=== PATIENT | female | born 1955 ===

== ENCOUNTER 2020-04-14 08:19 | Outpatient (REF) | payer MEDICARE, SELFPAY ==
[2020-04-14 09:37] LABS: MANUAL DIFF FLAG NO
[2020-04-14 09:43] LABS: Basophils Percent Auto 0.5 % (0-2); Eosinophils Absolute Auto 0.2 X10*3/uL (0.0-0.4); Eosinophils Percent Auto 2.3 % (0-4); Hematocrit 42.6 % (37-47); Hemoglobin 13.8 g/dl (12.0-16.0); Imm Gran Abs Auto 0.01 X10*3/uL (0.00-0.03); Imm Gran Pct Auto 0.1 % (0.0-0.4); Lymphocytes Absolute Auto 3.4 X10*3/uL (1.2-4.9); Lymphocytes Percent Auto 41.2 % (20-40); Mean Corpuscular HGB Conc 32.4 g/dl (31.0-35.0); Mean Corpuscular Hemoglobin 30.9 pg (27.0-33.0); Mean Corpuscular Volume 95.3 fL (80-98); Monocytes Absolute Auto 0.6 X10*3/uL (0.1-1.2); Monocytes Percent Auto 7.5 % (2-11); Neutrophils Percent Auto 48.4 % (45-73); Platelet Count 289 X10*3/uL (160-400); Red Blood Count 4.47 X10*6/uL (4.20-5.50); Red Cell Distribution Width 14.1 % (11.0-16.0); White Blood Count 8.3 X10*3/uL (4.8-10.8)
[2020-04-14 10:07] LABS: Alanine Aminotransferase 17 U/L (0-31); Albumin Level 4.1 g/dL (3.5-5.0); Alkaline Phosphatase 141 U/L (39-117); Anion Gap 13 (12-20); Aspartate Amino Transferase 16 U/L (5-31); Bilirubin Total 0.5 mg/dL (0.0-1.0); Blood Urea Nitrogen 9 mg/dL (9-16); Calcium 8.9 mg/dL (8.4-10.2); Carbon Dioxide 28 mmol/L (22-29); Chloride 106 mmol/L (96-108); Cholesterol 165 mg/dL; Estimated Glomerular Filt Rate > 60; Glucose Fasting 87 mg/dL (60-99); HDL Cholesterol 53 mg/dL; LDL Cholesterol Calculated 90 mg/dl; Potassium 4.1 mmol/l (3.3-5.1); Sodium 143 mmol/L (135-145); Total Protein 7.2 g/dL (6.5-8.0); Triglycerides 110 mg/dL
== END 2020-04-14 08:20 | disposition home or self-care (01) ==
LOC: HO.LAB 08:19
PROVIDERS: PCP Internal Medicine; Visit Provider Internal Medicine
DX: E78.5 Hyperlipidemia, unspecified (principal); E11.9 Type 2 diabetes mellitus without complications
CPT/HCPCS: 36415; 80053; 80061; 85025

== ENCOUNTER 2021-01-08 09:12 | Outpatient (REF) | payer MEDICARE, SELFPAY ==
[2021-01-08 11:21] LABS: Alanine Aminotransferase 20 U/L (0-31); Albumin Level 4.2 g/dL (3.5-5.0); Alkaline Phosphatase 133 U/L (39-117); Anion Gap 16 (12-20); Aspartate Amino Transferase 16 U/L (5-31); Bilirubin Total 0.5 mg/dL (0.0-1.0); Blood Urea Nitrogen 10 mg/dL (9-16); Calcium 9.6 mg/dL (8.4-10.2); Carbon Dioxide 27 mmol/L (22-29); Chloride 105 mmol/L (96-108); Cholesterol 169 mg/dL; Estimated Glomerular Filt Rate > 60; Glucose Fasting 101 mg/dL (60-99); HDL Cholesterol 56 mg/dL; LDL Cholesterol Calculated 92 mg/dl; Sodium 144 mmol/L (135-145); Total Protein 7.6 g/dL (6.5-8.0); Triglycerides 108 mg/dL
== END 2021-01-08 09:13 | disposition home or self-care (01) ==
LOC: HO.LAB 09:12
PROVIDERS: PCP Internal Medicine; Referring Provider Internal Medicine; Visit Provider Nurse Practitioner Family
DX: E78.5 Hyperlipidemia, unspecified (principal); Z13.1 Encounter for screening for diabetes mellitus
CPT/HCPCS: 36415; 80053; 80061

== ENCOUNTER 2021-03-09 07:22 | Outpatient (REF) | payer MEDICARE, SELFPAY ==
--- NOTE | ~2021-03-09 | MM_ITS ---
EXAMINATION: MM SCREENING DIGITAL BREAST TOMOSYNTHESIS, BILATERAL CLINICAL INFORMATION: Screening. Asymptomatic. The lifetime risk of breast cancer based on the Tyrer-Cuzick Model is 7.8%. COMPARISON: Mammography: 04/17/2019 and studies dating back to 08/24/2015. TECHNIQUE: Digital breast tomosynthesis was performed in both the craniocaudal and mediolateral oblique views along with computer-aided detection (CAD). Synthesized 2D images were generated from the tomosynthesis. FINDINGS: The breasts are heterogeneously dense, which may obscure small masses (ACR BI-RADS breast composition Category c). There is a stable parenchymal pattern seen bilaterally with a region of some asymmetric density about the anterior central and medial aspect of the right breast. There is multiplicity and bilaterality of calcifications with the majority being stable. There is one linear grouping of calcifications about the inferior aspect deep left breast, likely benign as well, however magnification views in craniocaudal and 90 degree mediolateral views are suggested. MM/MM tomosynthesis screening BI IMPRESSION: Probable benign left breast calcifications for further evaluation. ASSESSMENT: BI-RADS 0: Incomplete - Need Additional Imaging Evaluation RECOMMENDATION: 1. Additional views of the left breast. This patient's information was entered into a reminder system with a target due date for their next mammogram.
--- NOTE | ~2021-03-09 | MM_ITS ---
EXAMINATION: BONE DENSITOMETRY CLINICAL INDICATION: Menopause. COMPARISON: None (current study represents initial baseline exam). TECHNIQUE: Using a [employer] DXA System (software version: 13.1) manufactured by [employer], dual-energy x-ray absorptiometry was performed of the lumbar spine and right hip. The images are of good technical quality. Summary results are attached. FINDINGS: AP SPINE L1-L4: BMD 1.345 g/cm2, Z-score 2.2, T-score 1.4, normal. RIGHT FEMUR, NECK: BMD 0.828 g/cm2, Z-score -0.5, T-score -1.5, osteopenia. RIGHT FEMUR, TOTAL: BMD 0.782 g/cm2, Z-score -1.1, T-score -1.8, osteopenia. IDENTIFIED RISK FACTORS: Menopause, history of fracture (adult), osteoporosis. HISTORY OF FRACTURE: Spine, femur/hip, shoulder, elbow. MEDICATIONS: Vitamin D. MM/XR DEXA axial skeleton IMPRESSION: 1. DIAGNOSIS: Osteopenia based on the lowest T-score value of -1.8 in the total femur applying World Health Organization criteria. 2. 10-YEAR FRACTURE RISK PREDICTION, FRAX: Major osteoporotic fracture (clinical spine, forearm, hip or shoulder) 13.8%. Hip fracture 1.4%. 3. Treatment Recommendations: NOF guidelines recommend consideration for treatment in postmenopausal women and men age 50 and older presenting with the following: -A hip or vertebral (clinical or morphometric) fracture. -T-score less than or equal to -2.5 at the femoral neck or spine after appropriate evaluation to exclude secondary causes. -Low bone mass at the hip or spine and a 10-year fracture probability by FRAX of greater than or equal to 3% for hip fracture or greater than or equal to 20% for major osteoporotic fracture based on the [place] adapted WHO algorithm. 4. Other Recommendations: All treatment decisions require clinical judgment and consideration of individual patient factors, including patient preferences, comorbidities, previous drug use, risk factors not captured in the FRAX model (e.g. frailty, falls, vitamin D deficiency, increased bone turnover, interval significant decline in bone density) and possible under or overestimation of fracture risk by FRAX. Additional medical evaluation for secondary cause of low bone mineral density may be appropriate. FUTURE SCAN RECOMMENDATION: People with diagnosed cases of osteoporosis or at high risk for fracture should have regular bone mineral density tests. For patients eligible for Medicare, routine testing is allowed once every 2 years. The testing frequency can be increased to one year for patients who have rapidly progressing disease, those who are receiving or discontinuing medical therapy to restore bone mass, or have additional risk factors.
== END 2021-03-09 07:23 | disposition home or self-care (01) ==
LOC: HO.MAMMO 07:22
PROVIDERS: Visit Provider Internal Medicine
DX: Z13.820 Encounter for screening for osteoporosis (principal); Z78.0 Asymptomatic menopausal state; Z12.31 Encounter for screening mammogram for malignant neoplasm of breast
CPT/HCPCS: 77063; 77067; 77080

== ENCOUNTER 2021-03-12 07:57 | Outpatient (REF) | payer MEDICARE, SELFPAY ==
--- NOTE | ~2021-03-12 | MM_ITS ---
EXAMINATION: MM DIAGNOSTIC DIGITAL MAMMOGRAPHY, LEFT CLINICAL INFORMATION: Recall from screening for increased grouped calcifications posterior 6:00 left breast. COMPARISON: Mammography: 03/09/2021, 04/17/2019 TECHNIQUE: Digital mammography is performed in the following views: Magnification CC, magnification ML. FINDINGS: There are scattered areas of fibroglandular density (ACR BI-RADS breast composition Category b). The additional magnification views show increased grouped relatively coarse calcifications posterior 6:00 position. Suspect probable fibroadenomatous changes. Calcifications will be reassessed again in 6 months with diagnostic mammography to include magnification views. Results are discussed with the patient at time of visit. MM/MM added views LT IMPRESSION: Increased grouped relatively coarse calcifications posterior 6:00 position, suspect fibroadenomatous change. ASSESSMENT: BI-RADS 3: Probably Benign RECOMMENDATION: Diagnostic left mammography in 6 months. This patient's information was entered into a reminder system with a target due date for their next mammogram.
== END 2021-03-12 07:58 | disposition home or self-care (01) ==
LOC: HO.MAMMO 07:57
PROVIDERS: Visit Provider Internal Medicine
DX: R92.1 Mammographic calcification found on diagnostic imaging of breast (principal)
CPT/HCPCS: 77065

== ENCOUNTER 2021-10-06 13:34 | Outpatient (REF) | payer OTHER, SELFPAY ==
--- NOTE | ~2021-10-06 | MM_ITS ---
EXAMINATION: MM DIAGNOSTIC DIGITAL BREAST TOMOSYNTHESIS, LEFT CLINICAL INFORMATION: Short interval six-month follow-up probable benign coarse calcifications posterior 6:00 position, suspect fibroadenomatous change. TC score 8%. COMPARISON: Mammography: 03/12/2021, 03/09/2021 (BI-RADS 0), 04/17/2019, 08/25/2015 TECHNIQUE: Digital breast tomosynthesis is performed in both the craniocaudal and mediolateral oblique views along with computer-aided detection (CAD). Synthesized 2D images are generated from the tomosynthesis. Additional magnification CC and magnification ML views are obtained. FINDINGS: There are scattered areas of fibroglandular density (ACR BI-RADS breast composition Category b). Parenchymal pattern is similar to prior studies and there is no developing density or interval mass or architectural abnormality. Again, there are scattered round and rim calcifications. Calcifications for follow-up posterior central 6:00 position are relatively coarse and tightly grouped and without significant change. Fibroadenomatous calcifications are suspected. These will be reassessed again in 6 months at time of bilateral annual mammography. Results are provided to the patient at time of visit by the technologist. MM/MM tomosynthesis diagnostic LT IMPRESSION: Probable benign calcifications posterior central 6:00 position, no significant change. ASSESSMENT: BI-RADS 3: Probably Benign RECOMMENDATION: Diagnostic mammography at time of annual bilateral exam, due in 6 months. This patient's information was entered into a reminder system with a target due date for their next mammogram.
== END 2021-10-06 13:35 | disposition home or self-care (01) ==
LOC: HO.MAMMO 13:34
PROVIDERS: PCP Internal Medicine; Visit Provider Internal Medicine
DX: R92.1 Mammographic calcification found on diagnostic imaging of breast (principal)
CPT/HCPCS: 77061; 77065

== ENCOUNTER 2021-11-07 12:32 | Emergency (ER) | payer OTHER, SELFPAY ==
--- NOTE | ~2021-11-07 | XR_ITS ---
EXAMINATIONS: XR wrist LT 2V CLINICAL INFORMATION: Reason for Exam FALL COMPARISON: None VIEWS: Frontal lateral and oblique scaphoid view FINDINGS: There is a comminuted intra-articular fracture of the distal radius. Distal ulna and ulnar styloid are intact. Carpal bones, intercarpal and carpometacarpal joints are intact. Bone alignments otherwise satisfactory. XR/XR wrist LT 2V IMPRESSION: Comminuted mildly displaced intra-articular distal radial fracture.
--- NOTE | ~2021-11-07 | CT_ITS ---
EXAMINATION: CT HEAD WITHOUT CONTRAST CT FACIAL BONES WITHOUT CONTRAST CT CERVICAL SPINE WITHOUT CONTRAST CLINICAL INFORMATION: Fall. Injury. Head and neck pain. COMPARISON: Brain MRI from 04/01/2009 TECHNIQUE: Imaging was performed from the skull base to vertex without intravenous administration of contrast. In addition, helical noncontrast CT imaging was acquired through the cervical spine and facial bones and source images were reviewed along with axial reconstructions and sagittal and coronal MPRs. This CT examination was performed using dose optimization techniques as appropriate, variously including the following: *Automated exposure control. *Adjustment of mA and/or kV according to patient size (this includes techniques or standardized protocols for targeted exams where dose is matched to indication/reason for exam; i.e. extremities or head). *Use of iterative reconstruction technique. DLP: 1462 mGy-cm FINDINGS: Head: There is no evidence of acute intracranial hemorrhage or edematous territorial infarction. There is no abnormal attenuation within the brain parenchyma. Whiting-white matter differentiation is preserved. The ventricles are normal in size and configuration. No evidence for obstructive hydrocephalus. No abnormal mass effect or midline shift. No extra-axial fluid collections. Calcific atherosclerotic disease of the intracranial internal carotid and vertebral arteries. No hyperdense vessel sign. No acute soft tissue or osseous abnormalities. The mastoid air cells and middle ear cavities remain well aerated. Maxillofacial Bones: No evidence of maxillofacial bone fractures. The zygomatic arches remain intact. No nasal bone fracture. The nasal septum remains midline. No evidence of mandibular or maxillary fracture. The mandibular condyles remain well-seated in their respective temporal articular grooves. Normal appearance of the intraconal and extraconal fat. No evidence of traumatic injury to the extraocular musculature or globes. The paranasal sinuses and mastoid air cells remain well aerated. No layering fluid collections. Multifocal odontogenic enamel erosions and periapical lucencies. Cervical Spine: The atlantooccipital and atlantoaxial articulations remain well aligned. Straightening of the normal cervical lordosis. Otherwise, there is anatomic alignment of the vertebral bodies and posterior elements. No evidence of acute fracture or subluxation. Congenital nonunion of the posterior arch of C1. The vertebral body heights are maintained. Advanced degenerative disc disease at C6-C7. Moderate degenerative disc disease from C3-C6. Associated disc-osteophyte complex formation. There appears to be at least mild spinal canal stenosis at C5-C6. Facet and uncovertebral joint arthropathy leads to osseous encroachment on the neural foramina from C2-C7. There is no prevertebral soft tissue swelling. The thyroid gland and remaining cervical soft tissues are normal in appearance. The lung apices demonstrate no abnormalities. CT/CT cervical spine wo con IMPRESSION: 1. No evidence of acute intracranial hemorrhage or edematous territorial infarction. 2. No evidence of acute fracture or traumatic subluxation of the cervical spine. 3. Moderate multilevel degenerative spondyloarthropathy of the cervical spine. Most notably on this limited exam without intrathecal contrast, there appears to be at least mild spinal canal stenosis at C5-C6. 4. No evidence of acute fracture of the maxillofacial bones. Moderate multifocal odontogenic disease.
--- NOTE | ~2021-11-07 | XR_ITS ---
EXAMINATION: XR ELBOW, RIGHT CLINICAL INFORMATION: Fall COMPARISON: None TECHNIQUE: AP, lateral, and oblique views of the right elbow. FINDINGS: Mildly displaced intra-articular radial head fracture. Anterior sail sign and positive posterior fat pad. Distal humerus and proximal ulna are intact. XR/XR elbow RT 2V IMPRESSION: Mildly displaced intra-articular radial head fracture.
[2021-11-07 13:00] VITALS: BP 176/90; PULSE 102; RESP 18; O2SAT 96; BMI 32.9
--- NOTE | 2021-11-07 14:11 | ED_ITS ---
HPI - General Adult General Chief complaint: Fall Stated complaint: fall; shoulder and elbow pain Time Seen by Provider: 11/07/21 14:10 Source: patient and family (daughter) Mode of arrival: ambulatory Limitations: no limitations History of Present Illness HPI narrative: Patient is a 66 year old female presenting to the emergency department today with right elbow pain and left wrist pain. Patient states that she was walking when she tripped and fell forward. Patient states that she struck her head but did not have any loss of consciousness. Patient denies any dizziness, lightheadedness, abdominal pain, nausea, vomiting, fever, chills, blurry vision, double vision, loss of vision, chest pain, difficulty breathing, shortness of breath, back pain, night sweats, pain with urination, increased urinary frequency, increased urinary urgency, blood in her urine or stool, syncope or a near syncopal episode, bowel incontinence, bladder incontinence, bowel retention, bladder retention, or any other complaints at this time. Onset (ago): minute(s) Location: face, left, right and upper extremity Radiation: non-radiation Severity: mild Severity scale (1-10): 5 Quality: dull Pain Consistency: constant Relieving factors: none Exacerbating factors: movement Associated symptoms: denies other symptoms Treatments prior to arrival: none Related Data Home Medications Medication Instructions Recorded Confirmed atorvastatin 10 mg tablet 10 mg PO BEDTIME 11/07/21 11/07/21 cetirizine 10 mg capsule (Zyrtec) 10 mg PO BEDTIME 11/07/21 11/07/21 Allergies Allergy/AdvReac Type Severity Reaction Status Date / Time prednisone [PREDNISONE] Allergy Intermediate anxiety Verified 08/05/21 10:46 doxycycline [DOXYCYCLINE] Allergy Unknown NAUSEA & Verified 08/05/21 10:46 VOMITING, vomiting Review of Systems Constitutional: Constitutional: Reports no additional constitutional complaints, Denies chills, Denies fever(s) and Denies night sweats Eyes: Eyes: Reports no additional eye complaints, Denies blurry vision, Denies change in vision, Denies diplopia, Denies eye discharge, Denies loss of vision and Denies eye pain ENT: Denies dizziness Cardiovascular: Cardiovascular: Reports no additional cardiovascular complaints, Denies chest pain, Denies lightheadedness, Denies Loss of Consciousness and Denies dyspnea Respiratory: Respiratory: Reports no additional respiratory complaints and Denies dyspnea Gastrointestinal: Gastrointestinal: Reports no additional gastrointestinal complaints, Denies abdominal pain, Denies melena, Denies hematochezia, Denies change in bowel habits and Denies change in stool character Genitourinary: Genitourinary: Denies hematuria, Denies urinary frequency, Denies dysuria, Denies urinary incontinence, Denies urinary hesitancy and Denies urinary urgency Musculoskeletal: Musculoskeletal: Reports no additional musculoskeletal complaints, Denies numbness and Denies tingling Comments: right elbow pain, left wrist pain Neurologic: Denies dizziness, Denies loss of vision, Denies numbness and Denies tingling Psychiatric: Psychiatric: Reports no additional psychiatric complaints Endocrine: Endocrine: Reports no additional endocrine complaints Hematologic/Lymphatic: Hematologic/Lymphatic: Reports no additional hematologic/lymphatic complaints Allergic/Immunologic: Allergic/Immunologic: Reports no additional allergic/immunologic complaints PMFSH Past Medical History Attestation statement: The following information was validated with the patient. Source: old records reviewed Medical History Acute sinusitis Hyperlipidemia Hypertension Obesity Post-menopausal Screening for breast cancer Screening for diabetes mellitus Surgical History History of cholecystectomy History of hip surgery Family History Family History Father Cerebral aneurysm Mother Stroke Renal failure Maternal Grandmother Glaucoma Social History Social History Housing: Apartment Alcohol intake: never Patient Tobacco Use Status: Former Tobacco user Tobacco use type: Cigarette e-Cigarette/Vaping Use: Never Used Second Hand Smoke Exposure: No Advance Directives: No Advance Directives Information Provided: No Current occupational status: retired Cognitive needs: No Hearing needs: No Vision needs: No Physical Exam ED Vital Signs: Vital Signs - 24 hr 11/07/21 13:00 Pulse Rate 102 H Respiratory Rate 18 Blood Pressure 176/90 H Pulse Oximetry 96 Oxygen Delivery Method Room Air BMI result Body Mass Index 32.9 Const General: cooperative, no acute distress, alert and awake Nutritional Appearance: well nourished Orientation/consciousness: patient oriented x3 Limitations: no limitations HENMT Other: minimal bruising to the right facial cheek Ears: hearing grossly normal bilaterally and external ears normal General nose exam: Normal external nose present, no nasal discharge noted and no epistaxis Face and sinus: Yes normal facial exam, No abrasion and No laceration Mouth: Normal oral and palatal mucosa present, no drooling and no muffled voice Eyes General: appearance normal, both eyes and all related structures Periorbital: periorbital findings normal Eyelids: Yes eyelids normal Conjunctivae: conjunctivae normal Pupils: Equal, round and reactive pupils present EOM: EOMs intact bilaterally Neck Neck: Yes normal visual inspection, Yes full ROM and Yes no lymphadenopathy Chest Chest palpation & inspection: normal inspection of the chest Resp Effort & Inspection: normal respiratory effort and able to speak in complete sentences Auscultation: clear to auscultation bilaterally Cardio Rate: regular rate Rhythm: regular rhythm GI Inspection: Yes normal to inspection Palpation (GI): Soft to palpation, not firm, nontender and no guarding General: Yes no CVA tenderness Back/Spine/Pelvis Back: no CVA tenderness Cervical Spine: normal cervical lordosis and cervical ROM normal Thoracic/Lumbar Spine: thoracic and lumbar spine normal to inspection and thoraco-lumbar ROM normal Pelvis: no pain with anterior-posterior compression Neuro General: patient oriented x3 and moves all extremities Cranial nerves: Yes Equal, round and reactive pupils present Cognition (Neuro): normal cognition Motor exam (neuro): 5/5 motor strength present throughout Sensory Exam: Normal double simultaneous stimulation for sensation Coordination: [id number] test normal Extrem Other: pain with movement in the left wrist and right elbow General: Yes normal to inspection and Yes capillary refill normal Psych Appearance: grossly normal Mental Status: mental status grossly normal Affect: normal affect Attitude: cooperative Thought process: Normal thought process present Thought content: Normal thought content present Insight: Good insight present (Psych) Procedures Orthopedic Splinting/Casting Injury #1: Side: right Upper Extremity Injury Location: elbow Upper Extremity Immobilizer: sling/shoulder immobilizer Injury #2: Side: left Upper Extremity Injury Location: wrist Upper Extremity Immobilizer: sling/shoulder immobilizer and sugar tong splint Medical Decision Making [facility] Narrative Medical decision making narrative: Patient is a 66 year old female presenting to the emergency department today with right elbow pain and left wrist pain after a fall. Patient's physical exam showed minimal bruising to the right facial cheek, and pain with ROM of the right elbow and left wrist. Patient's left wrist x-ray showed an acute comminuted, mildly displaced, intra-articular, distal radial fracture. Patient's right elbow x-ray showed a mildly displaced intra-articular, radial head fracture. Patient's head, c-spine, and facial CTs showed no acute process. I explained my physical exam findings as well as all test results to the patient and the patient's daughter. I answered all questions asked by the patient and the patient's daughter. Patient received PO [place], a sling for the right elbow, and a sugar tong splint with sling for the left elbow which she stated helped her pain significantly. Splinting went without incident, per procedure notes. Patient's PMS was intact prior to and after splint placement. 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 Patient's family requested the patient be evaluated by case management for possible short term rehab placement. CM and PT consults placed. Patient to remain in the emergency department until a safe plan for discharge is establish ed. Differential Diagnosis Differential Diagnosis: right elbow fracture, left wrist fracture, frequent falls Medical Records Medical records reviewed: Yes I reviewed the patient's medical records. Lab Data Lab results reviewed: Yes I reviewed the patient's lab results. Labs: Lab Results 11/07/21 Range/Units 16:28 COVID-19 ([facility]) Negative (Negative) COVID-19 Clin Com See Note Imaging Data Right elbow x-ray: Attestation: I personally reviewed and interpreted this imaging study as f pricillas: My impression: Acute radial head fracture. Radiologist's impression: EXAMINATION: XR ELBOW, RIGHT CLINICAL INFORMATION: Fall? COMPARISON: None? TECHNIQUE: AP, lateral, and oblique views of the right elbow. FINDINGS: Mildly displaced intra-articular radial head fracture. Anterior sail sign and positive posterior fat pad. Distal humerus and proximal ulna are intact.? XR/XR elbow RT 2V IMPRESSION: Mildly displaced intra-articular radial head fracture. Dictated By: Zuri Mohan MD Signed By: Electronically signed by Zuri Mohan MD 11/07/21 4548 Left wrist x-ray: Attestation: I personally reviewed and interpreted this imaging study as follows: My impression: Acute distal radius fracture. Radiologist's impression: EXAMINATIONS:? XR wrist LT 2V CLINICAL INFORMATION: Reason for Exam FALL COMPARISON: None VIEWS: Frontal lateral and oblique? scaphoid view FINDINGS: There is a comminuted intra-articular fracture of the distal radius. Distal ulna and ulnar styloid are intact. Carpal bones, intercarpal and carpometacarpal joints are intact. Bone alignments otherwise satisfactory. XR/XR wrist LT 2V IMPRESSION: Comminuted mildly displaced intra-articular distal radial fracture. Dictated By: Zuri Mohan MD Signed By: Electronically signed by Zuri Mohan MD 11/07/[address] head, C-Spine, facial: Attestation: I personally reviewed and interpreted this imaging study as follows: My impression: No acute process. Radiologist's impression: EXAMINATION: CT HEAD WITHOUT CONTRAST CT FACIAL BONES WITHOUT CONTRAST CT CERVICAL SPINE WITHOUT CONTRAST CLINICAL INFORMATION: Fall. Injury. Head and neck pain.? COMPARISON: Brain MRI from 04/01/2009 TECHNIQUE: Imaging was performed from the skull base to vertex without intravenous administration of contrast. In addition, helical noncontrast CT imaging was acquired through the cervical spine and facial bones and source images were reviewed along with axial reconstructions and sagittal and coronal MPRs. This CT examination was performed using dose optimization techniques as appropriate, variously including the following: *Automated exposure control. *Adjustment of mA and/or kV according to patient size (this includes techniques or standardized protocols for targeted exams where dose is matched to indication/reason for exam; i.e. extremities or head). *Use of iterative reconstruction technique. DLP: 1462 mGy-cm FINDINGS: Head: There is no evidence of acute intracranial hemorrhage or edematous territorial infarction. There is no abnormal attenuation within the brain parenchyma.? Whiting-white matter differentiation is preserved. The ventricles are normal in size and configuration. No evidence for obstructive hydrocephalus. No abnormal mass effect or midline shift. No extra-axial fluid collections. Calcific atherosclerotic disease of the intracranial internal carotid and vertebral arteries. No hyperdense vessel sign. No acute soft tissue or osseous abnormalities. The mastoid air cells and middle ear cavities remain well aerated. Maxillofacial Bones: No evidence of maxillofacial bone fractures. The zygomatic arches remain intact. No nasal bone fracture. The nasal septum remains midline. No evidence of mandibular or maxillary fracture. The mandibular condyles remain well-seated in their respective temporal articular grooves. Normal appearance of the intraconal and extraconal fat. No evidence of traumatic injury to the extraocular musculature or globes. The paranasal sinuses and mastoid air cells remain well aerated. No layering fluid collections. Multifocal odontogenic enamel erosions and periapical lucencies. Cervical Spine: The atlantooccipital and atlantoaxial articulations remain well aligned. Straightening of the normal cervical lordosis. Otherwise, there is anatomic alignment of the vertebral bodies and posterior elements. No evidence of acute fracture or subluxation. Congenital nonunion of the posterior arch of C1. The vertebral body heights are maintained. Advanced degenerative disc disease at C6-C7. Moderate degenerative disc disease from C3-C6. Associated disc-osteophyte complex formation. There appears to be at least mild spinal canal stenosis at C5-C6. Facet and uncovertebral joint arthropathy leads to osseous encroachment on the neural foramina from C2-C7. There is no prevertebral soft tissue swelling. The thyroid gland and remaining cervical soft tissues are normal in appearance. The lung apices demonstrate no abnormalities. CT/CT head/brain wo con IMPRESSION: 1. No evidence of acute intracranial hemorrhage or edematous territorial infarction. ? 2. No evidence of acute fracture or traumatic subluxation of the cervical spine. ? 3. Moderate multilevel degenerative spondyloarthropathy of the cervical spine. Most notably on this limited exam without intrathecal contrast, there appears to be at least mild spinal canal stenosis at C5-C6. ? 4. No evidence of acute fracture of the maxillofacial bones. Moderate multifocal odontogenic disease. Dictated By: Sg Ross DO Signed By: Electronically signed by Sg Ross DO 11/07/21 7230 Discharge Plan Discharge Clinical Impression: Falls frequently, Elbow fracture, right, Fracture of left wrist Patient Disposition: Still a Patient Prescriptions: No Action atorvastatin 10 mg tablet 10 mg PO BEDTIME Zyrtec 10 mg capsule 10 mg PO BEDTIME Print Language: Turkmen
[2021-11-07] MEDS: HYDROcodone Bit/Acetam 5/325 TABLET 1 TAB PO (14:29)
[2021-11-07 16:50] LABS: IDNOW Serial# 16C4AD1C
[2021-11-07 16:51] LABS: COVID-19 Test Negative (Negative)
--- NOTE | 2021-11-07 17:00 | PHA.MEDREC ---
Pharmacy Consult ? Medication Reconciliation Pharmacy has completed the medication reconciliation.
[2021-11-07 21:06] VITALS: BP 137/70; PULSE 64; RESP 18; TEMP 36.4; O2SAT 98
[2021-11-07] MEDS: Loratadine 10 MG TABLET PO (21:40)
[2021-11-07] MEDS: Atorvastatin Calcium 10 MG TABLET PO (21:40)
[2021-11-07] MEDS: Morphine Sulfate Immed Release 15 MG TABLET PO (22:56)
[2021-11-07] MEDS: Ondansetron ODT 4 MG TAB.RAPDIS TRANSLINGU (22:56)
[2021-11-08 01:05] VITALS: RESP 17
[2021-11-08 01:37] VITALS: BP 136/72; PULSE 56; RESP 16; TEMP 36.7; O2SAT 98
[2021-11-08] MEDS: HYDROcodone Bit/Acetam 5/325 TABLET 1 TAB PO ×2 (03:14→08:33)
[2021-11-08 06:23] VITALS: BP 151/84; PULSE 77; RESP 17; TEMP 36.8; O2SAT 97
--- NOTE | 2021-11-08 09:50 | MHC.CM.ED ---
Received case management consult overnight. Patient came to the ER due to a fall. Found to have a right elbow fracture and left wrist fracture. Physical therapy eval completed. Home OT is being recommended. Patient lives alone. Patient's daughter, Caitlyn is going to take a FMLA from work to care for her mom. PCP is Dr Mancera. Patient received 3 Moderna vaccines. Patient is active with [facility]. Spoke with Jerrica at [facility]. They are unable to provide PT/OT at this time and are willing to authorize referral to [facility]. Referral made via [facility]. Patient's daughter will be in ER at 1pm to transport patient home. Patient, Maria De Jesus ESQUEDA and Stephany ASHER aware. Continue to monitor for d/c needs.
--- NOTE | 2021-11-08 10:14 | PC.NURSE ---
Pts daughter called and updated on plan of care. Daughter to pick pt up at 1300. pt is a/o. medicated with norco for pain. no other complaints at this time.
== END 2021-11-08 13:13 | disposition home or self-care (01) ==
PROVIDERS: Physician Assistant Medical; Emergency Provider Emergency Medicine; PCP Internal Medicine
DX: S52.572A Other intraarticular fracture of lower end of left radius, initial encounter for closed fracture (principal); S52.121A Displaced fracture of head of right radius, initial encounter for closed fracture; S00.83XA Contusion of other part of head, initial encounter; R29.6 Repeated falls; I10 Essential (primary) hypertension; Z20.822 Contact with and (suspected) exposure to COVID-19; W01.0XXA Fall on same level from slipping, tripping and stumbling without subsequent striking against object, initial encounter; Y93.01 Activity, walking, marching and hiking; Y92.9 Unspecified place or not applicable; Y99.9 Unspecified external cause status
CPT/HCPCS: 29125; 70450; 70486; 72125; 73070; 73100; 87635; 97162; 99284

== ENCOUNTER 2021-11-09 08:16 | Outpatient (REF) | payer OTHER, SELFPAY ==
--- NOTE | ~2021-11-09 | XR_ITS ---
EXAMINATION: LEFT WRIST X-RAY CLINICAL INFORMATION: Fracture COMPARISON: Previous x-ray 11/07/2021 TECHNIQUE: 3 views of the left wrist FINDINGS: There is a comminuted minimally displaced fracture of the left distal radius that appears unchanged. This is a probable joint. There is a nondisplaced ulnar styloid fracture. Carpal bones are normal. Bones are osteopenic. There is soft tissue swelling about the wrist. XR/XR wrist LT w scaphoid IMPRESSION: No change in the left distal radius and ulnar styloid fractures from 11/07/2021 exam.
--- NOTE | ~2021-11-09 | XR_ITS ---
EXAMINATION: XR ELBOW, LEFT CLINICAL INFORMATION: Pain. COMPARISON: None TECHNIQUE: AP, lateral, and oblique views of the left elbow. FINDINGS: There is no visible acute fracture, dislocation or subluxation. No bony erosive changes. The soft tissues are normal. XR/XR elbow LT min 3V IMPRESSION: Unremarkable left elbow exam.
== END 2021-11-09 08:17 | disposition home or self-care (01) ==
LOC: HO.HOSX 08:16
PROVIDERS: Visit Provider Physician Assistant
DX: S52.502A Unspecified fracture of the lower end of left radius, initial encounter for closed fracture (principal); S52.121A Displaced fracture of head of right radius, initial encounter for closed fracture; W01.0XXA Fall on same level from slipping, tripping and stumbling without subsequent striking against object, initial encounter; Y93.9 Activity, unspecified; Y92.9 Unspecified place or not applicable; Y99.9 Unspecified external cause status
CPT/HCPCS: 73080; 73110; 99202

== ENCOUNTER 2021-11-16 07:45 | Outpatient (REF) | payer OTHER, SELFPAY ==
--- NOTE | ~2021-11-16 | XR_ITS ---
EXAMINATION: XR WRIST LT MIN 3V XR ELBOW RT MIN 3V CLINICAL INFORMATION: Reason for Exam M25.539 - Pain in unspecified wrist COMPARISON: X-rays of the left wrist from 06/11/2021. X-rays of the right elbow from 06/09/2021 TECHNIQUE: PA, oblique and lateral views of the left wrist AP, oblique and lateral views of the right elbow XR/XR elbow RT min 3V FINDINGS/IMPRESSION: Left wrist: * Unchanged alignment of the acute comminuted distal radial metaphyseal fracture with dorsal cortical impaction and mild dorsal angulation of the distal radial articular surface, with intra-articular extension. * Unchanged alignment of the displaced ulnar styloid avulsion fracture. * No additional fractures. * Bones are demineralized. * Soft tissue swelling dorsal to the metacarpophalangeal joints. Left elbow: * Unchanged alignment of the mildly displaced intra-articular fracture of the radial head. * No additional fractures. * Medial and lateral epicondylar enthesopathy redemonstrated. * Small joint effusion, decreased in size from prior. * Soft tissue swelling surrounding the elbow joint.
--- NOTE | ~2021-11-16 | XR_ITS ---
EXAMINATION: XR WRIST LT MIN 3V XR ELBOW RT MIN 3V CLINICAL INFORMATION: Reason for Exam M25.539 - Pain in unspecified wrist COMPARISON: X-rays of the left wrist from 06/11/2021. X-rays of the right elbow from 06/09/2021 TECHNIQUE: PA, oblique and lateral views of the left wrist AP, oblique and lateral views of the right elbow XR/XR wrist LT min 3V FINDINGS/IMPRESSION: Left wrist: * Unchanged alignment of the acute comminuted distal radial metaphyseal fracture with dorsal cortical impaction and mild dorsal angulation of the distal radial articular surface, with intra-articular extension. * Unchanged alignment of the displaced ulnar styloid avulsion fracture. * No additional fractures. * Bones are demineralized. * Soft tissue swelling dorsal to the metacarpophalangeal joints. Left elbow: * Unchanged alignment of the mildly displaced intra-articular fracture of the radial head. * No additional fractures. * Medial and lateral epicondylar enthesopathy redemonstrated. * Small joint effusion, decreased in size from prior. * Soft tissue swelling surrounding the elbow joint.
== END 2021-11-16 07:46 | disposition home or self-care (01) ==
LOC: HO.HOSX 07:45
PROVIDERS: Visit Provider Physician Assistant
DX: S52.502A Unspecified fracture of the lower end of left radius, initial encounter for closed fracture (principal); S52.121A Displaced fracture of head of right radius, initial encounter for closed fracture; M25.562 Pain in left knee; G89.29 Other chronic pain
CPT/HCPCS: 29085; 73080; 73110; 99212

== ENCOUNTER 2021-12-14 13:01 | Outpatient (REF) | payer OTHER, SELFPAY ==
--- NOTE | ~2021-12-14 | XR_ITS ---
EXAMINATION: XR ELBOW, RIGHT XR WRIST, LEFT CLINICAL INFORMATION: Pain COMPARISON: Radiographs 11/16/2021. TECHNIQUE: 3 views of the right elbow. 3 views of the left wrist. FINDINGS: Right Elbow: No change in the appearance of the radial head fracture. The joint effusion has decreased. Enthesopathy at the common flexor and common extensor tendon origins again noted as well as mild degenerative changes. Left Wrist: No significant change in the appearance of the distal radius fracture with dorsal angulation. Tiny avulsion fracture at the tip of the ulnar styloid. Diffuse osteopenia. No new abnormality. XR/XR elbow RT min 3V IMPRESSION: Stable appearance of the right radial head fracture and left wrist fracture. Osteopenia.
--- NOTE | ~2021-12-14 | XR_ITS ---
EXAMINATION: XR ELBOW, RIGHT XR WRIST, LEFT CLINICAL INFORMATION: Pain COMPARISON: Radiographs 11/16/2021. TECHNIQUE: 3 views of the right elbow. 3 views of the left wrist. FINDINGS: Right Elbow: No change in the appearance of the radial head fracture. The joint effusion has decreased. Enthesopathy at the common flexor and common extensor tendon origins again noted as well as mild degenerative changes. Left Wrist: No significant change in the appearance of the distal radius fracture with dorsal angulation. Tiny avulsion fracture at the tip of the ulnar styloid. Diffuse osteopenia. No new abnormality. XR/XR wrist LT min 3V IMPRESSION: Stable appearance of the right radial head fracture and left wrist fracture. Osteopenia.
== END 2021-12-14 13:02 | disposition home or self-care (01) ==
LOC: HO.HOSX 13:01
PROVIDERS: Visit Provider Physician Assistant
DX: S52.502A Unspecified fracture of the lower end of left radius, initial encounter for closed fracture (principal); S52.121A Displaced fracture of head of right radius, initial encounter for closed fracture; X58.XXXA Exposure to other specified factors, initial encounter; Y93.9 Activity, unspecified; Y92.9 Unspecified place or not applicable; Y99.9 Unspecified external cause status
CPT/HCPCS: 73080; 73110; 99212

== ENCOUNTER 2022-01-14 07:21 | Outpatient (REF) | payer OTHER, SELFPAY ==
--- NOTE | ~2022-01-14 | XR_ITS ---
EXAMINATION: XR WRIST, LEFT CLINICAL INFORMATION: Fracture COMPARISON: Previous x-ray most recent November 2021 TECHNIQUE: PA, lateral, and oblique views of the left wrist. FINDINGS: The bones are osteopenic. There is transverse sclerosis of the distal radius suggestive of healing fracture. There is a nondisplaced ulnar styloid fracture. There is arthritis at the first SNF joint. Soft tissues are unremarkable. XR/XR wrist LT min 3V IMPRESSION: Healing nondisplaced distal radius fracture. No change in the ulnar styloid fracture. Osteopenia.
== END 2022-01-14 07:22 | disposition home or self-care (01) ==
LOC: HO.HOSX 07:21
PROVIDERS: Visit Provider Physician Assistant
DX: M25.532 Pain in left wrist (principal)
CPT/HCPCS: 73110

== ENCOUNTER 2022-01-14 10:16 | Outpatient (REF) | payer OTHER, SELFPAY ==
[2022-01-14 10:25] LABS: MANUAL DIFF FLAG NO
[2022-01-14 10:40] LABS: Basophils Absolute Auto 0.1 X10*3/uL (0.0-0.2); Basophils Percent Auto 0.7 % (0-2); Eosinophils Absolute Auto 0.2 X10*3/uL (0.0-0.4); Eosinophils Percent Auto 2.4 % (0-4); Hematocrit 43.2 % (37.0-47.0); Hemoglobin 14.2 g/dl (12.0-16.0); Imm Gran Abs Auto 0.02 X10*3/uL (0.00-0.03); Imm Gran Pct Auto 0.3 % (0.0-0.4); Lymphocytes Absolute Auto 2.8 X10*3/uL (1.2-4.9); Lymphocytes Percent Auto 37.9 % (20-40); Mean Corpuscular HGB Conc 32.9 g/dl (31.0-35.0); Mean Corpuscular Hemoglobin 31.4 pg (27.0-33.0); Mean Corpuscular Volume 95.6 fL (80.0-98.0); Mean Platelet Volume 9.5 fL (9.4-12.3); Monocytes Absolute Auto 0.6 X10*3/uL (0.1-1.2); Monocytes Percent Auto 7.8 % (2-11); Neutrophils Absolute Auto 3.8 x10*3/uL (2.0-8.3); Neutrophils Percent Auto 50.9 % (45-73); Platelet Count 250 X10*3/uL (160-400); Red Blood Count 4.52 X10*6/uL (4.20-5.50); Red Cell Distribution Width 13.1 % (11.0-16.0); White Blood Count 7.4 X10*3/uL (4.8-10.8)
[2022-01-14 11:09] LABS: Alanine Aminotransferase 21 U/L (0-31); Albumin Level 4.1 g/dL (3.5-5.0); Alkaline Phosphatase 134 U/L (39-117); Anion Gap 17 (12-20); Aspartate Amino Transferase 21 U/L (5-31); Bilirubin Total 0.5 mg/dL (0.0-1.0); Blood Urea Nitrogen 10 mg/dL (9-16); Calcium 9.3 mg/dL (8.4-10.2); Carbon Dioxide 26 mmol/L (22-29); Chloride 103 mmol/L (96-108); Cholesterol 175 mg/dL; Estimated Glomerular Filt Rate > 60; Glucose Fasting 96 mg/dL (60-99); HDL Cholesterol 52 mg/dL; LDL Cholesterol Calculated 96 mg/dl; Potassium 4.5 mmol/L (3.3-5.1); Sodium 141 mmol/L (135-145); Total Protein 7.7 g/dL (6.5-8.0); Triglycerides 136 mg/dL
[2022-01-14 11:32] LABS: Thyroid Stimulating Hormone 1.75 uIU/mL (0.32-4.0)
== END 2022-01-14 10:17 | disposition home or self-care (01) ==
LOC: HO.LAB 10:16
PROVIDERS: PCP Internal Medicine; Visit Provider Internal Medicine
DX: Z13.0 Encounter for screening for diseases of the blood and blood-forming organs and certain disorders involving the immune mechanism (principal); E78.5 Hyperlipidemia, unspecified; I10 Essential (primary) hypertension; E03.9 Hypothyroidism, unspecified; S52.502A Unspecified fracture of the lower end of left radius, initial encounter for closed fracture; S52.121A Displaced fracture of head of right radius, initial encounter for closed fracture
CPT/HCPCS: 36415; 80053; 80061; 84443; 85025; 99212

== ENCOUNTER 2022-04-17 21:14 | Emergency (ER) | payer OTHER, SELFPAY ==
--- NOTE | ~2022-04-17 | XR_ITS ---
Examination: XR hand wrist RT, XR knee RT 2V Indication: fall Comparison: No pertinent prior studies are currently available for comparison. Technique: 2 views of the right knee and 4 views of the right hand and wrist Findings: Right knee: No significant joint effusion. Bones are normal anatomic alignment with no acute fracture or dislocation. Degenerative changes are seen more so in the patellofemoral compartment and along the medial compartment. No bony destructive lesions or periosteal reaction. Mild vascular calcification. Right hand: Bones are in normal anatomic alignment. I do not appreciate any acute fracture or dislocation. Mild degenerative changes is seen about the carpal bones with small osteophyte formation. No bony destructive lesions or periosteal reaction. No radiopaque foreign body or soft tissue gas. XR/XR knee RT 2V Impression: Chronic appearing and degenerative changes but I do not appreciate any acute fracture or dislocation.
--- NOTE | ~2022-04-17 | XR_ITS ---
Examination: XR hand wrist RT, XR knee RT 2V Indication: fall Comparison: No pertinent prior studies are currently available for comparison. Technique: 2 views of the right knee and 4 views of the right hand and wrist Findings: Right knee: No significant joint effusion. Bones are normal anatomic alignment with no acute fracture or dislocation. Degenerative changes are seen more so in the patellofemoral compartment and along the medial compartment. No bony destructive lesions or periosteal reaction. Mild vascular calcification. Right hand: Bones are in normal anatomic alignment. I do not appreciate any acute fracture or dislocation. Mild degenerative changes is seen about the carpal bones with small osteophyte formation. No bony destructive lesions or periosteal reaction. No radiopaque foreign body or soft tissue gas. XR/XR hand wrist RT Impression: Chronic appearing and degenerative changes but I do not appreciate any acute fracture or dislocation.
[2022-04-17 21:26] VITALS: BP 181/80; PULSE 85; RESP 19; TEMP 36.7; O2SAT 96; BMI 35.9
[2022-04-17] MEDS: Acetaminophen 325 MG TABLET 650 MG PO (21:35)
--- NOTE | 2022-04-17 23:50 | PC.NURSE ---
Assumed care of patient.
[2022-04-17] MEDS: Ketorolac Tromethamine 30 MG/ML VIAL IM (23:57)
--- NOTE | 2022-04-18 00:02 | PC.NURSE ---
Administered ketorolac IM per Jul.
--- NOTE | 2022-04-18 00:03 | ED.EXTPRO ---
HPI - Extremity Problem General Chief complaint: Extremity Injury, Upper Stated complaint: fell, broken right hand Time Seen by Provider: 04/17/22 23:11 Source: patient Mode of arrival: ambulatory Limitations: no limitations History of Present Illness HPI Narrative: 66-year-old presents to ED for right wrist pain after falling today. Patient states she tripped and fell onto her right outstrectched hand and unto her knee. Patient denies hitting head or loss of consciousness. Patient denies any abdominal pain, chest pain, shortness of breath, neck pain, headache, blood in urine, blood in stool, vomiting blood, or loss of consciousness. Patient denies having any headache, abdominal pain, chest pain or dizziness before falling. Related Data Home Medications Medication Instructions Recorded Confirmed cetirizine 10 mg tablet 10 mg PO DAILY PRN allergies 11/09/21 04/06/22 Previous Rx's Medication Instructions Recorded nystatin 100,000 unit/gram topical 1 appl topical BID #30 grams 01/05/22 cream cyclobenzaprine 10 mg tablet 10 mg PO BEDTIME PRN muscle spasm 04/18/22 7 days #7 tabs ketorolac 10 mg tablet 10 mg PO QID PRN pain 5 days #20 04/18/22 tabs Allergies Allergy/AdvReac Type Severity Reaction Status Date / Time prednisone [PREDNISONE] Allergy Intermediate anxiety Verified 04/06/22 11:29 doxycycline [DOXYCYCLINE] Allergy Unknown NAUSEA & Verified 04/06/22 11:29 VOMITING, vomiting Review of Systems Review of Systems: Right wrist pain. Yes all other systems are reviewed and are negative PMFSH Past Medical History Medical History Acute sinusitis Hyperlipidemia Hypertension Obesity Post-menopausal Screening for breast cancer Screening for diabetes mellitus Surgical History History of cholecystectomy History of hip surgery Family History Family History Father Cerebral aneurysm Mother Stroke Renal failure Maternal Grandmother Glaucoma Social History Social History Housing: Apartment Alcohol intake: never Patient Tobacco Use Status: Former Tobacco user Tobacco use type: Cigarette e-Cigarette/Vaping Use: Never Used Second Hand Smoke Exposure: No Advance Directives: No Advance Directives Information Provided: No service: No Current occupational status: retired Cognitive needs: No Hearing needs: No Vision needs: No Physical Exam Vital Signs: Vital Signs: Last Vital Signs Temp 98.0 F 04/17/22 21:26 Pulse 85 04/17/22 21:26 Resp 19 04/17/22 21:26 BP 181/80 H 04/17/22 21:26 Pulse Ox 96 04/17/22 21:26 O2 Del Method 04/17/22 21:26 BMI result Body Mass Index 35.9 Const: Orientation/consciousness: oriented to time and patient oriented x3 HEENT: Head: Yes normal to inspection, Yes No palpable skull fracture present, Yes normocephalic, Yes atraumatic and No abrasion Ears: hearing grossly normal bilaterally, external ears normal, TM's normal bilaterally, EAC's normal, mastoids normal and no periauricular adenopathy Eyes: General: appearance normal, both eyes and all related structures Neck: Neck: Yes normal visual inspection, Yes full ROM, Yes no lymphadenopathy, Yes no meningeal signs, Yes trachea midline, Yes supple, No anterior neck swelling and No tender Chest: Chest palpation & inspection: normal inspection of the chest and normal palpation of entire chest wall Resp: Effort & Inspection: normal respiratory effort and able to speak in complete sentences Auscultation: clear to auscultation bilaterally Cardio: Jugular venous distension: no JVD Heart sounds: S1 normal heart sound present and S2 normal heart sound present GI: Inspection: Yes normal to inspection and No abdominal wall ecchymosis Palpation (GI): Soft to palpation, not firm, nontender, no guarding and not rigid : General: No CVA tenderness and Yes no CVA tenderness Back/Spine/Pelvis: Back: no CVA tenderness, No CVA tenderness and No back tenderness Skin: General skin exam: no rashes or lesions noted and elasticity normal Neuro: General: oriented to time, patient oriented x3, gait normal, tone normal, no meningeal signs and CN's II-XI intact bilaterally Extrem: General: Yes normal to inspection and Yes full ROM Hand/finger images: 1. Positive for tenderness on palpation. Negative for crepitus, deformity, or ecchymosis. Negative for erythema. Motor exam limited due to pain. Neurovascular exam intact Knee images: 1. No tenderness to palpation. No erythema, ecchymosis, or deformity Psych: Appearance: grossly normal, well kempt and not disheveled Course Course Course Narrative: Wrist and knee x-ray ordered Reevaluation(s) Reevaluation #1: Wrist hand and knee x-ray negative for fracture but does shows arthritis. Patient will be discharged with Toradol and muscle relaxer. Patient cannot take steroids due to allergic reaction. Patient informed to follow-up with primary care or orthopedic for MRI to make sure there was no injury of tendon or ligament and wrist. patient placed in blaire wrap Time: 12:10 Medications Administered Discontinued Medications Generic Name Dose Route Start Last Admin Trade Name Freq PRN Reason Stop Dose Admin Acetaminophen 650 mg 04/17/22 21:33 04/17/22 21:35 Acetaminophen 325 Mg Tablet PO 04/17/22 21:34 650 mg ONCE ONE Administration Ketorolac Tromethamine 30 mg 04/17/22 23:32 04/17/22 23:57 Ketorolac Tromethamine 30 Mg/Ml Vial IM 04/17/22 23:33 30 mg ONCE ONE Administration MDM - Extremity (Nontraumatic) MDM Narrative Medical decision making narrative: Wrist pain Discharge Plan Discharge Clinical Impression: Right wrist sprain, Arthritis of wrist, right Patient Disposition: Home, Self-Care Instructions: Wrist Injury (ED), Osteoarthritis (ED), Wrist Sprain (ED) Additional Instructions: X-rays negative for fracture. You need to follow-up with primary care ortho for MRI to make sure there is no tendon or ligament injury and wrist. He will be discharged with pain medication and muscle relaxer. Return to the ED immediately for any bluish black discoloration, numbness, tingling, swelling, headache, dizziness, nausea, vomiting, chest pain abdominal pain shortness of breath, rectal bleeding, vomiting blood, bloody urine, or any other concerning symptoms. Patient received 30 mg IM Toradol Prescriptions: New ketorolac 10 mg tablet 10 mg PO QID PRN (Reason: pain) 5 Days Qty: 20 0RF cyclobenzaprine 10 mg tablet 10 mg PO BEDTIME PRN (Reason: muscle spasm) 7 Days Qty: 7 0RF No Action nystatin 100,000 unit/gram cream 1 appl topical BID Qty: 30 3RF cetirizine 10 mg tablet 10 mg PO DAILY PRN (Reason: allergies) Referrals: [facility] [Provider Group] (Wrist sprain. Will need MRI) Jt Mancera MD [Primary Care Provider] - (Wrist sprain. May need MRI) Interventions: ED Discharge Assessment Last Done: 04/18/22 00:24 Discharge Date/Time: 04/18/22 00:32 Print Language: Gabonese
--- NOTE | 2022-04-18 00:29 | PC.NURSE ---
Discharge instructions given and explained to pt. Pt ambulates safely, steady gait. All questions were answered. No respiratory distress.
== END 2022-04-18 00:32 | disposition home or self-care (01) ==
PROVIDERS: Emergency Provider Internal Medicine; PCP Internal Medicine
DX: S63.501A Unspecified sprain of right wrist, initial encounter (principal); M19.031 Primary osteoarthritis, right wrist; M25.561 Pain in right knee; W01.0XXA Fall on same level from slipping, tripping and stumbling without subsequent striking against object, initial encounter; Y93.9 Activity, unspecified; Y92.9 Unspecified place or not applicable; Y99.9 Unspecified external cause status
CPT/HCPCS: 73110; 73130; 73560; 96372; 99284; J1885

== ENCOUNTER 2022-06-08 12:59 | Outpatient (REF) | payer OTHER, SELFPAY ==
--- NOTE | ~2022-06-08 | MM_ITS ---
EXAMINATION: MM DIAGNOSTIC DIGITAL BREAST TOMOSYNTHESIS, BILATERAL CLINICAL INFORMATION: Yearly screening right breast mammography with 6 month followup left breast mammography for calcifications. COMPARISON: Mammography: 10/06/2021 and studies dating back to 08/24/2015. TECHNIQUE: Digital breast tomosynthesis is performed in both the craniocaudal and mediolateral oblique views along with computer-aided detection (CAD). Synthesized 2D images are generated from the tomosynthesis. Additional spot magnification views of the left breast in craniocaudal and 90-degree mediolateral views performed. FINDINGS: The breasts are heterogeneously dense, which may obscure small masses (ACR BI-RADS breast composition category C). There is a stable parenchymal pattern of the right breast with no new more suspicious grouping of microcalcifications or abnormal dominant mass appreciated. Left breast study demonstrates a slight increase in number of a few calcifications within the linear grouping about the deep inferior aspect at approximately 6 o'clock. Stereotactic core biopsy is recommended. Results are discussed with the patient at time of visit. Above recommendation was called to referring provider's office by breast center patient collections assistant speaking to Nela. MM/MM tomosynthesis diagnostic BI IMPRESSION: Slight increase in number of calcifications deep left breast for which stereotactic core biopsy is recommended. ASSESSMENT: BI-RADS 4: Suspicious (subcategory 4A: Low suspicion for malignancy). RECOMMENDATION: Stereotactic core biopsy left breast. This patient's information was entered into a reminder system with a target due date for their next mammogram.
== END 2022-06-08 13:00 | disposition home or self-care (01) ==
LOC: HO.MAMMO 12:59
PROVIDERS: PCP Internal Medicine; Visit Provider Internal Medicine
DX: R92.1 Mammographic calcification found on diagnostic imaging of breast (principal)
CPT/HCPCS: 77062; 77066

== ENCOUNTER → 2022-06-09 15:36 | Outpatient (BNVA) | payer OTHER, SELFPAY | PROVIDERS: PCP Internal Medicine; Visit Provider Surgery | DX: R92.1 Mammographic calcification found on diagnostic imaging of breast (principal) | CPT/HCPCS: 99202 ==

== ENCOUNTER 2022-06-10 07:56 | Outpatient (REF) | payer OTHER, SELFPAY ==
--- NOTE | ~2022-06-10 | MM_ITS ---
EXAMINATION: STEREOTACTIC TOMOSYNTHESIS-GUIDED VACUUM-ASSISTED BREAST BIOPSY, LEFT SPECIMEN RADIOGRAPH, LEFT POST PROCEDURE DIGITAL MAMMOGRAM, LEFT CLINICAL INFORMATION: Indeterminate calcifications deep inferior aspect of the left breast. COMPARISON: June 08, 2022 and studies dating back to August 24, 2015. TECHNIQUE/PROCEDURE: Informed consent was obtained from the patient after discussion of the benefits, risks, and alternatives to biopsy today. Patient appeared to understand. Gave opportunity for questions. Patient signed consent form. BIOPSY TABLE: [employer] Affirm Prone Biopsy System. LESION: Grouped indeterminate calcifications. LOCAL ANESTHESIA: 10 mL 1% lidocaine; 20 mL 1% lidocaine with epinephrine. DERMATOTOMY: Single skin jacob dermatotomy performed. NEEDLE: [employer] Eviva 9-gauge vacuum assisted core biopsy device. APPROACH: caudal cranial. TARGETING: Digital breast tomosynthesis used for targeting. CORES: 14. CLIP: T shaped metallic marking clip. SPECIMEN RADIOGRAPH: Specimen radiograph is taken in separate room using digital mammography. The index calcifications are in the excised cores. POST PROCEDURE UNILATERAL DIGITAL MAMMOGRAM: The post biopsy mammogram is performed in separate room using separate digital mammography equipment from the biopsy procedure. 2 views are obtained. The breasts are heterogeneously dense, which may obscure small masses (breast composition category: c). The clip marker is in position. The calcifications are markedly decreased at the biopsy site. No gross hematoma. The patient tolerated the procedure well. No immediate complications. Home instructions reviewed with the patient. Final pathology results are pending. MM/MM stereotactic biopsy LT IMPRESSION: 1. Digital tomosynthesis-guided core biopsy left breast with clip placement. 2. Specimen radiograph taken and post procedure mammogram. There is satisfactory positioning of the biopsy clip. 3. Final pathology results pending. An addendum report will be issued.
[2022-06-10] MEDS: Lidocaine HCl 1 % 20 ML VIAL 9 ML SUBCUT (09:13)
[2022-06-10] MEDS: Sodium Bicarbonate 8.4% 50 MEQ/50 ML VIAL SUBCUT (09:14)
[2022-06-10] MEDS: Lidocaine HCl 1% PF/Epi 1:200,000 30 ML VIAL 20 ML SUBCUT (09:15)
== END 2022-06-10 07:57 | disposition home or self-care (01) ==
LOC: HO.MAMMO 07:56
PROVIDERS: PCP Internal Medicine; Visit Provider Internal Medicine
DX: R92.1 Mammographic calcification found on diagnostic imaging of breast (principal)
CPT/HCPCS: 19081; 88305; A4648

== ENCOUNTER → 2022-06-15 14:27 | Outpatient (BNVA) | payer OTHER, SELFPAY | PROVIDERS: PCP Internal Medicine; Visit Provider Surgery | DX: R92.1 Mammographic calcification found on diagnostic imaging of breast (principal); Z98.890 Other specified postprocedural states | CPT/HCPCS: 99212 ==

== ENCOUNTER 2023-01-04 10:12 | Outpatient (REF) | payer OTHER, SELFPAY ==
[2023-01-04 10:21] LABS: MANUAL DIFF FLAG NO
[2023-01-04 10:45] LABS: Basophils Absolute Auto 0.1 X10*3/uL (0.0-0.2); Basophils Percent Auto 0.8 % (0-2); Eosinophils Absolute Auto 0.1 X10*3/uL (0.0-0.4); Eosinophils Percent Auto 2.2 % (0-4); Imm Gran Abs Auto 0.01 X10*3/uL (0.00-0.03); Imm Gran Pct Auto 0.2 % (0.0-0.4); Lymphocytes Absolute Auto 2.7 X10*3/uL (1.2-4.9); Lymphocytes Percent Auto 41.1 % (20-40); Mean Corpuscular HGB Conc 32.6 g/dl (31.0-35.0); Mean Corpuscular Hemoglobin 31.1 pg (27.0-33.0); Mean Corpuscular Volume 95.6 fL (80.0-98.0); Monocytes Absolute Auto 0.5 X10*3/uL (0.1-1.2); Monocytes Percent Auto 7.4 % (2-11); Neutrophils Absolute Auto 3.1 x10*3/uL (2.0-8.3); Neutrophils Percent Auto 48.3 % (45-73); Platelet Count 238 X10*3/uL (160-400); Red Cell Distribution Width 13.2 % (11.0-16.0); White Blood Count 6.5 X10*3/uL (4.8-10.8)
[2023-01-04 11:32] LABS: Alanine Aminotransferase 29 U/L (0-31); Alkaline Phosphatase 109 U/L (39-117); Anion Gap 14 (12-20); Aspartate Amino Transferase 26 U/L (5-31); Bilirubin Total 0.5 mg/dL (0.0-1.0); Blood Urea Nitrogen 10 mg/dL (9-16); Calcium 9.7 mg/dL (8.4-10.2); Carbon Dioxide 28 mmol/L (22-29); Chloride 105 mmol/L (96-108); Cholesterol 163 mg/dL; Estimated Glomerular Filt Rate > 60; Glucose Fasting 98 mg/dL (60-99); HDL Cholesterol 55 mg/dL; LDL Cholesterol Calculated 85 mg/dl; Sodium 143 mmol/L (135-145); Total Protein 7.7 g/dL (6.5-8.0); Triglycerides 115 mg/dL
[2023-01-04 11:49] LABS: Thyroid Stimulating Hormone 1.35 uIU/mL (0.32-4.0)
== END 2023-01-04 10:13 | disposition home or self-care (01) ==
LOC: HO.LAB 10:12
PROVIDERS: PCP Internal Medicine; Visit Provider Internal Medicine
DX: E78.5 Hyperlipidemia, unspecified (principal); D64.9 Anemia, unspecified; N28.9 Disorder of kidney and ureter, unspecified; E03.9 Hypothyroidism, unspecified
CPT/HCPCS: 36415; 80053; 80061; 84443; 85025

== ENCOUNTER 2023-01-04 11:25 | Outpatient (AMB) | payer OTHER, SELFPAY ==
--- NOTE | 2023-01-04 11:27 | MHC.PC.OV ---
Vital Signs 01/04/23 11:37 Height 5 ft 3 in Weight 202 lb 2 oz BMI 35.8 BP 120/76 Blood Pressure Location Rt brachial Position Sitting Pulse 86 Pulse Source Pulse Oximeter Pulse Oximetry (%) 95 Oxygen Delivery Method Room Air Intake Visit Reasons: 4 month f/u Intake Note: Patient is here to follow up on HTN, Hyperlipidemia. Complaint of back pain. Pasta Press Operator Required: No Recruiter Specialist: Not Required per policy Accompanied by: Self / Same As Patient Allergies prednisone [PREDNISONE] Allergy (Intermediate, Verified 01/04/23 11:37) anxiety doxycycline [DOXYCYCLINE] Allergy (Unknown, Verified 01/04/23 11:37) NAUSEA & VOMITING, vomiting Medication List - Last Reconciled 01/04/23 by Jt Mancera MD atorvastatin 10 mg PO DAILY cetirizine 10 mg PO DAILY PRN ketorolac 10 mg PO QID PRN 5 days Tobacco use date assessed: 01/04/23 Fall risk assessment: 1 Fall in past year Last assessed Fall Risk: 01/04/23 Dental Screening Dental Screen Date: 01/04/23 Did you have a dental visit in the last 12 months?: Yes Did you have a dental problem in the last 6 months where you did not have access to dental care?: No Was dental information given to patient?: Patient has dentist HPI 4 month f/u HPI Details hyperlipidemia on rx; doing well; compliant [facility] Medical History Acute sinusitis Breast calcification, left Hyperlipidemia Hypertension Obesity Post-menopausal Screening for breast cancer Screening for diabetes mellitus Surgical History (Updated 01/04/23 @ 11:42 by GERMANIA Warner) History of cholecystectomy History of hip surgery History of tooth extraction Family History Father Cerebral aneurysm Mother Stroke Renal failure Maternal Grandmother Glaucoma Brother Diabetes Social History Housing: Apartment Alcohol intake: never Patient Tobacco Use Status: Former Tobacco user Tobacco use type: Cigarette e-Cigarette/Vaping Use: Never Used Second Hand Smoke Exposure: No service: No Current occupational status: retired Cognitive needs: No Hearing needs: No Vision needs: No Questionnaire PHQ-9 Over the last 2 weeks, how often have you been bothered by any of the following problems? Depression Screening Interpretation: Negative Source: Developed by Drs. Tae Lycnh, Kristyn Catalan, Mihai Kaur and colleagues, with an educational jessica from [employer]. Thrive Questionnaire Date Thrive assessed: 08/05/21 KATIA-7 AMB Questionnaire KATIA-7 Date KATIA - 7 assessed: 08/05/21 Source: Developed by Drs. Tae Lynch, Kristyn Catalan, Mihai Kaur and colleagues, with an educational jessica from [employer]. Review of Systems Const Denies chills, Denies headache(s) and Denies weight loss ENT Denies headache(s) Card Denies chest pain, Denies syncope, Denies irregular heart rhythm and Denies dyspnea Resp Denies chest congestion, Denies cough and Denies dyspnea GI Denies abdominal pain, Denies change in stool character, Denies nausea and Denies vomiting Musc Denies deformity and Denies joint swelling Neuro Denies syncope and Denies headache(s) Physical exam (Primary Care) Vital Signs: Last Vital Signs Pulse 86 01/04/23 11:37 BP 120/76 01/04/23 11:37 Pulse Ox 95 01/04/23 11:37 Oxygen Delivery Method Room Air 01/04/23 11:37 BMI result Body Mass Index 35.8 Tobacco/Smoking Status: Tobacco use Status Tobacco use date assessed 01/04/23 01/04/23 11:44 Patient Tobacco Use Status Former Tobacco user 01/04/23 11:28 Tobacco use type Cigarette 01/04/23 11:28 e-Cigarette/Vaping Use Never Used 01/04/23 11:28 Depression Screening Interpretation: Negative Thrive Assessment: Date of Thrive Assessment Date Thrive assessed 08/05/21 01/04/23 11:28 Const General: cooperative, comfortable and no acute distress Resp Effort & Inspection: normal respiratory effort Auscultation: clear to auscultation bilaterally Percussion: percussion normal Cardio Jugular venous distension: no JVD Rate: regular rate Rhythm: regular rhythm Extrem Other: bilat VV with 1+ edema both lower extremities Assessment and Plan Assessment & Plan (1) Hyperlipidemia: Code(s): E78.5 - Hyperlipidemia, unspecified Plan: stable; same rx Orders: Orders Lipid Panel Today E78.5 - Hyperlipidemia, unspecified Medications: Refilled ketorolac 10 mg PO QID PRN 20 tabs 0RF pain 5 days Coding Level of Care Code Est Pt Level 3 (94106) Diagnoses Hyperlipidemia E78.5
[2023-01-04 11:37] VITALS: BP 120/76; PULSE 86; O2SAT 95; BMI 35.8
== END 2023-01-04 11:54 | disposition home or self-care (01) ==
PROVIDERS: PCP Internal Medicine; Visit Provider Internal Medicine
DX: E78.5 Hyperlipidemia, unspecified (principal)
CPT/HCPCS: 99213

== ENCOUNTER 2023-05-31 10:17 | Outpatient (AMB) | payer OTHER, SELFPAY ==
[2023-05-31 10:23] VITALS: BP 158/98; PULSE 70; O2SAT 99; BMI 35.2
--- NOTE | 2023-05-31 10:23 | MHC.PC.OV ---
Vital Signs 05/31/23 10:23 Height 5 ft 3 in Weight 199 lb BMI 35.2 BP 158/98 H Blood Pressure Location Lt brachial Position Sitting Pulse 70 Pulse Source Pulse Oximeter Pulse Oximetry (%) 99 Oxygen Delivery Method Room Air Intake Visit Reasons: 4 month f/u Client Application Support Specialist Required: No Street Department Dispatcher: Not Required per policy Accompanied by: Self / Same As Patient Allergies prednisone [PREDNISONE] Allergy (Intermediate, Verified 05/31/23 10:23) anxiety doxycycline [DOXYCYCLINE] Allergy (Unknown, Verified 05/31/23 10:23) NAUSEA & VOMITING, vomiting Tobacco use date assessed: 01/04/23 Fall risk assessment: No Falls in past year Last assessed Fall Risk: 05/31/23 Dental Screening Dental Screen Date: 05/31/23 Did you have a dental visit in the last 12 months?: Yes Did you have a dental problem in the last 6 months where you did not have access to dental care?: No Was dental information given to patient?: Patient has dentist HPI 4 month f/u HPI Details hyperlip and tapered off rx; doing well; due for labs [facility] Medical History Breast calcification, left Obesity Post-menopausal Screening for breast cancer Screening for diabetes mellitus Acute sinusitis Hyperlipidemia Hypertension Surgical History History of tooth extraction History of hip surgery History of cholecystectomy Family History Father Cerebral aneurysm Mother Stroke Renal failure Maternal Grandmother Glaucoma Brother Diabetes Social History Housing: Apartment Alcohol intake: never Patient Tobacco Use Status: Former Tobacco user Tobacco use type: Cigarette e-Cigarette/Vaping Use: Never Used Second Hand Smoke Exposure: No service: No Current occupational status: retired Cognitive needs: No Hearing needs: No Vision needs: No Questionnaire PHQ-9 Over the last 2 weeks, how often have you been bothered by any of the following problems? 1. Little interest or pleasure in doing things: not at all 2. Feeling down, depressed, or hopeless: not at all 3. Trouble falling or staying asleep, or sleeping too much: not at all 4. Feeling tired or having little energy: not at all 5. Poor appetite or overeating: not at all 6. Feeling bad about yourself - or that you are a failure or have let yourself or your family down: not at all 7. Trouble concentrating on things, such as reading the newspaper or watching television: not at all 8. Moving or speaking so slowly that other people could have noticed. Or the opposite - being so fidgety or restless that you have been moving around a lot more than usual: not at all 9. Thoughts that you would be better off or of hurting yourself in some way: not at all Total score: 0 Depression Screening Interpretation: Negative Depression Screening Done: Yes 22550 - PHQ-9 Billing: Yes Source: Developed by Drs. Tae Lynch, Kristyn Catalan, Mihai Kaur and colleagues, with an educational jessica from [employer] Thrive Questionnaire Date Thrive assessed: 05/31/23 I am a: Patient What is your living situation today?: I have a steady place to live Within the past 12 months, did the food you bought not last and you didn't have the money to get more?: Never true Within the past 12 months, did you worry whether your food would run out before you got money to buy more?: Never true Do you have trouble paying for medicines?: No Do you have trouble getting transportation to medical appointments?: No Do you have trouble paying your heating and electricity bill?: No Do you have trouble taking care of your child, family member or friend?: No Do you have trouble with day-to-day activities such as bathing, preparing meals, shopping, managing finances, etc.?: No Are you currently unemployed and looking for a job?: No Are you interested in more education?: No Please select the resources that you would like help with: None AUDIT C Alcohol Use Questionnaire (AUDIT-C) 1. How often do you have a drink containing alcohol?: Never 3. How often do you have six or more drinks on one occasion?: Never Total Score: 0 Score Reviewed/Action Taken: No KATIA-7 AMB Questionnaire KATIA-7 Date KATIA - 7 assessed: 05/31/23 Feeling nervous, anxious, or on edge: 0 = Not at all Not being able to stop or control worryin = Not at all Worrying too much about different things: 0 = Not at all Trouble relaxin = Not at all Being so restless that it is hard to sit still: 0 = Not at all Becoming easily annoyed or irritable: 0 = Not at all Feeling afraid as if something awful might happen: 0 = Not at all Total KATIA-7 score (0-4 normal; 5-9 mild; 10-14 moderate; 15-21 severe): 0 Source: Developed by Drs. Tae Lynch, Kristyn Catalan, Mihai Kaur and colleagues, with an educational jessica from [employer] KATIA-7 Assessment Billing KATIA-7 Assessment Tool: KATIA-7 Assessment 20081 Review of Systems Const Denies chills, Denies headache(s) and Denies weight loss ENT Denies headache(s) Card Denies chest pain, Denies syncope, Denies irregular heart rhythm and Denies dyspnea Resp Denies chest congestion, Denies cough and Denies dyspnea GI Denies abdominal pain, Denies change in stool character, Denies nausea and Denies vomiting Musc Denies deformity and Denies joint swelling Neuro Denies syncope and Denies headache(s) Physical exam (Primary Care) Vital Signs: Last Vital Signs Pulse 70 05/31/23 10:23 BP 158/98 H 05/31/23 10:23 Pulse Ox 99 05/31/23 10:23 Oxygen Delivery Method Room Air 05/31/23 10:23 BMI result Body Mass Index 35.2 Tobacco/Smoking Status: Tobacco use Status Tobacco use date assessed 01/04/23 05/31/23 10:31 Patient Tobacco Use Status Former Tobacco user 05/31/23 10:31 Tobacco use type Cigarette 05/31/23 10:31 e-Cigarette/Vaping Use Never Used 05/31/23 10:31 PHQ-9: PHQ-9 Score PHQ-9: Total score 0 05/31/23 10:31 Depression Screening Interpretation: Negative Thrive Assessment: Date of Thrive Assessment Date Thrive assessed 05/31/23 05/31/23 10:31 Const General: cooperative, comfortable, no acute distress and alert Neck Neck: Yes no lymphadenopathy Thyroid: Thyroid normal Resp Effort & Inspection: normal respiratory effort Auscultation: clear to auscultation bilaterally Percussion: percussion normal Cardio Jugular venous distension: no JVD Palpation: normal PMI Rate: regular rate Rhythm: regular rhythm Heart sounds: S1 normal heart sound present and S2 normal heart sound present GI Inspection: Yes normal to inspection Palpation (GI): No hepatosplenomegaly present Skin General skin exam: no rashes or lesions noted Extrem General: Yes no clubbing, cyanosis or edema Assessment and Plan Assessment & Plan (1) Hyperlipidemia: Code(s): E78.5 - Hyperlipidemia, unspecified Plan: do labs Orders: Orders Comprehensive Savery. Panel Fast Today N28.9 - Disorder of kidney and ureter, unspecified Thyroid Stimulating Hormone Today E03.9 - Hypothyroidism, unspecified Lipid Panel Today E78.5 - Hyperlipidemia, unspecified Complete Blood Count Auto Diff Today D64.9 - Anemia, unspecified Coding Level of Care Code Est Pt Level 3 (64249) Diagnoses Hyperlipidemia E78.5 Additional Codes KATIA-7 Assessment Billing - KATIA-7 Assessment Tool: KATIA-7 Assessment 36396 ([id number])
== END 2023-05-31 10:40 | disposition home or self-care (01) ==
PROVIDERS: PCP Internal Medicine; Visit Provider Internal Medicine
DX: E78.5 Hyperlipidemia, unspecified (principal)
CPT/HCPCS: 99213

== ENCOUNTER 2023-06-30 12:45 | Outpatient (REF) | payer OTHER, SELFPAY ==
[2023-06-30 13:08] LABS: MANUAL DIFF FLAG NO
[2023-06-30 13:49] LABS: Basophils Percent Auto 0.5 % (0-2); Eosinophils Absolute Auto 0.1 X10*3/uL (0.0-0.4); Eosinophils Percent Auto 1.4 % (0-4); Hematocrit 46.6 % (37.0-47.0); Hemoglobin 15.5 g/dl (12.0-16.0); Imm Gran Abs Auto 0.01 X10*3/uL (0.00-0.03); Imm Gran Pct Auto 0.2 % (0.0-0.4); Lymphocytes Absolute Auto 2.4 X10*3/uL (1.2-4.9); Mean Corpuscular HGB Conc 33.3 g/dl (31.0-35.0); Mean Corpuscular Hemoglobin 30.5 pg (27.0-33.0); Mean Corpuscular Volume 91.7 fL (80.0-98.0); Mean Platelet Volume 9.9 fL (9.4-12.3); Monocytes Absolute Auto 0.5 X10*3/uL (0.1-1.2); Neutrophils Absolute Auto 3.5 x10*3/uL (2.0-8.3); Neutrophils Percent Auto 52.9 % (45-73); Platelet Count 264 X10*3/uL (160-400); Red Blood Count 5.08 X10*6/uL (4.20-5.50); Red Cell Distribution Width 13.1 % (11.0-16.0); White Blood Count 6.6 X10*3/uL (4.8-10.8)
[2023-06-30 15:01] LABS: Alanine Aminotransferase 25 U/L (0-31); Albumin Level 4.2 g/dL (3.5-5.0); Alkaline Phosphatase 112 U/L (39-117); Anion Gap 14 (12-20); Aspartate Amino Transferase 21 U/L (5-31); Bilirubin Total 0.4 mg/dL (0.0-1.0); Blood Urea Nitrogen 11 mg/dL (9-16); Calcium 9.9 mg/dL (8.4-10.2); Carbon Dioxide 28 mmol/L (22-29); Chloride 104 mmol/L (96-108); Cholesterol 216 mg/dL (<200); Estimated Glomerular Filt Rate > 60; Glucose Fasting 98 mg/dL (60-99); HDL Cholesterol 60 mg/dL (>40); LDL Cholesterol Calculated 131 mg/dL (<100); Potassium 4.6 mmol/L (3.3-5.1); Sodium 141 mmol/L (135-145); Total Protein 8.2 g/dL (6.5-8.0); Triglycerides 125 mg/dL (<150)
[2023-06-30 15:07] LABS: Thyroid Stimulating Hormone 1.64 uIU/mL (0.32-4.0)
== END 2023-06-30 12:46 | disposition home or self-care (01) ==
LOC: HO.LAB 12:45
PROVIDERS: PCP Internal Medicine; Visit Provider Internal Medicine
DX: N28.9 Disorder of kidney and ureter, unspecified (principal); D64.9 Anemia, unspecified; E03.9 Hypothyroidism, unspecified; E78.5 Hyperlipidemia, unspecified
CPT/HCPCS: 36415; 80053; 80061; 84443; 85025

== ENCOUNTER 2023-06-30 14:28 | Outpatient (AMB) | payer OTHER, SELFPAY ==
[2023-06-30 14:28] VITALS: BP 140/98; PULSE 94; O2SAT 100; BMI 34.5
--- NOTE | 2023-06-30 14:28 | MHC.PC.OV ---
Vital Signs 06/30/23 14:28 Height 5 ft 3 in Weight 195 lb BMI 34.5 BP 140/98 H Blood Pressure Location Lt brachial Position Sitting Pulse 94 Pulse Source Pulse Oximeter Pulse Oximetry (%) 100 Oxygen Delivery Method Room Air Intake Visit Reasons: Neck Pain/High Blood Pressure Intake Note: pt states high blood pressure with dizziness and numbness [id number] Sales Consultant Required: No Allergies prednisone [PREDNISONE] Allergy (Intermediate, Verified 06/30/23 14:29) anxiety doxycycline [DOXYCYCLINE] Allergy (Unknown, Verified 06/30/23 14:29) NAUSEA & VOMITING, vomiting Medication List - Last Reconciled 07/03/23 by Jt Mancera MD atorvastatin 10 mg PO DAILY [bed rail As directed] cetirizine 10 mg PO DAILY PRN lisinopril 5 mg PO DAILY naproxen (Naprosyn) 500 mg PO BID PRN tramadol 50 mg PO Q8H PRN Tobacco use date assessed: 06/30/23 Fall risk assessment: No Falls in past year Last assessed Fall Risk: 06/30/23 HPI Neck Pain/High Blood Pressure HPI Details neck pain for a week PFSH Medical History Breast calcification, left Obesity Post-menopausal Screening for breast cancer Screening for diabetes mellitus Acute sinusitis Hyperlipidemia Hypertension Surgical History History of tooth extraction History of hip surgery History of cholecystectomy Family History Father Cerebral aneurysm Mother Stroke Renal failure Maternal Grandmother Glaucoma Brother Diabetes Social History Housing: Apartment Alcohol intake: never Patient Tobacco Use Status: Former Tobacco user Tobacco use type: Cigarette e-Cigarette/Vaping Use: Never Used Second Hand Smoke Exposure: No service: No Current occupational status: retired Cognitive needs: No Hearing needs: No Vision needs: No Questionnaire Thrive Questionnaire Date Thrive assessed: 05/31/23 AUDIT C Alcohol Use Questionnaire (AUDIT-C) 1. How often do you have a drink containing alcohol?: Never 3. How often do you have six or more drinks on one occasion?: Never Total Score: 0 Score Reviewed/Action Taken: No KATIA-7 AMB Questionnaire KATIA-7 Date KATIA - 7 assessed: 05/31/23 Source: Developed by Drs. Tae Lynch, Kristyn Catalan, Mihai Kaur and colleagues, with an educational jessica from [employer]. Review of Systems Const Denies chills, Denies headache(s) and Denies weight loss ENT Denies headache(s) Card Denies chest pain, Denies syncope, Denies irregular heart rhythm and Denies dyspnea Resp Denies chest congestion, Denies cough and Denies dyspnea GI Denies abdominal pain, Denies change in stool character, Denies nausea and Denies vomiting Musc Denies deformity and Denies joint swelling Neuro Denies syncope and Denies headache(s) Physical exam (Primary Care) Vital Signs: Last Vital Signs Pulse 94 06/30/23 14:28 BP 140/98 H 06/30/23 14:28 Pulse Ox 100 06/30/23 14:28 Oxygen Delivery Method Room Air 06/30/23 14:28 BMI result Body Mass Index 34.5 Tobacco/Smoking Status: Tobacco use Status Tobacco use date assessed 06/30/23 06/30/23 14:31 Patient Tobacco Use Status Former Tobacco user 06/30/23 14:31 Tobacco use type Cigarette 06/30/23 14:31 e-Cigarette/Vaping Use Never Used 06/30/23 14:31 Thrive Assessment: Date of Thrive Assessment Date Thrive assessed 05/31/23 06/30/23 14:31 Const General: cooperative, comfortable, no acute distress and alert Neck Neck: Yes no lymphadenopathy Thyroid: Thyroid normal Resp Effort & Inspection: normal respiratory effort Auscultation: clear to auscultation bilaterally Percussion: percussion normal Cardio Jugular venous distension: no JVD Palpation: normal PMI Rate: regular rate Rhythm: regular rhythm Heart sounds: S1 normal heart sound present and S2 normal heart sound present GI Inspection: Yes normal to inspection Palpation (GI): No hepatosplenomegaly present Skin General skin exam: no rashes or lesions noted Extrem General: Yes no clubbing, cyanosis or edema Assessment and Plan Assessment & Plan (1) Neck pain: Code(s): M54.2 - Cervicalgia Plan: xr and pt Orders: Orders XR cervical spine 2V 06/30/23 M54.2 - Cervicalgia PT Evaluation and Treatment 06/30/23 M54.2 - Cervicalgia Medications: New tramadol 50 mg PO Q8H PRN 20 tabs 0RF pain lisinopril 5 mg PO DAILY 30 tabs 3RF Coding Level of Care Code Est Pt Level 3 (11526) Diagnoses Neck pain M54.2
== END 2023-06-30 14:50 | disposition home or self-care (01) ==
PROVIDERS: PCP Internal Medicine; Visit Provider Internal Medicine
DX: M54.2 Cervicalgia (principal)
CPT/HCPCS: 99213

== ENCOUNTER 2023-07-03 11:35 | Outpatient (REF) | payer OTHER, SELFPAY ==
--- NOTE | ~2023-07-03 | XR_ITS ---
EXAMINATION: XR CERVICAL SPINE CLINICAL INFORMATION: Neck injury 6 weeks ago, complains of persistent neck pain COMPARISON: None available. TECHNIQUE: 3 views of the cervical spine were obtained. FINDINGS: The visualized cervical vertebrae are intact with normal alignment. Odontoid process is intact with normal C1/C2 lateral masses alignment. Pre-dental interval is normal. Pre vertebral soft tissue is normal in thickness. There is mild decrease in C6-C7 disc height. Sharp anterior C4-C7 syndesmophytes are present. XR/XR cervical spine 2V IMPRESSION: 1. Mild C6-C7 degenerative cervical disc disease and anterior C4-C7 syndesmophytes are seen. 2. No fracture or dislocation of cervical spine is seen.
== END 2023-07-03 11:36 | disposition home or self-care (01) ==
LOC: HO.XRAY 11:35
PROVIDERS: PCP Internal Medicine; Visit Provider Internal Medicine
DX: M54.2 Cervicalgia (principal)
CPT/HCPCS: 72040

== ENCOUNTER 2023-07-12 10:47 | Outpatient (REF) | payer OTHER, SELFPAY ==
--- NOTE | ~2023-07-12 | MM_ITS ---
EXAMINATION: MM SCREENING DIGITAL BREAST TOMOSYNTHESIS, BILATERAL CLINICAL INFORMATION: Screening. Asymptomatic. COMPARISON: Mammography: This study is compared with prior exams dating back to 2019. TECHNIQUE: Digital breast tomosynthesis is performed in both the craniocaudal and mediolateral oblique views along with computer-aided detection (CAD). Synthesized 2D images are generated from the tomosynthesis. FINDINGS: There are scattered areas of fibroglandular density (ACR BI-RADS breast composition Category b). There are no significant masses, abnormal calcifications, or other abnormalities. There is a tissue marker present in the left breast from prior benign percutaneous biopsy. MM/MM tomosynthesis screening BI IMPRESSION: No mammographic evidence of malignancy. ASSESSMENT: BI-RADS BI-RADS 2 - Benign Findings RECOMMENDATION: Routine annual mammography screening. 1 year F/U This examination should not preclude the clinical evaluation of a suspicious palpable abnormality. This patient's information was entered into a reminder system with a target due date for their next mammogram. BI-RADS 2
== END 2023-07-12 10:48 | disposition home or self-care (01) ==
LOC: HO.MAMMO 10:47
PROVIDERS: PCP Internal Medicine; Visit Provider Internal Medicine
DX: Z12.31 Encounter for screening mammogram for malignant neoplasm of breast (principal)
CPT/HCPCS: 77063; 77067

== ENCOUNTER → 2023-07-12 11:15 | Outpatient (BNV) | payer OTHER, SELFPAY | PROVIDERS: PCP Internal Medicine; Visit Provider Radiology Diagnostic Radiology | DX: Z12.31 Encounter for screening mammogram for malignant neoplasm of breast (principal) | CPT/HCPCS: 77063; 77067 ==

== ENCOUNTER 2023-08-30 11:00 | Outpatient (RCR) | payer OTHER, SELFPAY ==
[2023-08-01 14:02] VITALS: BP 173/91; PULSE 77
--- NOTE | 2023-08-02 13:48 | MHC.PT.EP ---
[facility] [place] Office [place] Office [place] Office [address] Elisa Flores [address] [phone] F: [phone] F: [phone] F: [phone] F: [phone] Physical Therapy Plan of Care Date of Evaluation: 08/01/23 Date of Surgery: Diagnosis: Cervicalgia Assessment: Dana is a pleasant 68 yo female presenting to skilled physical therapy evaluation and treatment with c/o neck pain. Pt reports sudden onset of R sided cervical stabbing px beginning in 05/2023. Pt reports turning head toward the R and feeling painful catching along with triggering syncopal episode. Pt saw PCP on 07/03/23 and received cervical x-rays, indicating DDD at C6-7 along with anterior C4-7 syndesmophytes. Pt has the most functional difficulty with sleeping, cervical rotation, prolonged walking, and bending forward. Upon evaluation, pt presents with decreased cervical ROM, radicular s/s, decreased UE strength, and increased tissue restriction. Pt demonstrates postural deficits that are contributing to discomfort and decreased periscapular stability, which is exacerbated throughout functional mobility. Dana would benefit from skilled PT services to address muscular imbalances, provide postural re-education, and increase cervical ROM for improved functional mobility toward PLOF. Pt is recommended to participate in PT 2x/week for 4 weeks. Frequency and Duration: The patient will be seen 2x/week for 4 weeks Short Term Goals: Pt will demonstrate independence with initial HEP through teach-back method, indicating proper compliance to PT Pt will report no radicular s/s inferior to elbow for 1 consecutive week, showing centralization of s/s Pt will be be able to perform 20 consecutive scapular retractions with proper form/activation Jail Goals: Pt will achieve pain-free cervical ROM WNL, allowing for sleeping without interruption Pt will achieve 5/5 B UE strength, necessary for improved functional reaching Pt will improve functional mobility as noted through statistically significant increase in NDI outcome measure Treatment Plan: Modalities to reduce pain, spasms and effusion. Manual therapy to restore motion and function. Therapeutic exercise to improve strength and flexibility. Neuromuscular re-education for posture and balance. Therapeutic activities to return to functional activities of daily living. Electronically signed by: Please sign and return to therapist. Thank you for your referral.
--- NOTE | 2023-08-02 13:52 | MHC.PT.EP ---
[facility] Office [place] Office [place] Office [address] Elisa Flores [address] [phone] F: [phone] F: [phone] F: [phone] F: [phone] Physical Therapy Plan of Care Date of Evaluation: 08/01/23 Date of Surgery: Diagnosis: Cervicalgia Assessment: Dana is a pleasant 68 yo female presenting to skilled physical therapy evaluation and treatment with c/o neck pain. Pt reports sudden onset of R sided cervical stabbing px beginning in 05/2023. Pt reports turning head toward the R and feeling painful catching along with triggering syncopal episode. Pt saw PCP on 07/03/23 and received cervical x-rays, indicating DDD at C6-7 along with anterior C4-7 syndesmophytes. Pt has the most functional difficulty with sleeping, cervical rotation, prolonged walking, and bending forward. Upon evaluation, pt presents with decreased cervical ROM, radicular s/s, decreased UE strength, and increased tissue restriction. Pt demonstrates postural deficits that are contributing to discomfort and decreased periscapular stability, which is exacerbated throughout functional mobility. Dana would benefit from skilled PT services to address muscular imbalances, provide postural re-education, and increase cervical ROM for improved functional mobility toward PLOF. Pt is recommended to participate in PT 2x/week for 4 weeks. Frequency and Duration: The patient will be seen 2x/week for 4 weeks Short Term Goals: Pt will demonstrate independence with initial HEP through teach-back method, indicating proper compliance to PT Pt will report no radicular s/s inferior to elbow for 1 consecutive week, showing centralization of s/s Pt will be be able to perform 20 consecutive scapular retractions with proper form/activation Skilled Nursing Goals: Pt will achieve pain-free cervical ROM WNL, allowing for sleeping without interruption Pt will achieve 5/5 B UE strength, necessary for improved functional reaching Pt will improve functional mobility as noted through statistically significant increase in NDI outcome measure Treatment Plan: Modalities to reduce pain, spasms and effusion. Manual therapy to restore motion and function. Therapeutic exercise to improve strength and flexibility. Neuromuscular re-education for posture and balance. Therapeutic activities to return to functional activities of daily living. Electronically signed by: Susie Farias, PT, DPT Please sign and return to therapist. Thank you for your referral.
--- NOTE | 2023-10-25 15:58 | MHC.PT.DC ---
[facility] [place] Office [place] Office [place] Office [address] Elisa Flores [address] [phone] F: [phone] F: [phone] F: [phone] F: [phone] Physical Therapy Discharge Report Diagnosis: Cervicalgia Date of Surgery: Date of Evaluation: 08/01/23 Date of Discharge: 10/25/23 Treatments to Date: 8 Cancellations to Date: No Shows to Date: Discharge Status: Discharge Summary: Pt was seen for skilled PT from 08/01/23-08/30/23. Her last attended appointment was 09/01/23. She is being D/C from skilled PT as she has not attended or called to reschedule in > 30 days. Pt current level of function unknown at this time Electronically signed by: Susie Farias, PT, DPT Please sign and return to therapist. Thank you for your referral.
== END 2023-10-25 15:58 | disposition home or self-care (01) ==
LOC: HO.PT 11:00
PROVIDERS: PCP Internal Medicine; Visit Provider Internal Medicine
DX: M54.2 Cervicalgia (principal)
CPT/HCPCS: 97110; 97112; 97140; 97162

== ENCOUNTER 2023-10-02 11:31 | Outpatient (AMB) | payer OTHER, SELFPAY ==
[2023-10-02 11:36] VITALS: BP 148/82; PULSE 70; O2SAT 97; BMI 36.3
--- NOTE | 2023-10-02 11:36 | MHC.PC.OV ---
Vital Signs 10/02/23 11:36 Height 5 ft 3 in Weight 205 lb BMI 36.3 BP 148/82 H Blood Pressure Location Lt brachial Position Sitting Pulse 70 Pulse Source Pulse Oximeter Pulse Oximetry (%) 97 Oxygen Delivery Method Room Air Intake Visit Reasons: 4 month f/u Specimen Accessioner: Not Required per policy Accompanied by: Self / Same As Patient Allergies prednisone [PREDNISONE] Allergy (Intermediate, Verified 10/02/23 11:37) anxiety doxycycline [DOXYCYCLINE] Allergy (Unknown, Verified 10/02/23 11:37) NAUSEA & VOMITING, vomiting Medication List - Last Reconciled 10/03/23 by Jt Mancera MD atorvastatin 10 mg PO DAILY [bed rail As directed] cetirizine 10 mg PO DAILY PRN lisinopril 5 mg PO DAILY naproxen (Naprosyn) 500 mg PO BID PRN tramadol 50 mg PO Q8H PRN Tobacco use date assessed: 06/30/23 Fall risk assessment: No Falls in past year Last assessed Fall Risk: 10/02/23 Dental Screening Dental Screen Date: 05/31/23 HPI 4 month f/u HPI Details HTN on Rx; doing well and compliant [facility] Medical History Breast calcification, left Obesity Post-menopausal Screening for breast cancer Screening for diabetes mellitus Acute sinusitis Hyperlipidemia Hypertension Surgical History History of tooth extraction History of hip surgery History of cholecystectomy Family History Father Cerebral aneurysm Mother Stroke Renal failure Maternal Grandmother Glaucoma Brother Diabetes Social History Housing: Apartment Alcohol intake: never Patient Tobacco Use Status: Former Tobacco user Tobacco use type: Cigarette e-Cigarette/Vaping Use: Never Used Second Hand Smoke Exposure: No service: No Current occupational status: retired Cognitive needs: No Hearing needs: No Vision needs: No Questionnaire Thrive Questionnaire Date Thrive assessed: 05/31/23 KATIA-7 AMB Questionnaire KATIA-7 Date KATIA - 7 assessed: 05/31/23 Source: Developed by Drs. Tae Lynch, Kristyn Catalan, Mihai Kaur and colleagues, with an educational jessica from [employer]. Review of Systems Const Denies chills, Denies headache(s) and Denies weight loss ENT Denies headache(s) Card Denies chest pain, Denies syncope, Denies irregular heart rhythm and Denies dyspnea Resp Denies chest congestion, Denies cough and Denies dyspnea GI Denies abdominal pain, Denies change in stool character, Denies nausea and Denies vomiting Musc Denies deformity and Denies joint swelling Neuro Denies syncope and Denies headache(s) Physical exam (Primary Care) Vital Signs: Last Vital Signs Pulse 70 10/02/23 11:36 BP 148/82 H 10/02/23 11:36 Pulse Ox 97 10/02/23 11:36 Oxygen Delivery Method Room Air 10/02/23 11:36 BMI result Body Mass Index 36.3 Tobacco/Smoking Status: Tobacco use Status Tobacco use date assessed 06/30/23 10/02/23 11:41 Patient Tobacco Use Status Former Tobacco user 10/02/23 11:41 Tobacco use type Cigarette 10/02/23 11:41 e-Cigarette/Vaping Use Never Used 10/02/23 11:41 Thrive Assessment: Date of Thrive Assessment Date Thrive assessed 05/31/23 10/02/23 11:41 Const General: cooperative, comfortable, no acute distress and alert Neck Neck: Yes no lymphadenopathy Thyroid: Thyroid normal Resp Effort & Inspection: normal respiratory effort Auscultation: clear to auscultation bilaterally Percussion: percussion normal Cardio Jugular venous distension: no JVD Palpation: normal PMI Rate: regular rate Rhythm: regular rhythm Heart sounds: S1 normal heart sound present and S2 normal heart sound present GI Inspection: Yes normal to inspection Palpation (GI): No hepatosplenomegaly present Skin General skin exam: no rashes or lesions noted Extrem General: Yes no clubbing, cyanosis or edema Assessment and Plan Assessment & Plan (1) Hypertension: Code(s): I10 - Essential (primary) hypertension Plan: stable; same rx Orders: Orders Lipid Panel Today Z13.220 - Encounter for screening for lipoid disorders Coding Level of Care Code Est Pt Level 3 (75958) Diagnoses Hypertension I10
== END 2023-10-02 11:49 | disposition home or self-care (01) ==
PROVIDERS: PCP Internal Medicine; Visit Provider Internal Medicine
DX: I10 Essential (primary) hypertension (principal)
CPT/HCPCS: 99213

== ENCOUNTER 2023-11-06 13:42 | Emergency (ER) | payer OTHER, SELFPAY ==
[2023-11-06 13:45] VITALS: BP 122/78; PULSE 99; O2SAT 95
[2023-11-06 14:12] VITALS: BP 132/84; PULSE 65; RESP 18; TEMP 36.6; O2SAT 97; BMI 34.7
[2023-11-06 14:42] LABS: Glucose, Whole Blood 106 mg/dL (60-115)
--- NOTE | 2023-11-06 14:49 | ED_ITS ---
HPI - General Adult General Chief complaint: General Medical Stated complaint: LOW BS 40 W/AMS,GIVEN ORAL GLUC PER EMS Time Seen by Provider: 11/06/23 14:48 Source: patient and family (daughter) Limitations: no limitations History of Present Illness HPI narrative: 68 years old, past medical history of venous insufficiency, obesity, hypertension, recently started on a diet, presents to the emergency room for an episode of loss of consciousness. History is taken both from the patient and daughter who witnessed the events. According to the daughter the patient was in his car just about to have something to eat when she felt ?a sensation of doom ?and passed out for few minutes. No trauma reported, the daughter called EMS and by the time EMS arrived patient had regain consciousness, EMS checked her blood sugar which was in the 40s and gave her oral glucose with improvement of patient's symptoms. Patient reported over the past few days she had other episodes similar to this 1 last of which was 4 days ago and reports that she had a small breakfast around 5:00 a.m. and nothing else until the event that occurred approximately around 2:00 a.m.. Patient denies use of insulin or other oral diabetic medication. On my arrival in the room patient is not in distress, GCS 15, still reports mild lightheadedness. Denies chest pain, shortness of breath, abdominal pain nausea or vomiting. Denies unilateral weakness, blurry vision or slurred speech. Related Data Previous Rx's ?Medication ?Instructions ?Recorded naproxen 500 mg tablet (Naprosyn) 500 mg PO BID PRN pain #60 tabs 01/06/23 bed rail #1 ea 01/13/23 atorvastatin 10 mg tablet 10 mg PO DAILY #90 tabs 04/05/23 cetirizine 10 mg tablet 10 mg PO DAILY PRN allergies #90 04/05/23 tabs lisinopril 5 mg tablet 5 mg PO DAILY #30 tabs 06/30/23 tramadol 50 mg tablet 50 mg PO Q8H PRN pain #20 tabs 06/30/23 Allergies Allergy/AdvReac Type Severity Reaction Status Date / Time prednisone [PREDNISONE] Allergy Intermediate anxiety Verified 11/06/23 14:13 doxycycline [DOXYCYCLINE] Allergy Unknown NAUSEA & Verified 11/06/23 14:13 VOMITING, vomiting Review of Systems 2 Review of Systems: Yes all other systems are reviewed and are negative PMFSH Past Medical History Medical History Breast calcification, left Obesity Post-menopausal Screening for breast cancer Screening for diabetes mellitus Acute sinusitis Hyperlipidemia Hypertension Surgical History History of tooth extraction History of hip surgery History of cholecystectomy Family History Family History Father Cerebral aneurysm Mother Stroke Renal failure Maternal Grandmother Glaucoma Brother Diabetes Social History Social History Housing: Apartment Alcohol intake: never Patient Tobacco Use Status: Former Tobacco user Tobacco use type: Cigarette Smoked in Last 30 Days: No e-Cigarette/Vaping Use: Never Used Second Hand Smoke Exposure: No Use of substances other than those prescribed or required for medical reasons: Yes Substance Use Type: Marijuana Advance Directives: No Advance Directives Information Provided: Yes Do you have a plan to hurt others: No Plan service: No Current occupational status: retired Cognitive needs: No Hearing needs: No Vision needs: No Physical Exam ED Vital Signs: Vital Signs - 24 hr 11/06/23 14:12 Temperature 97.9 F Pulse Rate 65 Respiratory Rate 18 Blood Pressure 132/84 Pulse Oximetry 97 Oxygen Delivery Method Room Air BMI result Body Mass Index 34.7 General: Alert, Not in Distress Skin: No rash, warm HEENT: Atraumatic, No Exudate or Pharyngeal Erythema Resp: Normal Breath sounds bilaterally Cardio: Regular rate and Rhythm, Normal S1, S2 ABD: Abd soft, non tender, no guarding or rebound. Normal Bowel sounds. : No cva tenderness Neuro: Alert, oriented x4, PERRL Strenght 5/5 on all extremities Sensation is preserved in both lower and upper extremities Index to nose: normal Cranial Nerves II-XII grossly intact No dysarthria, or aphasia No neglet. Visual saunders are normal bilaterally Psych: Cooperative, NO SI Course Reevaluation(s) Reevaluation #1: Patient was able to tolerate p.o., repeated blood sugar is 154, patient reports improvement of her symptoms she was able to ambulate in the emergency room without assistance. Patient has remained hemodynamically stable without signs of cardiac arrhythmia ECG is unremarkable for life-threatening arrhythmias and at this time I think patient's symptoms are related to episodes of hypoglycemia. Return precautions were discussed at bedside with patient and her daughter, at this time escalation of care is none necessary in my opinion. Recommended to follow-up with primary care physician and to have meals closer to each other. Patient okay with plan. Will DC home Time: 15:51 Medical Decision Making Medical Decision Making [facility] Narrative: Presented to the emergency room with episode of LOC, likely secondary to hypoglycemia since symptoms an event has resolved with oral glucose. However in consideration of patient's age will get an EKG to rule out possible cardiogenic syncope. Will give patient p.o. challenge and continue to monitor if blood sugar remains stable Q 1 hour and no other episodes of hypoglycemia or syncope will DC home. Admission/Observation Consideration of admission/observation: Escalation of care including admission/observation considered Lab Data [facility] Lab Attestation statement: I reviewed the patient's lab results. 11/06/23 14:48 11/06/23 14:48 Labs: Lab Results 11/06/23 11/06/23 Range/Units 14:38 14:48 WBC 5.8 (4.8-10.8) X10*3/uL RBC 4.37 (4.20-5.50) X10*6/uL Hgb 13.6 (12.0-16.0) g/dl Hct 40.7 (37.0-47.0) % MCV 93.1 (80.0-98.0) fL MCH 31.1 (27.0-33.0) pg MCHC 33.4 (31.0-35.0) g/dl RDW 13.0 (11.0-16.0) % Plt Count 220 (160-400) X10*3/uL MPV 9.5 (9.4-12.3) fL Immature Gran % (Auto) 0.3 (0.0-0.4) % Neut % (Auto) 59.2 (45-73) % Lymph % (Auto) 31.6 (20-40) % Jewell % (Auto) 7.5 (2-11) % Eos % (Auto) 0.7 (0-4) % Baso % (Auto) 0.7 (0-2) % Lymph # (Auto) 1.8 (1.2-4.9) X10*3/uL Jewell # (Auto) 0.4 (0.1-1.2) X10*3/uL Eos # (Auto) 0.0 (0.0-0.4) X10*3/uL Baso # (Auto) 0.0 (0.0-0.2) X10*3/uL Abs Immat Gran (auto) 0.02 (0.00-0.03) X10*3/uL Absolute Neuts (auto) 3.4 (2.0-8.3) x10*3/uL Absolute Nucleated RBC 0.000 (0.0-0.012) X10*3/uL Nucleated RBC % (auto) 0.0 (0.0-0.2) /100WBC Sodium 138 (135-145) mmol/L Potassium 3.9 (3.3-5.1) mmol/L Chloride 105 (96-108) mmol/L Carbon Dioxide 26 (22-29) mmol/L Anion Gap 11 L (12-20) BUN 10 (9-16) mg/dL Creatinine 0.70 (0.5-1.4) mg/dL Estim Creat Clear Calc 82.5 Estimated GFR > 60 POC Glucose 106 (60-115) mg/dL Random Glucose 98 (60-115) mg/dL Calcium 9.8 (8.4-10.2) mg/dL Magnesium 2.1 (1.6-2.6) mg/dL Total Bilirubin 0.4 (0.0-1.0) mg/dL AST 21 (5-31) U/L ALT 23 (0-31) U/L Alkaline Phosphatase 98 (39-117) U/L Total Protein 7.2 (6.5-8.0) g/dL Albumin 3.9 (3.5-5.0) g/dL Independent Interpretation I performed an independent interpretation of an: EKG (I personally reviewed and interpreted the patient's EKG: Normal sinus rhythm. ) Independent Historian Clinical information obtained from an independent historian. History obtained from or confirmed by: Other (Daughter) Discharge Plan Discharge Clinical Impression: Hypoglycemia Patient Disposition: Home, Self-Care Instructions: Non-diabetic Hypoglycemia (ED) Additional Instructions: You were seen in the emergency room for an episode of hypoglycemia, low blood sugar, this was likely secondary to the fact that you have been eating less over the past few days. We recommend to have meals closer to each other especially if you are eating smaller portions. Return to the emergency room symptoms represents. Follow-up with your primary care physician within a week. Prescriptions: No Action naproxen [Naprosyn] 500 mg tablet 500 mg PO BID PRN (Reason: pain) Qty: 60 0RF (DME) bed rail See Rx Instructions .Route .MEDSUPPLY Qty: 1 0RF Rx Instructions: As directed atorvastatin 10 mg tablet 10 mg PO DAILY Qty: 90 0RF cetirizine 10 mg tablet 10 mg PO DAILY PRN (Reason: allergies) Qty: 90 0RF tramadol 50 mg tablet 50 mg PO Q8H PRN (Reason: pain) Qty: 20 0RF lisinopril 5 mg tablet 5 mg PO DAILY Qty: 30 3RF Print Language: Dominican
[2023-11-06 14:52] LABS: MANUAL DIFF FLAG NO
[2023-11-06 14:55] LABS: Basophils Percent Auto 0.7 % (0-2); Eosinophils Percent Auto 0.7 % (0-4); Hematocrit 40.7 % (37.0-47.0); Hemoglobin 13.6 g/dl (12.0-16.0); Imm Gran Abs Auto 0.02 X10*3/uL (0.00-0.03); Imm Gran Pct Auto 0.3 % (0.0-0.4); Lymphocytes Absolute Auto 1.8 X10*3/uL (1.2-4.9); Lymphocytes Percent Auto 31.6 % (20-40); Mean Corpuscular HGB Conc 33.4 g/dl (31.0-35.0); Mean Corpuscular Hemoglobin 31.1 pg (27.0-33.0); Mean Corpuscular Volume 93.1 fL (80.0-98.0); Mean Platelet Volume 9.5 fL (9.4-12.3); Monocytes Absolute Auto 0.4 X10*3/uL (0.1-1.2); Monocytes Percent Auto 7.5 % (2-11); Neutrophils Absolute Auto 3.4 x10*3/uL (2.0-8.3); Neutrophils Percent Auto 59.2 % (45-73); Platelet Count 220 X10*3/uL (160-400); Red Blood Count 4.37 X10*6/uL (4.20-5.50); White Blood Count 5.8 X10*3/uL (4.8-10.8)
--- NOTE | 2023-11-06 14:59 | ECG_ITS ---
Test Reason : HYPOGLYCEMIC Blood Pressure : / mmHG Vent. Rate : 068 BPM Atrial Rate : 068 BPM P-R Int : 194 ms QRS Dur : 090 ms QT Int : 406 ms P-R-T Axes : 066 -17 013 degrees QTc Int : 431 ms Normal sinus rhythm with sinus arrhythmia Minimal voltage criteria for LVH, may be normal variant ( R in aVL ) Inferior infarct , age undetermined Abnormal ECG When compared with ECG of 08-JUN-2019 08:10, No significant changes seen Referred By: Shiraz Gandhi Electronically Signed By:MASON HUBBARD
[2023-11-06 15:16] LABS: Alanine Aminotransferase 23 U/L (0-31); Albumin Level 3.9 g/dL (3.5-5.0); Alkaline Phosphatase 98 U/L (39-117); Anion Gap 11 (12-20); Aspartate Amino Transferase 21 U/L (5-31); Bilirubin Total 0.4 mg/dL (0.0-1.0); Blood Urea Nitrogen 10 mg/dL (9-16); Calcium 9.8 mg/dL (8.4-10.2); Carbon Dioxide 26 mmol/L (22-29); Chloride 105 mmol/L (96-108); Creatinine Clr Calc Pharmacy 82.5; Estimated Glomerular Filt Rate > 60; Glucose Random 98 mg/dL (60-115); Magnesium 2.1 mg/dL (1.6-2.6); Potassium 3.9 mmol/L (3.3-5.1); Sodium 138 mmol/L (135-145); Total Protein 7.2 g/dL (6.5-8.0)
[2023-11-06 15:54] LABS: Glucose, Whole Blood 154 mg/dL (60-115)
[2023-11-06 15:56] LABS: Appearance Urine Clear; Color Urine Yellow; Glucose Urine UA Negative (Negative); Leukocyte Esterase Urine Trace (Negative); Nitrite Urine Negative (Negative); PH 6.5 (5.0-9.0); Specific Gravity - Urine 1.015 (1.005-1.025); UMIC TRIGGER UACC YES; Urine Blood Negative (Negative); Urine Ketones Trace mg/dL (Negative); Urine Protein Negative (Neg-Trace)
[2023-11-06 15:58] LABS: Bacteria Urine None Seen (None Seen); Hyaline Casts Urine 0-2 /LPF (0-2); RBC Urine 0-2 /HPF (0-2); Squamous Epithelial Cell Urine 0-2 /HPF (0-2); WBC Urine 0-5 /HPF (0-5)
[2023-11-06 17:10] VITALS: BP 130/80; PULSE 70; RESP 18; TEMP 36.6; O2SAT 97
== END 2023-11-06 17:11 | disposition home or self-care (01) ==
PROVIDERS: Physician Assistant Medical; Emergency Provider Student in an Organized Health Care Education/Training Program; PCP Internal Medicine
DX: E16.2 Hypoglycemia, unspecified (principal); I10 Essential (primary) hypertension
CPT/HCPCS: 36415; 80053; 81001; 82947; 83735; 85025; 93005; 99283; 99284

== ENCOUNTER → 2023-11-06 14:59 | Outpatient (BNV) | payer OTHER, SELFPAY | PROVIDERS: Emergency Provider Student in an Organized Health Care Education/Training Program; PCP Internal Medicine; Visit Provider Internal Medicine | DX: R94.31 Abnormal electrocardiogram [ECG] [EKG] (principal); E16.2 Hypoglycemia, unspecified | CPT/HCPCS: 93010 ==

== ENCOUNTER 2024-01-28 15:18 | Emergency (ER) | payer OTHER, SELFPAY ==
--- NOTE | ~2024-01-28 | CT_ITS ---
EXAMINATION: CT HEAD WITHOUT CONTRAST CT FACIAL BONES WITHOUT CONTRAST CT CERVICAL SPINE WITHOUT CONTRAST CLINICAL INFORMATION: Fall. Face trauma. COMPARISON: CT head, maxillofacial bones, and cervical spine from 11/07/2021. TECHNIQUE: Imaging was performed from the skull base to vertex without intravenous administration of contrast. In addition, helical noncontrast CT imaging was acquired through the cervical spine and facial bones and source images were reviewed along with axial reconstructions and sagittal and coronal MPRs. This CT examination was performed using dose optimization techniques as appropriate, variously including the following: *Automated exposure control. *Adjustment of mA and/or kV according to patient size (this includes techniques or standardized protocols for targeted exams where dose is matched to indication/reason for exam; i.e. extremities or head). *Use of iterative reconstruction technique. DLP: 1608 mGy-cm FINDINGS: Head: There is no evidence of acute intracranial hemorrhage or edematous territorial infarction. Whiting-white matter differentiation is preserved. There is no abnormal attenuation within the brain parenchyma. The ventricles are normal in morphology and size. No evidence for obstructive hydrocephalus. No abnormal mass effect or midline shift. No extra-axial fluid collections. Calcific atherosclerotic disease of the intracranial internal carotid and vertebral arteries. No hyperdense vessel sign. Small subgaleal hematoma along the right aspect of the frontal bone, measuring up to 0.3 cm in depth. No associated acute osseous abnormalities. Maxillofacial Bones: Moderately displaced bilateral nasal bone fractures deviated to the left. Moderate rightward nasal septal deviation. Moderate edema/hematoma along the nasal bridge. Mild right periorbital edema/hematoma. No evidence of additional maxillofacial bone fractures. The zygomatic arches remain intact. No evidence of mandibular or maxillary fracture. The mandibular condyles remain well-seated in their respective temporal articular grooves. Normal appearance of the intraconal and extraconal fat. No evidence of traumatic injury to the extraocular musculature or globes. Bilateral lens extractions. Mild mucosal thickening of the paranasal sinuses. The mastoid air cells and middle ear cavities are clear. No layering fluid collections. Periapical lucency associated with the mandibular right central incisor. Cervical Spine: The atlantooccipital and atlantoaxial articulations remain well aligned. Straightening of the normal cervical lordosis. Mild degenerative anterolisthesis of C3 on C4. Otherwise, there is anatomic alignment of the vertebral bodies and posterior elements. Congenital nonunion of the posterior arch of C1. No evidence of acute fracture or subluxation. The vertebral body heights are maintained. Advanced degenerative disc disease at C6-C7. Moderate degenerative disc disease at all additional levels. Disc-osteophyte complex formation from C5-C7. There appears to at least mild spinal canal stenoses at C5-C6 and C6-C7. Facet and uncovertebral joint arthropathy leads to osseous encroachment on the neural foramina from C2-C7. There is no prevertebral soft tissue swelling. The thyroid gland and remaining cervical soft tissues are within normal limits. The lung apices demonstrate no abnormalities. CT/CT cervical spine wo IV con IMPRESSION: 1. No evidence of acute intracranial hemorrhage or edematous territorial infarction. 2. No evidence of acute fracture or traumatic subluxation of the cervical spine. Moderate multilevel degenerative spondyloarthropathy of the cervical spine. Most notably on this limited exam without intrathecal contrast, there appears to at least mild spinal canal stenoses at C5-C6 and C6-C7. 3. Moderately displaced bilateral nasal bone fractures. Moderate rightward nasal septal deviation. 4. Small right frontal scalp hematoma. No associated osseous abnormalities. Electronically signed by: Arthur Ross DO 01/28/2024 04:56 PM EDT
[2024-01-28 15:41] VITALS: BP 186/101; PULSE 71; RESP 16; TEMP 36.8; O2SAT 98; BMI 34.0
--- NOTE | 2024-01-28 15:41 | ED_ITS ---
HPI - Fall General Chief Complaint: Fall Stated Complaint: facial inj s/p fall Time Seen by Provider: 01/28/24 17:04 Source: patient, RN notes reviewed and old records reviewed Mode of arrival: ambulatory History of Present Illness ED Provider: Leslie Matamoros PA-C HPI Narrative: 68-year-old female with a past medical history obesity, HLD, HTN, presenting to the ED complaining of facial pain and headache s/p mechanical trip and fall on uneven curb [employer]. Admits to hitting head and catching self with RUE. Denies LOC or taking anticoagulation. Reports some dizziness initially after incident, and some chest discomfort in triage. Denies neck/back pain, abdominal pain, shortness of breath. Denies symptoms prior to fall. Tetanus up-to-date MD complaint: fall Related Data Previous Rx's ?Medication ?Instructions ?Recorded naproxen 500 mg tablet (Naprosyn) 500 mg PO BID PRN pain #60 tabs 01/06/23 bed rail #1 ea 01/13/23 atorvastatin 10 mg tablet 10 mg PO DAILY #90 tabs 04/05/23 cetirizine 10 mg tablet 10 mg PO DAILY PRN allergies #90 04/05/23 tabs lisinopril 5 mg tablet 5 mg PO DAILY #30 tabs 06/30/23 tramadol 50 mg tablet 50 mg PO Q8H PRN pain #20 tabs 06/30/23 blood-glucose meter (Blood Glucose #1 ea 11/10/23 Monitoring kit) blood sugar diagnostic (FreeStyle #100 ea 11/11/23 Lite Strips) lancets (Accu-Chek Softclix #100 ea 11/11/23 Lancets) amoxicillin 875 mg-potassium 1 tab PO BID 7 days #14 tabs 01/28/24 clavulanate 125 mg tablet bacitracin 500 unit/gram topical 1 appl topical BID #30 grams 01/28/24 ointment Allergies Allergy/AdvReac Type Severity Reaction Status Date / Time prednisone [PREDNISONE] Allergy Intermediate anxiety Verified 01/28/24 15:44 doxycycline [DOXYCYCLINE] Allergy Unknown NAUSEA & Verified 01/28/24 15:44 VOMITING, vomiting Review of Systems 2 Review of Systems: Constitutional: No Fever, No Chills ENT/Mouth: +facial pain, No Ear Pain, No Nasal Congestion, No Sinus Pain, No sore throat, No Rhinorrhea, No Swallowing Difficulty Cardiovascular: No Chest Pain, No SOB Respiratory: No Cough Gastrointestinal: No Nausea, No Vomiting, No Diarrhea, No Constipation, No Abdominal pain Genitourinary: No Urinary Incontinence/retention Musculoskeletal: No joint pain, No Myalgias, No Joint Swelling Skin: + Skin Lesions, No rash Neuro: No Weakness, No Numbness, No Paresthesias, +SHUKLA, +dizziness Yes all other systems are reviewed and are negative Constitutional: Constitutional: Reports as per HPI Neurologic: Denies Abnormal speech present [facility] Past Medical History Attestation statement: The following information was validated with the patient. Source: old records reviewed Medical History Breast calcification, left Obesity Post-menopausal Screening for breast cancer Screening for diabetes mellitus Acute sinusitis Hyperlipidemia Hypertension Surgical History History of tooth extraction History of hip surgery History of cholecystectomy Family History Family History Father Cerebral aneurysm Mother Stroke Renal failure Maternal Grandmother Glaucoma Brother Diabetes Social History Social History Housing: Apartment Alcohol intake: never Patient Tobacco Use Status: Former Tobacco user Tobacco use type: Cigarette e-Cigarette/Vaping Use: Never Used Second Hand Smoke Exposure: No Substance Use Type: Marijuana Advance Directives: Yes Advance Directives Information Provided: No Advance Directives on File: No service: No Current occupational status: retired Cognitive needs: No Hearing needs: No Vision needs: No Physical Exam 2 Vital Signs: Vital Signs: Last Vital Signs Temp 97.9 F 01/28/24 17:55 Pulse 66 01/28/24 17:55 Resp 18 01/28/24 17:55 BP 174/91 H 01/28/24 17:55 Pulse Ox 98 01/28/24 15:41 O2 Del Method Room Air 01/28/24 15:41 BMI result Body Mass Index 34.0 Const: General: cooperative, healthy appearing and no acute distress O rientation/consciousness: patient oriented x3 Limitations: no limitations HEENT: Other: + multiple abrasions noted to right-side of face with periorbital swelling and ecchymosis. Nose with slight leftward deviation. No septal hematoma, no epistaxis. Head: Yes normal to inspection Ears: hearing grossly normal bilaterally General nose exam: no epistaxis Mouth: no drooling Throat: Yes posterior oropharynx normal Eyes: Other: EOMI w/o pain or entrapment General: appearance normal, both eyes and all related structures Pupils: Equal, round and reactive pupils present EOM: EOMs intact bilaterally Neck: Neck: Yes normal visual inspection and Yes no meningeal signs Chest: Chest palpation & inspection: normal inspection of the chest, no crepitus and no tenderness Resp: Effort & Inspection: normal respiratory effort and no respiratory distress Cardio: Rate: regular rate Heart sounds: S1 normal heart sound present and S2 normal heart sound present GI: Inspection: Yes normal to inspection Palpation (GI): Soft to palpation, nontender, no guarding and not rigid Back/Spine/Pelvis: Other: No midline cervical/thoracic/lumbar spinous tenderness/step-off or deformity Skin: Rashes: no rashes Neuro: General: patient oriented x3, tone normal, moves all extremities and no meningeal signs Cranial nerves: Yes CN's II-XII intact bilaterally and Yes Equal, round and reactive pupils present Cognition (Neuro): normal cognition Speech: No Abnormal speech present Gait exam (Neuro): Normal gait present Motor exam (neuro): 5/5 motor strength present throughout Extrem: General: Yes normal to inspection Course Course Course Narrative: This is a Rapid Medical Exam performed in triage by Leslie Matamoros PA-C. Full HPI, ROS and PE to be performed by primary ED provider. 68 yo F w/PMHx HTN, HLD, presenting to the ED c/o facial pain and headache s/p trip and fall on curb [employer]. denies head trauma or LOC. Tetanus UTD. Reports CP while in triage PE: +facial abrasions noted to R periorbital area/forehead. no focal deficits Plan: CT's, EKG, labs -labs reassuring CT head/brain wo IV con/CT facial bones wo IV con/CT cervical spine wo IV con IMPRESSION: 1. No evidence of acute intracranial hemorrhage or edematous territorial infarction. 2. No evidence of acute fracture or traumatic subluxation of the cervical spine. Moderate multilevel degenerative spondyloarthropathy of the cervical spine. Most notably on this limited exam without intrathecal contrast, there appears to at least mild spinal canal stenoses at C5-C6 and C6-C7. 3. Moderately displaced bilateral nasal bone fractures. Moderate rightward nasal septal deviation. 4. Small right frontal scalp hematoma. No associated osseous abnormalities. Patient requesting to be discharged > given food in the waiting room, blood pressure repeated, discussed results > Results discussed with patient including worrisome signs and symptoms and strict return precautions, and when to return to the emergency department. They verbalized understanding and feel safe for discharge at this time. Medical Decision Making Medical Decision Making [facility] Narrative: 68-year-old female with a past medical history obesity, HLD, HTN, presenting to the ED complaining of facial pain and headache s/p mechanical trip and fall on uneven curb [employer]. On exam hypertensive, NAD, nontoxic appearing, right-sided facial abrasions appreciated with + deviated septum. No septal hematoma. Midline spinous tenderness or focal neuro deficits. Concern for fractures vs ICH vs hematoma. No evidence of globe rupture/periorbital or orbital cellulitis. Lower suspicion for ACS or PE Plan: EKG, labs, head/C-spine and facial CT Please refer to course for remaining clinical decision making, interpretation of labs/imaging results, and discussions with consultants and/or family members. Differential Diagnosis Differential Diagnoses: The differential diagnosis associated with the presentation includes As above Admission/Observation Consideration of admission/observation: Escalation of care including admission/observation considered Lab Data [facility] Lab Attestation statement: I reviewed the patient's lab results. 01/28/24 16:03 01/28/24 16:03 Labs: Lab Results 01/28/24 Range/Units 16:03 WBC 7.4 (4.8-10.8) X10*3/uL RBC 4.62 (4.20-5.50) X10*6/uL Hgb 14.6 (12.0-16.0) g/dl Hct 42.7 (37.0-47.0) % MCV 92.4 (80.0-98.0) fL MCH 31.6 (27.0-33.0) pg MCHC 34.2 (31.0-35.0) g/dl RDW 13.2 (11.0-16.0) % Plt Count 250 (160-400) X10*3/uL MPV 9.6 (9.4-12.3) fL Immature Gran % (Auto) 0.4 (0.0-0.4) % Neut % (Auto) 47.2 (45-73) % Lymph % (Auto) 42.2 H (20-40) % Bourbon % (Auto) 7.7 (2-11) % Eos % (Auto) 1.7 (0-4) % Baso % (Auto) 0.8 (0-2) % Lymph # (Auto) 3.1 (1.2-4.9) X10*3/uL Bourbon # (Auto) 0.6 (0.1-1.2) X10*3/uL Eos # (Auto) 0.1 (0.0-0.4) X10*3/uL Baso # (Auto) 0.1 (0.0-0.2) X10*3/uL Abs Immat Gran (auto) 0.03 (0.00-0.03) X10*3/uL Absolute Neuts (auto) 3.5 (2.0-8.3) x10*3/uL Absolute Nucleated RBC 0.000 (0.0-0.012) X10*3/uL Nucleated RBC % (auto) 0.0 (0.0-0.2) /100WBC PT 11.9 (11.1-13.3) SEC INR 1.0 (0.9-1.1) Sodium 141 (135-145) mmol/L Potassium 4.1 (3.3-5.1) mmol/L Chloride 105 (96-108) mmol/L Carbon Dioxide 24 (22-29) mmol/L Anion Gap 16 (12-20) BUN 15 (9-16) mg/dL Creatinine 0.74 (0.5-1.4) mg/dL Estim Creat Clear Calc 77.2 Estimated GFR > 60 Random Glucose 133 H (60-115) mg/dL Calcium 10.8 H D (8.4-10.2) mg/dL Total Bilirubin 0.3 (0.0-1.0) mg/dL Direct Bilirubin 0.1 (0.0-0.5) mg/dL AST 25 (5-31) U/L ALT 26 (0-31) U/L Alkaline Phosphatase 102 (39-117) U/L Troponin I High Sens < 2.7 (<3.5-17.0) ng/L Total Protein 8.1 H (6.5-8.0) g/dL Albumin 4.1 (3.5-5.0) g/dL Independent Interpretation I performed an independent interpretation of an: EKG Radiology Impression Discussion of test interpretation with radiology: I have reviewed the radiologist's reading. External Record Review External record reviewed: Inpatient record, Office record, Outpatient record, Prior outpatient labs, Prior outpatient radiology, Primary care record and Outside ED record Tests considered The following testing was considered but not selected: As above Prescription Management I considered prescription management with: Pain Medication and Antibiotic Discharge Plan Discharge Clinical Impression: Fracture of nasal bone Patient Disposition: Home, Self-Care Instructions: Nasal Fracture (ED) Additional Instructions: You have bilateral nasal bone fractures with nasal septal deviation. You need to follow-up with an Ear Nose Throat specialist, call to make an appointment Augmentin is antibiotic please take as prescribed Apply bacitracin to your facial abrasions Please do not blow your nose, avoid any increased pressure tear face. You also have a scalp hematoma It was normal for you to have headaches, and mild nausea, if you have persistent worsening headache, persistent nausea/vomiting or weakness return to the ED Call your doctor for close follow-up Prescriptions: New amoxicillin-pot clavulanate 875-125 mg tablet 1 tab PO BID 7 Days Qty: 14 0RF bacitracin 500 unit/gram ointment 1 appl topical BID Qty: 30 0RF No Action naproxen [Naprosyn] 500 mg tablet 500 mg PO BID PRN (Reason: pain) Qty: 60 0RF (DME) bed rail See Rx Instructions .Route .MEDSUPPLY Qty: 1 0RF Rx Instructions: As directed atorvastatin 10 mg tablet 10 mg PO DAILY Qty: 90 0RF cetirizine 10 mg tablet 10 mg PO DAILY PRN (Reason: allergies) Qty: 90 0RF (DME) blood-glucose meter [Blood Glucose Monitoring] Kit See Rx Instructions .Route Qty: 1 0RF Rx Instructions: As directed (DME) FreeStyle Lite Strips Strip See Rx Instructions .ROUTE .MEDSUPPLY Qty: 100 1RF Rx Instructions: Once a day (DME) lancets [Accu-Chek Softclix Lancets] Misc See Rx Instructions .ROUTE .MEDSUPPLY Qty: 100 0RF Rx Instructions: As directed tramadol 50 mg tablet 50 mg PO Q8H PRN (Reason: pain) Qty: 20 0RF lisinopril 5 mg tablet 5 mg PO DAILY Qty: 30 3RF Referrals: [facility] [Outside] [facility] [Outside] Interventions: ED Discharge Assessment Last Done: 01/28/24 17:55 Discharge Date/Time: 01/28/24 17:56 Print Language: Czech
--- NOTE | 2024-01-28 15:45 | ECG_ITS ---
Test Reason : FALL/CHEST PAIN Blood Pressure : / mmHG Vent. Rate : 059 BPM Atrial Rate : 059 BPM P-R Int : 182 ms QRS Dur : 096 ms QT Int : 376 ms P-R-T Axes : 051 -16 023 degrees QTc Int : 372 ms Sinus bradycardia with marked sinus arrhythmia Moderate voltage criteria for LVH, may be normal variant ( R in aVL , Navarro product ) Borderline ECG When compared with ECG of 06-NOV-2023 15:05, QT has shortened Referred By: Leslie Matamoros Electronically Signed By:DELIO GOTTI
[2024-01-28 16:06] LABS: MANUAL DIFF FLAG NO
[2024-01-28 16:11] LABS: Basophils Absolute Auto 0.1 X10*3/uL (0.0-0.2); Basophils Percent Auto 0.8 % (0-2); Eosinophils Absolute Auto 0.1 X10*3/uL (0.0-0.4); Eosinophils Percent Auto 1.7 % (0-4); Hematocrit 42.7 % (37.0-47.0); Hemoglobin 14.6 g/dl (12.0-16.0); Imm Gran Abs Auto 0.03 X10*3/uL (0.00-0.03); Imm Gran Pct Auto 0.4 % (0.0-0.4); Lymphocytes Absolute Auto 3.1 X10*3/uL (1.2-4.9); Lymphocytes Percent Auto 42.2 % (20-40); Mean Corpuscular HGB Conc 34.2 g/dl (31.0-35.0); Mean Corpuscular Hemoglobin 31.6 pg (27.0-33.0); Mean Corpuscular Volume 92.4 fL (80.0-98.0); Mean Platelet Volume 9.6 fL (9.4-12.3); Monocytes Absolute Auto 0.6 X10*3/uL (0.1-1.2); Monocytes Percent Auto 7.7 % (2-11); Neutrophils Absolute Auto 3.5 x10*3/uL (2.0-8.3); Neutrophils Percent Auto 47.2 % (45-73); Platelet Count 250 X10*3/uL (160-400); Red Blood Count 4.62 X10*6/uL (4.20-5.50); Red Cell Distribution Width 13.2 % (11.0-16.0); White Blood Count 7.4 X10*3/uL (4.8-10.8)
[2024-01-28 16:20] LABS: Prothrombin Time 11.9 SEC (11.1-13.3)
[2024-01-28 16:26] LABS: Alanine Aminotransferase 26 U/L (0-31); Albumin Level 4.1 g/dL (3.5-5.0); Alkaline Phosphatase 102 U/L (39-117); Anion Gap 16 (12-20); Aspartate Amino Transferase 25 U/L (5-31); Bilirubin Direct 0.1 mg/dL (0.0-0.5); Bilirubin Total 0.3 mg/dL (0.0-1.0); Blood Urea Nitrogen 15 mg/dL (9-16); Calcium 10.8 mg/dL (8.4-10.2); Carbon Dioxide 24 mmol/L (22-29); Chloride 105 mmol/L (96-108); Creatinine Clr Calc Pharmacy 77.2; Estimated Glomerular Filt Rate > 60; Glucose Random 133 mg/dL (60-115); Potassium 4.1 mmol/L (3.3-5.1); Sodium 141 mmol/L (135-145); Total Protein 8.1 g/dL (6.5-8.0)
[2024-01-28 16:37] LABS: Troponin-I High Sensitivity < 2.7 ng/L (<3.5-17.0)
[2024-01-28 17:47] VITALS: BP 174/91
[2024-01-28 17:55] VITALS: BP 174/91; PULSE 66; RESP 18; TEMP 36.6
== END 2024-01-28 17:56 | disposition home or self-care (01) ==
PROVIDERS: Physician Assistant; Emergency Provider Emergency Medicine Emergency Medical Services; PCP Family Medicine
DX: S02.2XXA Fracture of nasal bones, initial encounter for closed fracture (principal); R51.9 Headache, unspecified; R23.3 Spontaneous ecchymoses; R00.1 Bradycardia, unspecified; R07.89 Other chest pain; M54.2 Cervicalgia; I49.8 Other specified cardiac arrhythmias; W01.10XA Fall on same level from slipping, tripping and stumbling with subsequent striking against unspecified object, initial encounter; Y93.89 Activity, other specified; Y92.480 Sidewalk as the place of occurrence of the external cause; Y99.8 Other external cause status; Z79.899 Other long term (current) drug therapy; Z87.891 Personal history of nicotine dependence
CPT/HCPCS: 36415; 70450; 70486; 72125; 80048; 80076; 84484; 85025; 85610; 93005; 99282; 99284

== ENCOUNTER 2024-02-13 09:50 | Outpatient (AMB) | payer OTHER, SELFPAY ==
--- NOTE | 2024-02-13 09:58 | MHC.OFFVIS ---
Vital Signs 02/13/24 10:03 Height 5 ft 3 in Weight 197 lb 1.492 oz BMI 34.9 BP 142/84 H Blood Pressure Location Rt brachial Position Sitting Pulse 70 Pulse Source Pulse Oximeter Intake Visit Reasons: Hypoglycemia Intake Note: Patient present today for Hypoglycemia, referred by PCP. A1c was doen at PCP office 5.8% 01/24/24. Manager Domestic Required: No Accompanied by: Daughter Allergies prednisone [PREDNISONE] Allergy (Intermediate, Verified 02/13/24 10:05) anxiety doxycycline [DOXYCYCLINE] Allergy (Unknown, Verified 02/13/24 10:05) NAUSEA & VOMITING, vomiting HPI Comments Details: This is a 68-year-old female with a past medical history of obesity, hyperlipidemia, prediabetes, hypertension and chronic lower back pain presenting for an endocrine consult for evaluation of hypoglycemia. She is accompanied by her daughter, Caitlyn. The patient is unsure exactly when episodes of hypoglycemia began. She says it has been going on for ?a while. ? Symptoms include shakiness, weakness and a feeling of impending doom. Patient was seen in the emergency department at [facility] on 11/06/2023. She was seen for an episode of loss of consciousness. According to her daughter she was in her car about have something to eat around 1pm. She felt the sensation of impending doom and passed out for about 10 minutes. Her daughter called EMS when she did not regain consciousness. When EMS arrived patient had regained consciousness. Per EMS notes blood sugar checked was in the 40s. They gave her oral glucose with improvement in symptoms. Patient said she had been trying to lose weight. She decreased sugar in her diet, but she said she was still eating a breakfast which was usually some fruit with juice and a sandwich at lunch and broth and a regular dinner like protein with pasta. She started to walk for exercise. She snacks throughout the day on sweets like apple cake. On that morning she reports having breakfast around 7am, and she did not have anything else to eat until she was in the drive-through getting her lunch at 1pm with her daughter. Since then she has been using a glucometer. She did not have it with her last week when she had another episode. She nearly passed out, but she was able to eat some candy bars, and she felt better after about 15 minutes. Patient says her last meal was 2-1/2 hours before this when she ate 2 pieces of pizza and pineapple. She does have readings on her glucometer as low as 31 and 37 from mid December. Patient said she felt very shaky and weak and ate something sugary to correct. Patient is prediabetic with a hemoglobin A1c of 5.8% collected on 01/24/2024. She is not on any antidiabetic medications or insulin. She does not have a history of bariatric surgery. She does not drink alcohol. ROS: Constitutional: No unexplained weight loss, fever, chills, fatigue or night sweats. Eyes: No vision changes Respiratory: No shortness of breath Cardiovascular: No chest pain Gastrointestinal: No anorexia, nausea, vomiting or diarrhea. No abdominal pain or blood in stool. Neurologic: No seizures, headaches or tremors Endocrine: No cold or heat intolerance. No polyuria or polydipsia. Physical exam: Constitutional: Alert, in no distress. Neck: Supple, Full range of motion. No lymphadenopathy. No palpable thyroid masses. Respiratory: Clear to auscultation. Cardiovascular: S1 S2 regular. No murmurs. Gastrointestinal: Abdomen soft, non-tender, non-distended. Normal bowel sounds. No palpable masses. Extremities: Warm and well perfused. No clubbing, cyanosis or edema. Psychiatric: Normal mood and affect [facility] Medical History (Updated 02/13/24 @ 13:16 by LAKESHIA Keyes) Hypoglycemia Breast calcification, left Obesity Post-menopausal Screening for breast cancer Screening for diabetes mellitus Acute sinusitis Hyperlipidemia Hypertension Surgical History History of surgery History of lateral meniscus repair of left knee History of tooth extraction History of hip surgery History of cholecystectomy Family History Father Cerebral aneurysm Mother Stroke Renal failure Maternal Grandmother Glaucoma Brother Diabetes Social History Housing: Apartment Alcohol intake: never Patient Tobacco Use Status: Former Tobacco user Tobacco use type: Cigarette e-Cigarette/Vaping Use: Never Used Second Hand Smoke Exposure: No Substance Use Type: Marijuana service: No Current occupational status: retired Cognitive needs: No Hearing needs: No Vision needs: No Physical Exam Vital Signs: Last Vital Signs Pulse 70 02/13/24 10:03 BP 142/84 H 02/13/24 10:03 BMI result Body Mass Index 34.9 Assessment & Plan Assessment & Plan (1) Hypoglycemia: Code(s): E16.2 - Hypoglycemia, unspecified Category: Medical Plan This case was discussed with Dr. Wilder. The patient has at least 3 documented episodes of severe hypoglycemia and reports ongoing episodes for some time which have not been documented. Differential includes pathologic versus physiologic hypoglycemia. She needs further evaluation specifically to rule out an insulinoma. In order to meet criteria for Whipple's triad she needs a plasma glucose drawn when she is symptomatic. Ordinarily this is done in the hospital setting by provoking hypoglycemia with the patient in a fasting state. We do not have the capabilities to do this at our [facility]. The patient agrees to referral to the [facility] for further evaluation. The risks of untreated hypoglycemia (possible progression to coma and ) and failure to be seen at the [facility] for further evaluation were reviewed in detail with the patient. I asked the patient to contact the office if they do not hear about the referral in the next 2 weeks. I recommended the patient eat every 2-3 hours while awake even if it is a snack or small meal. Treatment of hypoglycemia was reviewed in detail. Written instructions given. Sent glucose tablets to her pharmacy. Given loss of consciousness with hypoglycemia I prescribed Baqsimi which is medically necessary in the event that she has a another severe episode like this. I prescribed a CGM which is medically necessary to alert her to episodes of hypoglycemia. Patient is referred to the dietitian. Patient was put on DexThe [employer] G7 CGM today. She will return in 1-2 weeks to review the data. Orders: Referrals Endocrinology Referral E16.2 - Hypoglycemia, unspecified Electronic Transaction Implementer Nutrition Referral E16.2 - Hypoglycemia, unspecified, R73.03 - Prediabetes Medications: New blood-glucose sensor (Dexcom G7 Sensor device) apply new sensor every 10 days as directed 3 ea 11RF blood-glucose meter,continuous (Dexcom G7 Electrical Continuity Tester) As directed 1 ea 0RF glucagon 3 mg/actuation (Baqsimi) 3 mg (one actuation) into a single nostril; if no response, may repeat in 15 minutes using a new intranasal device 3 mg intranasal ONCE 2 ea 0RF glucose (Dex4 Glucose Quick Dissolve) until symptoms of low blood sugar are controlled 16 grams (4 x 4 gram) PO Q15M PRN 30 tabs 3RF hypoglycemia Patient Instructions: If you experience low blood sugar, treat this by eating a chewable fruit candy like skittles or jelly beans (about 8 pieces), 4 ounces (1/2 cup) of fruit juice (not diet), 1 tablespoon of honey or 4 glucose tablets. If your blood sugar is under 50, take double the amount of one of the above. Recheck your blood sugar in 15 minutes. Coding Level of Care Code New Pt Level 5 (91505) Complex EM visit Add On G2211 Diagnoses Hypoglycemia E16.2 Time Spent (min) 63 Comment Reviewing the chart, direct care, physician consultation and completing documentation
[2024-02-13 10:03] VITALS: BP 142/84; PULSE 70; BMI 34.9
== END 2024-02-13 11:10 | disposition home or self-care (01) ==
PROVIDERS: PCP Family Medicine; Visit Provider Physician Assistant Medical
DX: E16.2 Hypoglycemia, unspecified (principal)

== ENCOUNTER → 2024-02-13 09:50 | Outpatient (BNVA) | payer OTHER, SELFPAY | PROVIDERS: PCP Family Medicine; Visit Provider Physician Assistant Medical | DX: E16.2 Hypoglycemia, unspecified (principal); R73.03 Prediabetes; Z13.1 Encounter for screening for diabetes mellitus; Z71.89 Other specified counseling | CPT/HCPCS: 99202; 99211 ==

== ENCOUNTER 2024-02-13 11:15 | Outpatient (AMB) | payer OTHER, SELFPAY ==
--- NOTE | 2024-02-13 11:34 | MHC.AMDMED ---
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: No Accompanied by: Daughter Allergies prednisone [PREDNISONE] Allergy (Intermediate, Verified 02/13/24 10:05) anxiety doxycycline [DOXYCYCLINE] Allergy (Unknown, Verified 02/13/24 10:05) NAUSEA & VOMITING, vomiting HPI Comprehensive Diabetes Asmnt Most Recent Diabetes Results: Cholesterol 216 mg/dL (<200) H 06/30/23 HDL Cholesterol 60 mg/dL (>40) 06/30/23 Triglycerides 125 mg/dL (<150) 06/30/23 Creatinine 0.74 mg/dL (0.5-1.4) 01/28/24 Blood Urea Nitrogen 15 mg/dL (9-16) 01/28/24 Sodium 141 mmol/L (135-145) 01/28/24 Potassium 4.1 mmol/L (3.3-5.1) 01/28/24 Chloride 105 mmol/L (96-108) 01/28/24 Carbon Dioxide 24 mmol/L (22-29) 01/28/24 Calcium 10.8 mg/dL (8.4-10.2) H 01/28/24 AST 25 U/L (5-31) 01/28/24 ALT 26 U/L (0-31) 01/28/24 Total Protein 8.1 g/dL (6.5-8.0) H 01/28/24 Albumin 4.1 g/dL (3.5-5.0) 01/28/24 [facility] Medical History (Updated 01/29/24 @ 00:00 by Faith Cruz) Breast calcification, left Obesity Post-menopausal Screening for breast cancer Screening for diabetes mellitus Acute sinusitis Hyperlipidemia Hypertension Surgical History History of surgery History of lateral meniscus repair of left knee History of tooth extraction History of hip surgery History of cholecystectomy Family History Father Cerebral aneurysm Mother Stroke Renal failure Maternal Grandmother Glaucoma Brother Diabetes Social History Housing: Apartment Alcohol intake: never Patient Tobacco Use Status: Former Tobacco user Tobacco use type: Cigarette e-Cigarette/Vaping Use: Never Used Second Hand Smoke Exposure: No Substance Use Type: Marijuana service: No Current occupational status: retired Cognitive needs: No Hearing needs: No Vision needs: No Assessment & Plan Assessment & Plan (1) Screening for diabetes mellitus: Code(s): Z13.1 - Encounter for screening for diabetes mellitus Plan: Patient at visit to set up an insert Dexcom G7 Instructed patient sensors water proof you can shower, or swim do not submerge sensor in water for over 30 minutes Is sensor falls off cannot put back in you need to replace sensor, customer service number given to patient for sensor replacement Sensor placed on the Back of Right arm Patient left visit with sensor in warmup Reviewed how to interpret trend arrows Reminded patient that to check finger sticks if symptoms do not match sensor reading. Discussed lag time between finger stick and sensor data.? Instructed patient she should always keep blood glucometer for backup testing if needed Reviewed delay of CGM from fingersticks Reminded pt that if symptoms do not match sensor still needs to check fingersticks. Portions of this note were created using voice recognition software, please excuse any words or phrases that may have been misinterpreted. Patient Instructions: Patient instruction: CGM provides information on blood glucose control throughout the day, including hyperglycemia and hypoglycemia. ? Continue to monitor blood glucose as instructed. Follow nutrition guidelines provided. Report any discomfort promptly to health care provider. ?Stay well-hydrated. You can bathe ,shower, swim and exercise while wearing the glucose sensor. Do not submerge glucose sensor in water for more than 30 minutes. Coding Level of Care Code Est Pt Level 1 (17878) Diagnoses Screening for diabetes mellitus Z13.1
== END 2024-02-13 12:29 | disposition home or self-care (01) ==
PROVIDERS: PCP Family Medicine; Visit Provider Registered Nurse Diabetes Educator
DX: Z13.1 Encounter for screening for diabetes mellitus (principal)

== ENCOUNTER 2024-02-20 10:32 | Outpatient (AMB) | payer OTHER, SELFPAY ==
--- NOTE | 2024-02-20 10:33 | A.OFFVIS_ITS ---
Vital Signs 02/20/24 10:35 Height 5 ft 3 in Weight 196 lb 6.91 oz BMI 34.8 BP 138/86 Blood Pressure Location Rt brachial Position Sitting Pulse 68 Pulse Source Pulse Oximeter Intake Visit Reasons: low blood sugars Intake Note: Patient present today for Hypoglycemia follow up. 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 She is accompanied by her daughter, Caitlyn. Sensor disconnected this morning when she put on her shirt and sweater. Average glucose 110. Lowest 74, highest 154. BG 109 this morning. She has alert going off at <85. She is eating more frequently (every 1-3 hours), and she's actually lost a pound. No glucose <70 since she immediately eats if she gets an alert. Insurance covered Baqsimi for her. She feels reassured that they have it now. She also has glucose tablets. Documented at initial visit: The patient is unsure exactly when episodes of hypoglycemia began. She says it has been going on for ?a while. ? Symptoms include shakiness, weakness and a feeling of impending doom. Patient was seen in the emergency department at [facility] on 11/06/2023. She was seen for an episode of loss of consciousness. According to her daughter she was in her car about have something to eat around 1pm. She felt the sensation of impending doom and passed out for about 10 minutes. Her daughter called EMS when she did not regain consciousness. When EMS arrived patient had regained consciousness. Per EMS notes blood sugar checked was in the 40s. They gave her oral glucose with improvement in symptoms. Patient said she had been trying to lose weight. She decreased sugar in her diet, but she said she was still eating a breakfast which was usually some fruit with juice and a sandwich at lunch and broth and a regular dinner like protein with pasta. She started to walk for exercise. She snacks throughout the day on sweets like apple cake. On that morning she reports having breakfast around 7am, and she did not have anything else to eat until she was in the drive- through getting her lunch at 1pm with her daughter. Since then she has been using a glucometer. She did not have it with her last week when she had another episode. She nearly passed out, but she was able to eat some candy bars, and she felt better after about 15 minutes. Patient says her last meal was 2-1/2 hours before this when she ate 2 pieces of pizza and pineapple. She does have readings on her glucometer as low as 31 and 37 from mid December. Patient said she felt very shaky and weak and ate something sugary to correct. Patient is prediabetic with a hemoglobin A1c of 5.8% collected on 01/24/2024. She is not on any antidiabetic medications or insulin. She does not have a history of bariatric surgery. She does not drink alcohol. ROS: Constitutional: No unexplained weight loss, fever, chills, fatigue or night sweats. Eyes: No vision changes Respiratory: No shortness of breath Cardiovascular: No chest pain Gastrointestinal: No anorexia, nausea, vomiting or diarrhea. No abdominal pain o r blood in stool. Neurologic: No seizures, headaches or tremors Endocrine: No cold or heat intolerance. No polyuria or polydipsia. Physical exam: Constitutional: Alert, in no distress. Neck: Supple, Full range of motion. No lymphadenopathy. No palpable thyroid masses. Respiratory: Clear to auscultation. Cardiovascular: S1 S2 regular. No murmurs. Extremities: Warm and well perfused. No clubbing, cyanosis or edema. Psychiatric: Normal mood and affect [facility] Medical History (Updated 02/13/24 @ 13:16 by LAKESHIA Keyes) Hypoglycemia Breast calcification, left Obesity Post-menopausal Screening for breast cancer Screening for diabetes mellitus Acute sinusitis Hyperlipidemia Hypertension Surgical History History of surgery History of lateral meniscus repair of left knee History of tooth extraction History of hip surgery History of cholecystectomy Family History Father Cerebral aneurysm Mother Stroke Renal failure Maternal Grandmother Glaucoma Brother Diabetes Social History Housing: Apartment Alcohol intake: never Patient Tobacco Use Status: Former Tobacco user Tobacco use type: Cigarette e-Cigarette/Vaping Use: Never Used Second Hand Smoke Exposure: No Substance Use Type: Marijuana service: No Current occupational status: retired Cognitive needs: No Hearing needs: No Vision needs: No Physical Exam Vital Signs: Last Vital Signs Pulse 68 02/20/24 10:35 BP 138/86 02/20/24 10:35 BMI result Body Mass Index 34.8 Assessment & Plan Assessment & Plan (1) Hypoglycemia: Code(s): E16.2 - Hypoglycemia, unspecified Category: Medical Plan This case was was previously discussed with Dr. Wilder. The patient has at least 3 documented episodes of severe hypoglycemia and reports ongoing episodes for some time which have not been documented. Differential includes pathologic versus physiologic hypoglycemia. She needs further evaluation specifically to rule out an insulinoma. In order to meet criteria for Whipple's triad she needs a plasma glucose drawn when she is symptomatic. Ordinarily this is done in the hospital setting by provoking hypoglycemia with the patient in a fasting state. We do not have the capabilities to do this at our [facility]. The patient has been referredl to the [facility] for further evaluation. Continue to eat frequently throughout the day even if a small meal or snack. Treatment of hypoglycemia was reviewed in detail. She has written instructions and glucose tablets and Baqsimi. I prescribed a CGM which is medically necessary to alert her to episodes of hypoglycemia. She understands PA process. I placed a new sensor on the patient today. She has a fingerstick glucometer. Patient was referred to the private branch exchange installer. Follow up in 1 month. Coding Level of Care Code Est Pt Level 4 (06386) Complex EM visit Add On G2211 Diagnoses Hypoglycemia E16.2
[2024-02-20 10:35] VITALS: BP 138/86; PULSE 68; BMI 34.8
== END 2024-02-20 11:23 | disposition home or self-care (01) ==
PROVIDERS: PCP Family Medicine; Visit Provider Physician Assistant Medical
DX: E16.2 Hypoglycemia, unspecified (principal)

== ENCOUNTER → 2024-02-20 10:32 | Outpatient (BNVA) | payer OTHER, SELFPAY | PROVIDERS: PCP Family Medicine; Visit Provider Physician Assistant Medical | DX: E66.9 Obesity, unspecified (principal); E78.5 Hyperlipidemia, unspecified; R73.03 Prediabetes; I10 Essential (primary) hypertension; Z68.34 Body mass index [BMI] 34.0-34.9, adult | CPT/HCPCS: 99212 ==

== ENCOUNTER 2024-02-22 12:15 | Outpatient (AMB) | payer OTHER, SELFPAY ==
--- NOTE | 2024-02-22 12:59 | MHC.AMDMED ---
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 Accompanied by: Self / Same As Patient Allergies prednisone [PREDNISONE] Allergy (Intermediate, Verified 02/20/24 10:36) anxiety doxycycline [DOXYCYCLINE] Allergy (Unknown, Verified 02/20/24 10:36) NAUSEA & VOMITING, vomiting HPI Comprehensive Diabetes Asmnt Most Recent Diabetes Results: Creatinine 0.74 mg/dL (0.5-1.4) 01/28/24 Blood Urea Nitrogen 15 mg/dL (9-16) 01/28/24 Sodium 141 mmol/L (135-145) 01/28/24 Potassium 4.1 mmol/L (3.3-5.1) 01/28/24 Chloride 105 mmol/L (96-108) 01/28/24 Carbon Dioxide 24 mmol/L (22-29) 01/28/24 Calcium 10.8 mg/dL (8.4-10.2) H 01/28/24 AST 25 U/L (5-31) 01/28/24 ALT 26 U/L (0-31) 01/28/24 Total Protein 8.1 g/dL (6.5-8.0) H 01/28/24 Albumin 4.1 g/dL (3.5-5.0) 01/28/24 [facility] Medical History (Updated 02/13/24 @ 13:16 by LAKESHIA Keyes) Hypoglycemia Breast calcification, left Obesity Post-menopausal Screening for breast cancer Screening for diabetes mellitus Acute sinusitis Hyperlipidemia Hypertension Surgical History History of surgery History of lateral meniscus repair of left knee History of tooth extraction History of hip surgery History of cholecystectomy Family History Father Cerebral aneurysm Mother Stroke Renal failure Maternal Grandmother Glaucoma Brother Diabetes Social History Housing: Apartment Alcohol intake: never Patient Tobacco Use Status: Former Tobacco user Tobacco use type: Cigarette e-Cigarette/Vaping Use: Never Used Second Hand Smoke Exposure: No Substance Use Type: Marijuana service: No Current occupational status: retired Cognitive needs: No Hearing needs: No Vision needs: No Assessment & Plan Assessment & Plan (1) Hypoglycemia: Code(s): E16.2 - Hypoglycemia, unspecified Plan: Personal Continuous Glucose Monitor: Patients CGM information reviewed Reviewed patient's sensor data: Hypoglycemia: ? 5% Hyperglycemia:? 0% Time in Range:? 95% Average glucose for the last 2 weeks?104 mg/dL Patient came to office on MondayFebruary 19, for replacement Dexcom G7 sensor, since replacement of sensor she has been having readings of hypoglycemia constantly throughout the day. She has been double checking with fingersticks, which have shown glucose to be in the normal range. Replaced Dexcom G7 glucose sensor at today's visit. Fingersticks range from 89 mg/dL to 154 mg/dL Encourage patient to eat complex carbohydrate snacks and meals, making sure she is adding protein, fiber and Healthy fats to help stabilize glucose levels Patient given carb list with examples of complex carbohydrates at today's visit Patient has appointment with physician's anesthesiologists' assistant on 03/19/2024. Reminded patient that to check finger sticks if symptoms do not match sensor reading. Discussed lag time between finger stick and sensor data.? Patient able to insert sensor independently at home without issue.? Portions of this note were created using voice recognition software, please excuse any words or phrases that may have been misinterpreted. Patient Instructions: Patient will contact [facility] if she needs to be seen again by nurses educator Coding Level of Care Code Est Pt Level 1 (41323) Diagnoses Hypoglycemia E16.2
== END 2024-02-22 13:01 | disposition home or self-care (01) ==
PROVIDERS: PCP Family Medicine; Visit Provider Registered Nurse Diabetes Educator
DX: E16.2 Hypoglycemia, unspecified (principal)

== ENCOUNTER → 2024-02-22 12:15 | Outpatient (BNVA) | payer OTHER, SELFPAY | PROVIDERS: PCP Family Medicine; Visit Provider Registered Nurse Diabetes Educator | DX: E16.2 Hypoglycemia, unspecified (principal) | CPT/HCPCS: 99211 ==

== ENCOUNTER 2024-03-08 13:12 | Outpatient (AMB) | payer OTHER, SELFPAY ==
--- NOTE | 2024-03-08 13:15 | A.OFFVIS_ITS ---
Vital Signs 03/08/24 13:16 Height 5 ft 3 in Weight 191 lb 12.835 oz BMI 34.0 Intake Visit Reasons: hypoglycemia-pt req Intake Note: Patient presents today for a follow-up for HYPOGLYCEMIA: Last Diabetic eye exam was on: DUE Last Podiatry exam was on: Does not see a Health Science Instructor Most recent HbA1c: 5.8%, 03/08/2024 Random Glucose- 99 mg/dL, Today Allergies prednisone [PREDNISONE] Allergy (Intermediate, Verified 02/20/24 10:36) anxiety doxycycline [DOXYCYCLINE] Allergy (Unknown, Verified 02/20/24 10:36) NAUSEA & VOMITING, vomiting HPI Comments Details: This is a 68-year-old female with a past medical history of obesity, hyperlipidemia, prediabetes, hypertension and chronic lower back pain presenting for a follow up appointment for hypoglycemia. She is accompanied by her daughter, Caitlyn. 99% of readings at target. She did not get the prescription for the Dexcom G7 reader and sensors yet from the pharmacy. Patient reports she has had 2 blood glucose readings that were low but none under 50. She met with the educator. She increased her carbohydrate intake, and she feels that she is managing her blood sugar much better. Insurance covered Baqsimi for her. She feels reassured that they have it now. She also has glucose tablets. She has not needed to use either. She went to the emergency department at [facility] on 03/06/2024 for evaluation of right-sided abdominal pain. She had a CT of the abdomen and pelvis with IV contrast which showed no acute abnormalities, diverticulosis without evidence of acute diverticulitis and mild diffuse thickening of the left adrenal gland. The patient says she has had the pain on and off for years that waxes and wanes. Documented at initial visit: The patient is unsure exactly when episodes of hypoglycemia began. She says it has been going on for ?a while. ? Symptoms include shakiness, weakness and a feeling of impending doom. Patient was seen in the emergency department at [facility] on 11/06/2023. She was seen for an episode of loss of consciousness. According to her daughter she was in her car about have something to eat around 1pm. She felt the sensation of impending doom and passed out for about 10 minutes. Her daughter called EMS when she did not regain consciousness. When EMS arrived patient had regained consciousness. Per EMS notes blood sugar checked was in the 40s. They gave her oral glucose with improvement in symptoms. Patient said she had been trying to lose weight. She decreased sugar in her diet, but she said she was still eating a breakfast which was usually some fruit with juice and a sandwich at lunch and broth and a regular dinner like protein with pasta. She started to walk for exercise. She snacks throughout the day on sweets like apple cake. On that morning she reports having breakfast around 7am, and she did not have anything else to eat until she was in the drive- through getting her lunch at 1pm with her daughter. Since then she has been using a glucometer. She did not have it with her last week when she had another episode. She nearly passed out, but she was able to eat some candy bars, and she felt better after about 15 minutes. Patient says her last meal was 2-1/2 hours before this when she ate 2 pieces of pizza and pineapple. She does have readings on her glucometer as low as 31 and 37 from mid December. Patient said she felt very shaky and weak and ate something sugary to correct. Patient is prediabetic with a hemoglobin A1c of 5.8% collected on 01/24/2024. She is not on any antidiabetic medications or insulin. She does not have a history of bariatric surgery. She does not drink alcohol. ROS: Constitutional: No unexplained weight loss, fever, chills, fatigue or night sweats. Eyes: No vision changes Respiratory: No shortness of breath Cardiovascular: No chest pain Gastrointestinal: No anorexia, nausea, vomiting or diarrhea. No abdominal pain today or blood in stool. Neurologic: No seizures, headaches or tremors Endocrine: No cold or heat intolerance. No polyuria or polydipsia. Physical exam: Constitutional: Alert, in no distress. Eyes: Pupils are equal, round and reactive to light. Extraocular muscles intact. Neck: Supple, Full range of motion. No lymphadenopathy. No palpable thyroid masses. Respiratory: Clear to auscultation. Cardiovascular: S1 S2 regular. No murmurs. Gastrointestinal: Abdomen soft, non-tender, non-distended. Normal bowel sounds. No palpable masses. Genitourinary: No costovertebral angle tenderness. Neurologic: No focal neurological deficits. Extremities: Warm and well perfused. No clubbing, cyanosis or edema. Psychiatric: Normal mood and affect [facility] Medical History (Updated 03/08/24 @ 13:51 by LAKESHIA Keyes) Adrenal gland anomaly Hypoglycemia Breast calcification, left Obesity Post-menopausal Screening for breast cancer Screening for diabetes mellitus Acute sinusitis Hyperlipidemia Hypertension Surgical History History of surgery History of lateral meniscus repair of left knee History of tooth extraction History of hip surgery History of cholecystectomy Family History Father Cerebral aneurysm Mother Stroke Renal failure Maternal Grandmother Glaucoma Brother Diabetes Social History Housing: Apartment Alcohol intake: never Patient Tobacco Use Status: Former Tobacco user Tobacco use type: Cigarette e-Cigarette/Vaping Use: Never Used Second Hand Smoke Exposure: No Substance Use Type: Marijuana service: No Current occupational status: retired Cognitive needs: No Hearing needs: No Vision needs: No Physical Exam Vital Signs: BMI result Body Mass Index 34.0 Results AMB Hemoglobin A1c AMB Hemoglobin A1c 5.8 % Last Edit by GERMANIA Bradley on 03/08/24 13:33 Assessment & Plan Assessment & Plan (1) Hypoglycemia: Code(s): E16.2 - Hypoglycemia, unspecified Category: Medical (2) 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 Wilder. The patient has at least 3 documented episodes of severe hypoglycemia and reports ongoing episodes for some time which have not been documented. Differential includes pathologic versus physiologic hypoglycemia. She needs further evaluation specifically to rule out an insulinoma. In order to meet criteria for Whipple's triad she needs a plasma glucose drawn when she is symptomatic. Ordinarily this is done in the hospital setting by provoking hypoglycemia with the patient in a fasting state. We do not have the capabilities to do this at our [facility]. The patient was referred to the [facility] for further evaluation. The referral was erroneously closed out in the EMR. I spoke to the staff about this today, and now the referral will be processed urgently. We discussed her CT scan which showed mild diffuse left adrenal gland thickening. Advised patient that in my role here I manage diabetes so I reviewed this with Dr. Rouse. This is probably an incidental finding, but will require follow up testing. Since patient is already being referred to endo at [place] I updated the referral for evaluation of both hypoglycemia and adrenal gland thickening. Patient will continue to eat frequently throughout the day. She is doing much better since she increased her carbohydrate intake. Treatment of hypoglycemia was reviewed in detail. She has written instructions and glucose tablets and Baqsimi. I prescribed a CGM which is medically necessary to alert her to episodes of hypoglycemia. I contacted her pharmacy. They did not receive a prior authorization. Message sent to prior auths here. She has a fingerstick glucometer. She has an upcoming appointment with the dietitian. She has a follow up scheduled with me at the end of the month, but she may not need this appointment once referral is completed. Orders: Orders AMB Hemoglobin A1c Today Z13.1 - Encounter for screening for diabetes mellitus Coding Level of Care Code Est Pt Level 4 (64437) Complex EM visit Add On G2211 Diagnoses Hypoglycemia E16.2 Adrenal gland anomaly Q89.1
[2024-03-08 13:16] VITALS: BMI 34.0
[2024-03-08 13:26] LABS: Glucose, Whole Blood 99 mg/dL (60-115)
== END 2024-03-08 14:01 | disposition home or self-care (01) ==
PROVIDERS: PCP Family Medicine; Visit Provider Physician Assistant Medical
DX: E16.2 Hypoglycemia, unspecified (principal); Q89.1 Congenital malformations of adrenal gland; Z13.1 Encounter for screening for diabetes mellitus

== ENCOUNTER → 2024-03-08 13:12 | Outpatient (BNVA) | payer OTHER, SELFPAY | PROVIDERS: PCP Family Medicine; Visit Provider Physician Assistant Medical | DX: E16.2 Hypoglycemia, unspecified (principal); E78.5 Hyperlipidemia, unspecified; Q89.1 Congenital malformations of adrenal gland; E66.9 Obesity, unspecified; R73.03 Prediabetes; Z68.34 Body mass index [BMI] 34.0-34.9, adult | CPT/HCPCS: 82947; 83036; 99212 ==

== ENCOUNTER 2024-03-19 10:48 | Outpatient (AMB) | payer OTHER, SELFPAY ==
--- NOTE | 2024-03-19 10:53 | A.OFFVIS_ITS ---
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 She is accompanied by her daughter, Caitlyn. She had to put on a new sensor on 03/15/24 because the other was giving false low readings. 99% of readings at target. She's not had any sugars under 70. She did not get the prescription for the Dexcom G7 reader and sensors yet from the pharmacy. PA was submitted 03/12/24, and response is pending. Referral to [facility] is in process. She met with the educator. She increased her carbohydrate intake, and she feels that she is managing her blood sugar much better. Insurance covered Baqsimi for her. She feels reassured that they have it now. She also has glucose tablets. She has not needed to use either since out last visit. Documented at initial visit: The patient is unsure exactly when episodes of hypoglycemia began. She says it has been going on for ?a while. ? Symptoms include shakiness, weakness and a feeling of impending doom. Patient was seen in the emergency department at [facility] on 11/06/2023. She was seen for an episode of loss of consciousness. According to her daughter she was in her car about have something to eat around 1pm. She felt the sensation of impending doom and passed out for about 10 minutes. Her daughter called EMS when she did not regain consciousness. When EMS arrived patient had regained consciousness. Per EMS notes blood sugar checked was in the 40s. They gave her oral glucose with improvement in symptoms. Patient said she had been trying to lose weight. She decreased sugar in her diet, but she said she was still eating a breakfast which was usually some fruit with juice and a sandwich at lunch and broth and a regular dinner like protein with pasta. She started to walk for exercise. She snacks throughout the day on sweets like apple cake. On that morning she reports having breakfast around 7am, and she did not have anything else to eat until she was in the drive- through getting her lunch at 1pm with her daughter. Since then she has been using a glucometer. She did not have it with her last week when she had another episode. She nearly passed out, but she was able to eat some candy bars, and she felt better after about 15 minutes. Patient says her last meal was 2-1/2 hours before this when she ate 2 pieces of pizza and pineapple. She does have readings on her glucometer as low as 31 and 37 from mid December. Patient said she felt very shaky and weak and ate something sugary to correct. Patient is prediabetic with a hemoglobin A1c of 5.8% collected on 01/24/2024. She is not on any antidiabetic medications or insulin. She does not have a history of bariatric surgery. She does not drink alcohol. ROS: Constitutional: No unexplained weight loss, fever, chills, fatigue or night sweats. Eyes: No vision changes Respiratory: No shortness of breath Cardiovascular: No chest pain Gastrointestinal: No anorexia, nausea, vomiting or diarrhea. No abdominal pain today or blood in stool. Neurologic: No seizures, headaches or tremors Endocrine: No cold or heat intolerance. No polyuria or polydipsia. Physical exam: Constitutional: Alert, in no distress. Respiratory: Clear to auscultation. Cardiovascular: S1 S2 regular. No murmurs. Neurologic: No focal neurological deficits. Extremities: Warm and well perfused. No clubbing, cyanosis or edema. Psychiatric: Normal mood and affect [facility] Medical History Adrenal gland anomaly Hypoglycemia Breast calcification, left Obesity Post-menopausal Screening for breast cancer Screening for diabetes mellitus Acute sinusitis Hyperlipidemia Hypertension Surgical History History of surgery History of lateral meniscus repair of left knee History of tooth extraction History of hip surgery History of cholecystectomy Family History Father Cerebral aneurysm Mother Stroke Renal failure Maternal Grandmother Glaucoma Brother Diabetes Social History Housing: Apartment Alcohol intake: never Patient Tobacco Use Status: Former Tobacco user Tobacco use type: Cigarette e-Cigarette/Vaping Use: Never Used Second Hand Smoke Exposure: No Substance Use Type: Marijuana service: No Current occupational status: retired Cognitive needs: No Hearing needs: No Vision needs: No Physical Exam Vital Signs: Last Vital Signs Pulse 85 03/19/24 10:54 BP 116/78 03/19/24 10:54 BMI result Body Mass Index 34.4 Assessment & Plan Assessment & Plan (1) Hypoglycemia: Code(s): E16.2 - Hypoglycemia, unspecified Category: Medical (2) 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 Wilder. The patient has at least 3 documented episodes of severe hypoglycemia and reports ongoing episodes for some time which have not been documented. Differential includes pathologic versus physiologic hypoglycemia. She needs further evaluation specifically to rule out an insulinoma. In order to meet criteria for Whipple's triad she needs a plasma glucose drawn when she is symptomatic. Ordinarily this is done in the hospital setting by provoking hypoglycemia with the patient in a fasting state. We do not have the capabilities to do this at our [facility]. The patient was referred to the [facility] for further evaluation, and this is in process. We previously discussed her CT scan which showed mild diffuse left adrenal gland thickening which I reviewed this with Dr. Rouse. This is probably an incidental finding, but will require follow up testing. Since patient is already being referred to [facility] I had updated the referral for evaluation of both hypoglycemia and adrenal gland thickening. Patient will continue to eat frequently throughout the day. She is doing much better since she increased her carbohydrate intake. Treatment of hypoglycemia was reviewed in detail. She has written instructions and glucose tablets and Baqsimi. CGM PA response is pending. Given G7 sensor today. She has a fingerstick glucometer. She has an upcoming appointment with the dietitian. Follow up in 6 weeks for hypoglycemia. Coding Level of Care Code Est Pt Level 4 (46919) Complex EM visit Add On G2211 Diagnoses Hypoglycemia E16.2 Adrenal gland anomaly Q89.1
[2024-03-19 10:54] VITALS: BP 116/78; PULSE 85; BMI 34.4
[2024-03-19 11:02] LABS: Glucose, Whole Blood 112 mg/dL (60-115)
== END 2024-03-19 11:17 | disposition home or self-care (01) ==
PROVIDERS: PCP Family Medicine; Visit Provider Physician Assistant Medical
DX: E16.2 Hypoglycemia, unspecified (principal); Q89.1 Congenital malformations of adrenal gland

== ENCOUNTER → 2024-03-19 10:48 | Outpatient (BNVA) | payer OTHER, SELFPAY | PROVIDERS: PCP Family Medicine; Visit Provider Physician Assistant Medical | DX: E03.9 Hypothyroidism, unspecified (principal); E16.2 Hypoglycemia, unspecified; Q89.1 Congenital malformations of adrenal gland | CPT/HCPCS: 82947; 99212 ==

== ENCOUNTER 2024-03-25 10:33 | Outpatient (AMB) | payer OTHER, SELFPAY ==
--- NOTE | 2024-03-25 10:45 | MHC.AMNUTRGE ---
VS Expanded 03/25/24 10:48 03/25/24 10:54 Height 5 ft 3 in 5 ft 3 in Weight 195 lb 15.855 oz 196 lb BMI 34.7 34.7 Intake Visit Reasons: hypoglycemia/CONFIRMED Allergies prednisone [PREDNISONE] Allergy (Intermediate, Verified 03/19/24 10:54) anxiety doxycycline [DOXYCYCLINE] Allergy (Unknown, Verified 03/19/24 10:54) NAUSEA & VOMITING, vomiting Nutrition Presentation Details: Pt presents for MNT for hypoglycemia Reports constantly eating to reduce symptoms of hypoglycemia , tends to have increased intake of pastries and soft foods. BS Monitoring Most Recent Diabetes Results: No Data to Display [employer] Equation Height: 5 ft 3 in Weight: 196 lb Resting Metabolic Rate: 1397.64 Calculated Activity Level: Sedentary Calories Needed to Maintain Weight: 1677.17 Diagnosis Nutrition problem #1: food nutri know defi As related to (etiology) #1: diagnosis As evidenced by (sign/symptom) #1: knowledge deficit of diet [facility] Medical History Adrenal gland anomaly Hypoglycemia Breast calcification, left Obesity Post-menopausal Screening for breast cancer Screening for diabetes mellitus Acute sinusitis Hyperlipidemia Hypertension Surgical History History of surgery History of lateral meniscus repair of left knee History of tooth extraction History of hip surgery History of cholecystectomy Family History Father Cerebral aneurysm Mother Stroke Renal failure Maternal Grandmother Glaucoma Brother Diabetes Social History Housing: Apartment Alcohol intake: never Patient Tobacco Use Status: Former Tobacco user Tobacco use type: Cigarette e-Cigarette/Vaping Use: Never Used Second Hand Smoke Exposure: No Substance Use Type: Marijuana service: No Current occupational status: retired Cognitive needs: No Hearing needs: No Vision needs: No Assessment & Plan Assessment & Plan (1) Hypoglycemia: Code(s): E16.2 - Hypoglycemia, unspecified Category: Medical Plan: Wt: 89 Kg ( 03/21 ) Est kcal needs as per MSJ: 1700 (40% carb, 30% protein/fat) Est fluid needs as per 25-30 ml/d: 2700 Est prot per day as per 1 g/kg bw: 89 Recommend fiber intake : 8-10 g per day and gradually increase to 25-28 g per day for women and 35-38 g for men or as tolerated Recommend sodium intake per day: less than 2000 mg Educated patient on: ( R = reviewed V = verbalizes understanding N/R = needs review N/A = not applicable Food sources of carbohydrate, adequate serving sizes and its role in various health conditions: R Differences between complex carbohydrates a simple carbohydrates, role of fiber in diet: R Lean protein sources of foods: R V NR Differences between types of fats and role in diet (mono on saturated fat fatty acids, saturated fatty acids, trans fats): R V N/R Food sources of sodium in salt and healthy modifications for heart health in kidney health: R V R/V Vitamins and minerals: R V N/R Healthy plate method concept: R V N/R Physical activity: Benefits a precaution: R V N/R Hypoglycemia protocol, relationship of total carb, type of carb and hypoglycemia , adequate treatment: R Patient Instructions: Reduce on total carbohydrates to less than 60 g at meal choosing complex carbs and including lean protein Avoid sugary beverages See list of meal ideas, consisting of 60 g carbs Treat hypoglycemia by having 1 cup of low fat milk Coding Level of Care Code Nutr Indiv Intake (32125) Diagnoses Hypoglycemia E16.2 Time Spent (min) 30
[2024-03-25 10:48] VITALS: BMI 34.7
[2024-04-01 13:05] VITALS: BMI 34.7
== END 2024-03-25 11:21 | disposition home or self-care (01) ==
PROVIDERS: PCP Family Medicine; Visit Provider Dietitian, Registered
DX: E16.2 Hypoglycemia, unspecified (principal)

== ENCOUNTER → 2024-03-25 10:33 | Outpatient (BNVA) | payer OTHER, SELFPAY | PROVIDERS: PCP Family Medicine; Visit Provider Dietitian, Registered | DX: E16.2 Hypoglycemia, unspecified (principal) | CPT/HCPCS: 97802 ==

== ENCOUNTER 2024-04-30 11:40 | Outpatient (AMB) | payer OTHER, SELFPAY ==
[2024-04-30 11:41] VITALS: BP 112/72; PULSE 83; BMI 34.5
--- NOTE | 2024-04-30 11:41 | A.OFFVIS_ITS ---
Vital Signs 04/30/24 11:41 Height 5 ft 3 in Weight 194 lb 10.691 oz BMI 34.5 BP 112/72 Blood Pressure Location Rt brachial Position Sitting Pulse 83 Pulse Source Pulse Oximeter Intake Visit Reasons: hypoglycemia/CONF Intake Note: Patient present today for Hypoglycemia follow up. Paid Search Specialist Required: No Accompanied by: Daughter Allergies prednisone [PREDNISONE] Allergy (Intermediate, Verified 04/30/24 11:43) anxiety doxycycline [DOXYCYCLINE] Allergy (Unknown, Verified 04/30/24 11:43) NAUSEA & VOMITING, vomiting HPI Comments Details: This is a 69-year-old female with a past medical history of obesity, hyperlipidemia, prediabetes, hypertension and chronic lower back pain presenting for a follow up appointment for hypoglycemia. She is accompanied by her daughter, Caitlyn. Reviewed glucometer download. 100% of readings in range. 0% hypoglycemia. Average glucose 105. GMI 5.8%. Insurance covered the [employer] for her. Patient has appointment at [facility] on 05/31/24. Patient reports a few mild episodes of hypoglycemia, BG 65-69, since her last visit which she treated appropriately. She met with the educator and dietitian. She has a prescription for Baqsimi and glucose tablets. Insurance covered both. Documented at initial visit: The patient is unsure exactly when episodes of hypoglycemia began. She says it has been going on for ?a while. ? Symptoms include shakiness, weakness and a feeling of impending doom. Patient was seen in the emergency department at [facility] on 11/06/2023. She was seen for an episode of loss of consciousness. According to her daughter she was in her car about have something to eat around 1pm. She felt the sensation of impending doom and passed out for about 10 minutes. Her daughter called EMS when she did not regain consciousness. When EMS arrived patient had regained consciousness. Per EMS notes blood sugar checked was in the 40s. They gave her oral glucose with improvement in symptoms. Patient said she had been trying to lose weight. She decreased sugar in her diet, but she said she was still eating a breakfast which was usually some fruit with juice and a sandwich at lunch and broth and a regular dinner like protein with pasta. She started to walk for exercise. She snacks throughout the day on sweets like apple cake. On that morning she reports having breakfast around 7am, and she did not have anything else to eat until she was in the drive- through getting her lunch at 1pm with her daughter. Since then she has been using a glucometer. She did not have it with her last week when she had another episode. She nearly passed out, but she was able to eat some candy bars, and she felt better after about 15 minutes. Patient says her last meal was 2-1/2 hours before this when she ate 2 pieces of pizza and pineapple. She does have readings on her glucometer as low as 31 and 37 from mid December. Patient said she felt very shaky and weak and ate something sugary to correct. Patient is prediabetic with a hemoglobin A1c of 5.8% collected on 01/24/2024. She is not on any antidiabetic medications or insulin. She does not have a history of bariatric surgery. She does not drink alcohol. ROS: Constitutional: No unexplained weight loss, fever, chills, fatigue or night sweats. Eyes: No vision changes Respiratory: No shortness of breath Cardiovascular: No chest pain Gastrointestinal: No anorexia, nausea, vomiting or diarrhea. No abdominal pain today or blood in stool. Neurologic: No seizures, headaches or tremors Endocrine: No cold or heat intolerance. No polyuria or polydipsia. Physical exam: Constitutional: Alert, in no distress. Respiratory: Clear to auscultation. Cardiovascular: S1 S2 regular. No murmurs. Neurologic: No focal neurological deficits. Extremities: Warm and well perfused. No clubbing, cyanosis or edema. Psychiatric: Normal mood and affect [facility] Medical History Adrenal gland anomaly Hypoglycemia Breast calcification, left Obesity Post-menopausal Screening for breast cancer Screening for diabetes mellitus Acute sinusitis Hyperlipidemia Hypertension Surgical History History of surgery History of lateral meniscus repair of left knee History of tooth extraction History of hip surgery History of cholecystectomy Family History Father Cerebral aneurysm Mother Stroke Renal failure Maternal Grandmother Glaucoma Brother Diabetes Social History Housing: Apartment Alcohol intake: never Patient Tobacco Use Status: Former Tobacco user Tobacco use type: Cigarette e-Cigarette/Vaping Use: Never Used Second Hand Smoke Exposure: No Substance Use Type: Marijuana service: No Current occupational status: retired Cognitive needs: No Hearing needs: No Vision needs: No Physical Exam Vital Signs: BMI result Body Mass Index 34.5 Assessment & Plan Assessment & Plan (1) Hypoglycemia: Code(s): E16.2 - Hypoglycemia, unspecified Category: Medical Plan This case was was previously discussed with Dr. Wilder. The patient had documented episodes of severe hypoglycemia and reported ongoing episodes for some time which have not been documented. Differential includes pathologic versus physiologic hypoglycemia. She needs further evaluation specifically to rule out an insulinoma, and she has a consult scheduled at the [facility] on 05/31/2024. Patient will continue her current diet plan. She is using the Dexcom G7. She has a fingerstick glucometer. Treatment of hypoglycemia was reviewed in detail. She has written instructions and glucose tablets and Baqsimi. Follow up in 8 weeks for hypoglycemia. Coding Level of Care Code Est Pt Level 4 (26113) Complex EM visit Add On G2211 Diagnoses Hypoglycemia E16.2
== END 2024-04-30 12:09 | disposition home or self-care (01) ==
PROVIDERS: PCP Family Medicine; Visit Provider Physician Assistant Medical
DX: E16.2 Hypoglycemia, unspecified (principal)

== ENCOUNTER → 2024-04-30 11:40 | Outpatient (BNVA) | payer OTHER, SELFPAY | PROVIDERS: PCP Family Medicine; Visit Provider Physician Assistant Medical | DX: E66.9 Obesity, unspecified (principal); E78.5 Hyperlipidemia, unspecified; R73.03 Prediabetes; Z68.34 Body mass index [BMI] 34.0-34.9, adult | CPT/HCPCS: 99212 ==

== ENCOUNTER 2024-06-25 10:30 | Outpatient (AMB) | payer OTHER, SELFPAY ==
--- NOTE | 2024-06-25 10:48 | A.OFFVIS_ITS ---
Vital Signs 06/25/24 10:50 06/25/24 11:09 Height 5 ft 3 in Weight 183 lb 13.848 oz BMI 32.6 BP 138/88 127/72 Blood Pressure Location Rt brachial Position Sitting Pulse 104 H 72 Pulse Source Pulse Oximeter Intake Visit Reasons: hypoglycemia Intake Note: Patient present today for Hypoglycemia follow up. Ampoule Filler And Sealer Required: No Accompanied by: Self / Same As Patient Allergies prednisone [PREDNISONE] Allergy (Intermediate, Verified 06/25/24 10:50) anxiety doxycycline [DOXYCYCLINE] Allergy (Unknown, Verified 06/25/24 10:50) NAUSEA & VOMITING, vomiting HPI Comments Details: This is a 69-year-old female with a past medical history of obesity, hyperlipi demia, prediabetes, hypertension and chronic lower back pain presenting for a follow up appointment for hypoglycemia and prediabetes. Reviewed glucometer download. 100% of readings in range. 0% hypoglycemia. Average glucose 99. GMI 5.7%. Patient had appointment at [facility] on 05/31/24. Notes requested. Patient says they ordered blood tests which she had done there. She denies interval hypoglycemia. She met with the educator and dietitian. She is feeling well and very happy with her weight loss. She wants to lose another 10-20 pounds this year. She is walking 10 flights of stairs per day and putting a lot of effort into her diet. She has a prescription for Baqsimi and glucose tablets. ROS: Constitutional: No unexplained weight loss, fever, chills, fatigue or night sweats. Eyes: No vision changes Respiratory: No shortness of breath Cardiovascular: No chest pain Gastrointestinal: No anorexia, nausea, vomiting or diarrhea. No abdominal pain today or blood in stool. Neurologic: No seizures, headaches or tremors Endocrine: No cold or heat intolerance. No polyuria or polydipsia. Physical exam: Constitutional: Alert, in no distress. Respiratory: Clear to auscultation. Cardiovascular: S1 S2 regular. No murmurs. Neurologic: No focal neurological deficits. Extremities: Warm and well perfused. No clubbing, cyanosis or edema. Psychiatric: Normal mood and affect [facility] Medical History (Updated 06/25/24 @ 11:25 by LAKESHIA Keyes) Prediabetes Adrenal gland anomaly Hypoglycemia Breast calcification, left Obesity Post-menopausal Screening for breast cancer Screening for diabetes mellitus Acute sinusitis Hyperlipidemia Hypertension Surgical History History of surgery History of lateral meniscus repair of left knee History of tooth extraction History of hip surgery History of cholecystectomy Family History Father Cerebral aneurysm Mother Stroke Renal failure Maternal Grandmother Glaucoma Brother Diabetes Social History Housing: Apartment Alcohol intake: never Patient Tobacco Use Status: Former Tobacco user Tobacco use type: Cigarette e-Cigarette/Vaping Use: Never Used Second Hand Smoke Exposure: No Substance Use Type: Marijuana service: No Current occupational status: retired Cognitive needs: No Hearing needs: No Vision needs: No Physical Exam Vital Signs: Last Vital Signs Pulse 72 06/25/24 11:09 BP 138/88 06/25/24 10:50 BMI result Body Mass Index 32.6 Assessment & Plan Assessment & Plan (1) Hypoglycemia: Code(s): E16.2 - Hypoglycemia, unspecified Category: Medical (2) 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 She is doing very well. No recent episodes of hypoglycemia. She is following dietary guidelines. Requested visit note from [facility] (referred for adrenal gland thickening and hypoglycemia). Per patient she was instructed to follow up there as needed. Treatment of hypoglycemia was reviewed in detail. She has written instructions and glucose tablets and Baqsimi. She will follow up in 3 months with me. Coding Level of Care Code Est Pt Level 4 (27113) Complex EM visit Add On G2211 Diagnoses Hypoglycemia E16.2 Adrenal gland anomaly Q89.1 Prediabetes R73.03
[2024-06-25 10:50] VITALS: BP 138/88; PULSE 104; BMI 32.6
[2024-06-25 11:09] VITALS: BP 127/72; PULSE 72
--- OUTSIDE RECORDS SUMMARY | 2024-06-25 11:33 | XMS_ITS | Clinical Summary ---
Author Organization [employer] Address [address] [place] [address] Care Team Providers Care Pipe Tester Name Role Phone Unavailable Primary Care Provider Unavailabl e Allergies Active Allergy Reactions Criticality Noted Date Comments Erythromycin 10/26/2022 Prednisone 10/26/2022 Medications atorvastatin (Lipitor) 10 MG tablet Take 10 mg by mouth in the morning. 10/14/2022 Active cetirizine (ZyrTEC) 10 MG tablet Take 10 mg by mouth if needed each day. 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 Social History Tobacco Use Types Packs/Day Years Used Date Smoking Tobacco: Never Passive Smoke Exposure: Never Smokeless Tobacco: Never Tobacco Cessation:Counseling Given: Yes Alcohol Use Standard Drinks/Week Comments Defer 0 (1 standard drink = 0.6 oz pur e alcohol) Comments Unknown Sex and Gender Information Value Date Recorded Sex Assigned at Female 10/06/2022 4:14 PM EDT Legal Sex Female 4:01 PM EDT Gender Identity Female 10/06/2022 4:14 PM EDT Sexual Orientation Straight 10/06/2022 4: 14 PM EDT Last Filed Vital Signs Vital Sign Reading Time Taken Comments Blood Pressure 156/93 12/05/2022 10:24 AM EDT Pulse 63 12/05/2022 10:24 AM EDT Temperature - - Respiratory Rate - - Oxygen Saturation - - Inhaled Oxygen Concentration - - Weight - - Height - - Body Mass Index - - Plan of Treatment Health Maintenance Due Date Last Done Comments CT Colonography 1956 Colonoscopy 1956 Colorectal Cancer Screening 1956 Dental X-Ray: Bitewings 1956 Depression Screening 1956 FIT DNA/Cologuard 1956 FIT 1956 FOBT 1956 SDOH Screening 1956 Sigmoidoscopy 1956 Alcohol/Substance Use Screening 1968 Hepatitis C Screening 1974 Mammogram 1996 Zoster Vaccines (1 of 2) 2006 DTaP/Tdap/Td Vaccines (2 - T d or Tdap) 11/26/2020 11/26/2010 Pneumococcal Vaccine: 65+ Years (1 of 1 - PCV) 2021 Dental Oral Exam 06/24/2023 12/21/2022 Dental Prophylaxis 06/24/2023 12/21/2022 COVID-19 Vaccine (4 - 2023-2 5 season) 2024 04/17/2021, 08/19/2020, 07/22/2020 Influenza Vaccine (#1) 2024 , 03/27/2019 Tobacco Screening 03/29/2024 03/29/2023 Dental X-Ray: Full Mouth 10/27/2025 10/26/2022 RSV Patients and Patients Aged 60 years or older (1 - 1-dose 75+ series) 2031 HIB Vaccines Aged Out No longer eligi ble based on patient's age to complete this topic HPV Vaccines Aged Out No longer eligi ble based on patient's age to complete this topic Hepatitis A Vaccines Aged Out No long er eligible based on patient's age to complete this topic Hepatitis B Vaccines Aged Out No long er eligible based on patient's age to complete this topic IPV Vaccines Aged Out No longer eligi ble based on patient's age to complete this topic Meningococcal Vaccine Aged Out No mir mansi eligible based on patient's age to complete this topic RSV under 20 months Aged Out No longe r eligible based on patient's age to complete this topic Rotavirus Vaccines Aged Out No longer eligible based on patient's age to complete this topic Procedures Procedure Name Priority Date/Time Associated Diagnosis Comments PROPHYLAXIS - ADULT Routine 12/21/2022 1 1:00 AM EDT COMPREHENSIVE ORAL EVALUATION - NEW OR ESTABLISHED PATIENT Routine 12/21/2022 11:00 AM EDT PANORAMIC RADIOGRAPHIC IMAGE Routine 10/26/2022 11:00 AM EDT Encounter for dental examination from Last 3 Months or Most Recently Relevant to Health Maintenance Insurance [facility]
--- OUTSIDE RECORDS SUMMARY | 2024-06-25 11:33 | XMS_ITS | Data Portability ---
Author Organization [facility] Address [address] [place] [address] Care Team Providers Care Shield Runner Name Role Phone HIM LINH OTHER Assessment Encounter Date Assessment Date Assessment LastModified by Organization Details LastModified Time 11/22/2023 11/22/2023 I provided real -time medical direction via phone for this encounter and was available for additional phone-based assistance as needed. I have reviewed and agree with the Assessment and Plan as documented by the Photographic Intelligence Officer. Patient given the opportunity to ask questions. Our service contacted for an assessment of: Diabetes mellitus As per above, patient with several episodes of hypoglycemia. Can not get in to see PCP however did go to the emergency department and was sent to the PCP. Per renewable energy engineer on the scene, vital signs are stable and blood glucose is 132. Patient unsure of exact diabetes regimen Impression: Diabetes mellitus Plan: Contact PCP for adjustments of medication for above. She states PCP manages diabetes and not endocrinology. Will have Care team follow-up with PCP. [email or web address] Not available 11/22/2023 22:18:19 Plan of Treatment Reminders Order Date Submit Date Provider Last Modified By Organization Details Last Modified Time Details Appointments None record ed. Lab None record ed. Referral None record ed. Procedures None record ed. Surgeries None record ed. Imaging None record ed. Medication Orders None record ed. Patient TargetsNo targets recorded. Patient InstructionsNo instructions recorded. Reason for Referral None Reported. Medical Equipment None Reported. Allergies Allergen ID Allergen Name Allergen Category Reaction Reaction Severity Criticality Documentation Date Start Date Code Code System Note Provider Name and Address Organization Details Recorded Time 4151 prednison e medicatio n Not available Not available Not available 03/26/2024 8640 RxNorm Not Available [facility] 03:47:56 Medications Name Sig Start Date Stop Date Status Note LastModified by Organization Details LastModified Time cetirizine 10 mg tablet TAKE ONE TABLET BY MOUTH EVERY DAY NEEDED FOR ALLERGIES active Not Available Not Available No t Available atorvastatin 10 mg tablet TAKE ONE TABLET BY MOUTH EVERY DAY active Not Available Not Available No t Available FreeStyle Lancets 28 gauge TEST ONCE A DAY active Not Available Not Available No t Available tramadol 50 mg tablet TAKE ONE TABLET BY MOUTH EVERY 8 HOURS NEEDED FOR PAIN active Not Available Not Available No t Available lisinopril 5 mg tablet TAKE ONE TABLET BY MOUTH EVERY DAY active Not Available Not Available No t Available naproxen 500 mg tablet TAKE 1 TABLET BY MOUTH TWO TIMES A DAY NEEDED FOR PAIN active Not Available Not Available No t Available FreeStyle Lite Meter kit USE DIRECTED active Not Available Not Available No t Available FreeStyle Lite Strips TEST ONCE A DAY active Not Available Not Available No t Available Vitals Date Recorded Body weight Body temperature Respiratory rate Heart rate Oxygen saturation Oxygen saturation in Arterial blood by Pulse oximetry Systolic blood pressure Diastolic blood pressure Provider Name and Address Organization Details Last Updated DateTime 4 50993.4 8 g 97.5 [degF] 16 /min 70 /min 98 % 98 % 178 mm[Hg] 104 mm[Hg] Not Available [facility] 22:05:00 Social History None recorded. Functional Status None recorded. Mental Status None recorded. Family History Nothing Reported. Medical History No medical history recorded. Gynecological HistoryNo gynecological history recorded. Obstetrics History GPAL:G 0 P 0 0 0 0 Past Encounters Encounter ID Performer Location Encounter Start Date Encounter Closed Date Diagnosis/Indication Diagnosis SNOMED-CT Code Diagnosis ICD10 Code Diagnosis Note [id number] Cornelia Blanton MD [facility] [address] [place] [phone] 11/22/2023 22:04:56 11/23/2023 09:12:52 Type 2 diabetes mellitus 45983153 E11.9 Health Concerns Section Related Observation LastModified by Organization Detai ls LastModified Time None Recorded Concern Status LastModified by Organization Details LastModified Time None Recorded Advance Directives Directive None Recorded Payers Encounter Date Sequence Insurance Name Policy Number Policy Orozco Covered Member ID Orozco Member ID Guarantor Name 11/22/2023 1 [facility] - DOS ON OR AFTER 2022 - DUAL ELIGIBLE - LONG TERM OPTIONS AND ONE CARE (MEDICARE REPLACEMENT/AD VANTAGE - HMO) Dana Yost [id number] Dana Yost Notes Date Note Type Note Provider Name and Address Organization Details Recorded Time 11/22/2023 text/html HPI: 10:43am ? MBR? s daughter, Caitlyn, contacts [facility] to report MBR ? p assed out a few weeks ago for low blood sugar? , went to the ED and was told to follow up with PCP. PCP cannot see MBR for three weeks and MBR is still weak and they request an in home visit today. This [facility] RN asks to speak with MBR, who comes to the phone. TISHA is a 68 y/o female with a PMH of, but not limited to HLD, HTN, repeat falls, hypothyroidism, OA, and cataracts. TISHA is not diabetic but has a glucose machine to monitor sugars ? b ecause they are low.? Today TISHA is feeling very weak, her blood sugar was 80 this morning, and she has a right sided headache. She denies any other symptoms, such as CP, SOB, palpitations, increased thirst or urination, or pain. MBR would like an in-home visit today. This [facility] RN assures MBR that a referral will be placed on her behalf. She is also advised to call her PCP to requests an earlier appointment. MBR is also advised to call 911 for any new or worsening symptoms. MBR can be reached at [phone]. ................. ................. ................. ................. ................. ................. ................. ................. ..... [facility] Nurse Triage Notes (Amarjit Neal): Comments: Reviewed HPI ................. ................. ................. ................. ................. ................. ................. ................. ..... Photographic Intelligence Officer Note From Dioni Buchanan: Pt co low BS and feeling weak for past two weeks. Pt sts two weeks ago her BS went so low she became unresponsive. Pt was given glucose and came to. Pt has appt with pcp end of November. Pt denies dizziness blurry vision slurred speech cp sob NVD or falls. Baseline vitals assessed, BG assessed 137. Fast exam unremarkable. [facility] contacted and pt advised to continue to monitor sugars, and drink plenty of fluids. [facility] will contact care team. Pt education on signs indicating the ER. Photographic Intelligence Officer Allergies: Prednisone ................. ................. ................. ................. ................. ................. ................. ................. ..... Disposition: Fulfilled Cornelia Blanton MD [address], [place], [phone], [facility] 11/22/2023 22:18:34 OBGyn Episode No OBEpisode recorded.
--- OUTSIDE RECORDS SUMMARY | 2024-06-25 11:33 | XMS_ITS | Clinical Summary ---
Author Organization [facility] [address] [facility] Address [address] [place] [address] Phone Care Team Providers [facility] Security Director Name Role Phone Luis Vazquez MD Primary Care Pr ovider Allergies Active Allergy Reactions Criticality Noted Date Comments Azithromycin 01/24/2024 Doxycycline 01/24/2024 Prednisone 01/24/2024 Medications Medication Sig Dispensed Refills Start Date End Date Status fexofenadine HCl (TRENT ALLERGY ORAL) Take by mouth. Active atorvastatin (LIPITOR) 20 mg tablet Take 1 tablet (20 mg total) by mouth 1 (one) time each day. Active cyclobenzaprine (FLEXERIL) 5 mg tabletIndications:Lavinia brett osteoarthritis involving multiple joints Take 1 tablet (5 mg total) by mouth at bedtime as needed for muscle spasms. 30 tablet 04/17/2024 06/16/2024 Active Problems Problem Noted Date Diagnosed Date Fibromyalgia 04/17/2024 Primary osteoarthritis involving multiple joints 04/17/2024 Generalized anxiety disorder 04/17/2024 Fatty liver 03/20/2024 Atrophic pancreas 03/20/2024 Restless leg syndrome 03/20/2024 Obesity (BMI 30.0-34.9) 03/20/2024 Diverticulosis 03/20/2024 Marijuana use 03/20/2024 Hyperlipidemia 02/07/2024 Prediabetes 02/07/2024 Atherosclerosis 02/07/2024 Overview (03/20/2024): CT head, facial bones, cervical spine 01/28/24 ([facility] [place] [facility] [place] s/p mechanical fall) 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 Primary hypertension 01/24/2024 Encounters Date Type Department Care Team Description 05/20/2024 [facility] Neurodiagnostic [address] [place] [phone] Regina Lundberg MD Epilepsy, unspecified, not intractable, without status epilepticus ([facility]) 05/17/2024 [facility] [address] [place] [phone] Regina Lundberg MD Epilepsy, unspecified, not intractable, without status epilepticus ([facility]) 05/16/2024 [facility] [address] [place] [phone] Regina Lundberg MD Epilepsy, unspecified, not intractable, without status epilepticus ([facility]) 04/18/2024 Telephone Adult Medicine [address] [phone] Geovanna Braxton LPN Fitting for DME (Faxed form from home care delivered) 04/17/2024 12:30 PM EST Office Visit Adult Medicine [address] [phone] Luis Vazquez MD Elevated blood pressure reading without diagnosis of hypertension (Primary Dx); Primary osteoarthritis involving multiple joints; Fibromyalgia; Generalized anxiety disorder 03/27/2024 1:55 PM EDT - 03/27/2024 11:59 PM EDT Hospital Encounter [facility] [address] [place] [phone] Sree Kim MD Discharge Disposition: Home or Self Care from Last 3 Months Immunizations Name Administration Dates Next Due Influenza Quadravalent, MDCK , 0.5ml, with preservative (Flucelvax) 6mo and older 03/27/2019 Influenza trivalent, 0.5mL (Fluad) 65yo and olde r 02/07/2024 Influenza trivalent, 0.5mL, preservative free (Fluarix; FluLaval; Fluzone) ages 6mo and older (Afluria) 3 years and older 04/17/2020 Tdap Tetanus diptheria acell ular pertussis (Boostrix; Adacel) 7yo and older 03/15/2024,11/26/2010 Surgical History Surgery Date Site/Laterality Comments OTHER SURGICAL HISTORY Left PROCEDURE: HISTORY OTHER; COMMENT: 2020 - L hip fracture CHOLECYSTECTOMY PROCEDURE: HISTORICAL CHOLECYSTECTOMY OTHER SURGICAL HISTORY Left PROCEDURE: HISTORY OTHER; COMMENT: L knee - torn meniscus repair Medical History Medical History Date Comments HTN (hypertension) DX:HTN (hyper tension) Venous insufficiency DX:Venous i nsufficiency Prediabetes DX:Prediabetes Mixed hyperlipidemia DX:Mixed hy perlipidemia Atherosclerosis DX:Atheroscleros is; COMMENT: CT head/facial bones/Cspine 01/28/24 C (seen at ER s/p mechanical fall) - atherosclerotic disease of intracranial internal carotid and vertebral arteries per report Meningitis DX:Meningitis Family History Medical History Relation Name Comments Stroke Father Other: Other Mother kidney disease Heart attack Son Relation Name Status Comments Father Mother Son Social History Tobacco Use Types Packs/Day Years Used Date Smoking Tobacco: Never Smokeless Tobacco: Never Tobacco Cessation:Counseling Given: Not Answered Alcohol Use Standard Drinks/Week Comments Never 0 (1 standard drink = 0.6 oz pur e alcohol) Sex and Gender Information Value Date Recorded Sex Assigned at Not on file Gender Identity Not on file Sexual Orientation Not on file Job Start Date Occupation Industry Not on file Not on file Not on file Obstetrics History Last Filed Vital Signs Vital Sign Reading Time Taken Comments Blood Pressure 130/76 04/17/2024 12:12 PM EST Pulse 86 04/17/2024 12:12 PM EST Temperature 36.2 ??C (97.2 ??F) 04/17/2024 12:[address] Respiratory Rate - - Oxygen Saturation 97% 04/17/2024 12:12 PM EST Inhaled Oxygen Concentration - - Weight 87.2 kg (192 lb 3.2 oz) 04/17/2024 12:12 PM EST Height 160 cm (5' 2.99 ) 04/17/2024 12:12 PM EST Body Mass Index 34.06 04/17/2024 12:12 PM EST Plan of Treatment Upcoming Encounters Date Type Department Care Team (Late st Contact Info) Description 08/19/2024 10:00 AM EDT Appointment Neurodiagnostic [address] [place] [phone] 08/20/2024 11:00 AM EDT Appointment Neurodiagnostic [address] [place] [phone] 08/21/2024 11:00 AM EDT Appointment Neurodiagnostic [address] [place] [phone] 09/10/2024 10:00 AM EDT Appointment Bone Density - [address] [phone] 09/10/2024 10:30 AM EDT Appointment Radiology Department - [address] [phone] 12/05/2024 8:00 AM EDT Office Visit Adult Medicine [facility] - [address] [phone] Luis Vazquez MD [address] [place] [phone] Health Maintenance Due Date Last Done Comments Breast Cancer Screening 1955 Hepatitis A Vaccines (1 of 2 - Risk 2-dose series) 1975 Zoster Vaccines (1 of 2) 2006 Hepatitis B Vaccines (1 of 3 - Risk 3-dose series) 2016 RSV Immunization Patients 60 + Years Old (1 - Risk 60-74 years 1-dose series) 2016 COVID-19 Vaccine (2023-2 5 season) 2024 04/17/2021, 08/19/2020, 07/22/2020 Colorectal Cancer Screening: Colonoscopy 03/05/2024 Depression Screening 03/05/2024 Falls Risk Assessment 03/05/2024 Medicare Annual Wellness Visit 03/05/2024 Osteoporosis Screening (Bone Density Screening) 03/05/2024 Social Influencers of Health Screening 03/05/2024 Hypertension/CHF/CAD Annual BMP Blood Test 01/23/2025 01/24/2024, 01/24/2024 Cholesterol Screening (Lipid Panel) 01/23/2029 01/24/2024, 01/24/2024 DTaP,Tdap,and Td Vaccines (3 - Td or Tdap) 03/15/2034 03/15/2024, 11/26/2010 Hepatitis C Screening Completed 01/24/2024 Influenza Vaccine Completed 02/07/2024, 04/17/2020, 03/27/2019 Pneumococcal Vaccine: 65+ Years Completed 03/15/2024 HIB Vaccines Aged Out No longer eligi ble based on patient's age to complete this topic HPV Vaccines Aged Out No longer eligi ble based on patient's age to complete this topic IPV Vaccines Aged Out No longer eligi ble based on patient's age to complete this topic MMR Vaccines Aged Out No longer eligi ble based on patient's age to complete this topic Meningococcal ACWY Vaccine Aged Out N o longer eligible based on patient's age to complete this topic RSV Immunization Patients Under 20 months Aged Out No longer eligible b ased on patient's age to complete this topic Varicella Vaccines Aged Out No longer eligible based on patient's age to complete this topic Procedures Procedure Name Priority Date/Time Associated Diagnosis Comments ECHO 03/27/2024 HEPATITIS C SCREENING Routine 01/24/2024 ANNUAL BMP BLOOD TEST Routine 01/24/2024 LIPID PANEL Routine 01/24/2024 from Last 3 Months or Most Recently Relevant to Health Maintenance Results * Echo (03/27/2024) Anatomical Region Laterality Modality Other Provider Onbase CV HISTORICAL CONV P ROCEDURES * Annual BMP Blood Test (01/24/2024) Pathologist [facility] Annual BMP Blood Test abstracted Historical Provider MD CASTORENA MAINTENANC E * Hepatitis C Screening (01/24/2024) Pathologist [facility] Hepatitis C Screening abstracted Historical Provider MD KELL SCOTT E * (ABNORMAL) Lipid panel (01/24/2024) LDL/HDL Ratio 4 0 - 4 Triglycerides 110 0 - 150 mg/dL Cholesterol 233(A) 0 - 200 mg/dL HDL 67 40 mg/dL LDL Cholesterol 144(A) 0 - 100 mg/dL Blood Venous blood specimen / Unknown Historical Provider LAB BLOOD ORDERAB LES from Last 3 Months or Most Recently Relevant to Health Maintenance Care Teams Campus Security Director Relationship Specialty Start Date End Date Luis Vazquez MD [address] [place] [phone] PCP - General 01/16/24
== END 2024-06-25 11:21 | disposition home or self-care (01) ==
PROVIDERS: PCP Family Medicine; Visit Provider Physician Assistant Medical
DX: E16.2 Hypoglycemia, unspecified (principal); Q89.1 Congenital malformations of adrenal gland

== ENCOUNTER → 2024-06-25 10:30 | Outpatient (BNVA) | payer OTHER, SELFPAY | PROVIDERS: PCP Family Medicine; Visit Provider Physician Assistant Medical | DX: E16.2 Hypoglycemia, unspecified (principal); Q89.1 Congenital malformations of adrenal gland; R73.03 Prediabetes | CPT/HCPCS: 99212 ==

== ENCOUNTER 2024-09-24 10:37 | Outpatient (AMB) | payer OTHER, SELFPAY ==
--- NOTE | 2024-09-24 10:41 | A.OFFVIS_ITS ---
Vital Signs 09/24/24 10:43 Height 5 ft 3 in Weight 178 lb 5.663 oz BMI 31.6 BP 114/78 Blood Pressure Location Rt brachial Position Sitting Pulse 74 Pulse Source Pulse Oximeter Pulse Oximetry (%) 95 Oxygen Delivery Method Room Air Intake Visit Reasons: Pre-DM Intake Note: Patient present today for Hypoglycemia follow up. Cardiovascular Specialist Required: No Accompanied by: Daughter Allergies prednisone [PREDNISONE] Allergy (Intermediate, Verified 09/24/24 10:44) anxiety doxycycline [DOXYCYCLINE] Allergy (Unknown, Verified 09/24/24 10:44) NAUSEA & VOMITING, vomiting HPI Comments Details: This is a 69-year-old female with a past medical history of obesity, hyperlipidemia, prediabetes, hypertension and chronic lower back pain presenting for a follow up appointment for hypoglycemia and prediabetes. Patient does not have CGM/glucometer with her today. Patient had appointment at [place] on 05/31/24. She had follow up lab work and no further evaluation was required for hypoglycemia. As you recall she had an episode of loss of consciousness secondary to hypoglycemia with blood sugar in the 40s. Previously she was experiencing hypoglycemia without warning symptoms until her blood sugar was quite low. She met with the educator and dietitian. She had one episode of hypoglycemia on [facility] since I saw her. She felt hungry and sweaty. She corrected by eating something, and the symptoms resolved. She did not check her blood sugar at the time. She is feeling well and very happy with her weight loss. She lost another 5 lb. She wants to lose another 10-15 pounds this year. She is walking at the park and put a lot of effort into her diet. She has a prescription for Baqsimi and glucose tablets. ROS: Constitutional: No unexplained weight loss, fever, chills, fatigue or night sweats. Eyes: No vision changes Respiratory: No shortness of breath Cardiovascular: No chest pain Gastrointestinal: No anorexia, nausea, vomiting or diarrhea. No abdominal pain today or blood in stool. Neurologic: No seizures, syncope, dizziness, headaches or tremors Endocrine: No cold or heat intolerance. No polyuria or polydipsia. Physical exam: Constitutional: Alert, in no distress. Respiratory: Clear to auscultation. Cardiovascular: S1 S2 regular. No murmurs. Neurologic: No focal neurological deficits. Extremities: Warm and well perfused. No clubbing, cyanosis or edema. Psychiatric: Normal mood and affect [facility] Medical History (Updated 06/25/24 @ 11:25 by LAKESHIA Keyes) Prediabetes Adrenal gland anomaly Hypoglycemia Breast calcification, left Obesity Post-menopausal Screening for breast cancer Screening for diabetes mellitus Acute sinusitis Hyperlipidemia Hypertension Surgical History History of surgery History of lateral meniscus repair of left knee History of tooth extraction History of hip surgery History of cholecystectomy Family History Father Cerebral aneurysm Mother Stroke Renal failure Maternal Grandmother Glaucoma Brother Diabetes Social History Housing: Apartment Alcohol intake: never Patient Tobacco Use Status: Former Tobacco user Tobacco use type: Cigarette e-Cigarette/Vaping Use: Never Used Second Hand Smoke Exposure: No Substance Use Type: Marijuana service: No Current occupational status: retired Cognitive needs: No Hearing needs: No Vision needs: No Physical Exam Vital Signs: Last Vital Signs Pulse 74 09/24/24 10:43 BP 114/78 09/24/24 10:43 Pulse Ox 95 09/24/24 10:43 Oxygen Delivery Method Room Air 09/24/24 10:43 BMI result Body Mass Index 31.6 Results Reviewed Results Reviewed: Laboratory Tests 01/28/24 03/08/24 16:03 13:24 Plt Count 250 Creatinine 0.74 Estimated GFR > 60 Hgb A1c (Clinic) 5.8 AST 25 ALT 26 Assessment & Plan Assessment & Plan (1) Hypoglycemia: Code(s): E16.2 - Hypoglycemia, unspecified Category: Medical (2) Prediabetes: Code(s): R73.03 - Prediabetes Category: Medical Plan In summary this is a 69-year-old female with a past medical history of prediabetes, obesity and hypoglycemia presenting for follow up. She has been doing much better. She had only 1 recent episode of hypoglycemia which she corrected. She is following dietary guidelines. She was seen at [facility] for evaluation of hypoglycemia which is not felt to be pathologic. We discussed treatment of hypoglycemia again in detail. She has written instruction and glucose tablets and a prescription of Baqsimi. She recently changed insurance, and they denied her CGM. We have appealed this and are waiting on the response. I gave her a sample sensor today. She will have lab work done in 3 months and follow up with me to review the results. Orders: Orders Hemoglobin A1c 12/24/24 E16.2 - Hypoglycemia, unspecified, R73.03 - Prediabetes Alanine Aminotransferase 12/24/24 E16.2 - Hypoglycemia, unspecified, R73.03 - Prediabetes Aspartate Amino Transferase 12/24/24 E16.2 - Hypoglycemia, unspecified, R73.03 - Prediabetes Lipid Panel 12/24/24 E16.2 - Hypoglycemia, unspecified, E78.5 - Hyperlipidemia, unspecified, R73.03 - Prediabetes TSH reflex Free T4 12/24/24 E16.2 - Hypoglycemia, unspecified, R73.03 - Prediabetes Platelet Count 12/24/24 E16.2 - Hypoglycemia, unspecified, R73.03 - Prediabetes Creatinine 12/24/24 R73.03 - Prediabetes Coding Level of Care Code Est Pt Level 4 (75988) Complex EM visit Add On G2211 Diagnoses Hypoglycemia E16.2 Prediabetes R73.03
[2024-09-24 10:43] VITALS: BP 114/78; PULSE 74; O2SAT 95; BMI 31.6
--- OUTSIDE RECORDS SUMMARY | 2024-09-24 12:13 | XMS_ITS | Clinical Summary ---
Author Organization [facility] [address] [facility] Address [address] [place] [address] Phone Care Team Providers Care Legal Editor Name Role Phone Luis Vazquez MD Primary Care Pr ovider Allergies Active Allergy Reactions Criticality Noted Date Comments Azithromycin 01/24/2024 Doxycycline 01/24/2024 Prednisone 01/24/2024 Medications fexofenadine HCl (TRENT ALLERGY ORAL) Take by mouth. Active atorvastatin (LIPITOR) 20 mg tablet TAKE ONE TABLET BY MOUTH EVERY DAY 90 tablet 1 5 Active cholecalciferol (VITAMIN D-3) 50 mcg (2,000 unit) tabletIndicatio ns:Osteopenia of right hip Take 1 tablet (2,000 Units total) by mouth 1 (one) time each day. 90 tablet 3 5 09/06/19 26 Active atorvastatin (LIPITOR) 20 mg tablet Take 1 tablet (20 mg total) by mouth 1 (one) time each day. 09/04/19 25 Discontinued Active Problems Problem Noted Date Diagnosed Date Osteopenia of right hip 09/10/2024 Fibromyalgia 04/17/2024 Primary osteoarthritis involving multiple joints 04/17/2024 Generalized anxiety disorder 04/17/2024 Fatty liver 03/20/2024 Atrophic pancreas 03/20/2024 Restless leg syndrome 03/20/2024 Obesity (BMI 30.0-34.9) 03/20/2024 Diverticulosis 03/20/2024 Marijuana use 03/20/2024 Hyperlipidemia 02/07/2024 Prediabetes 02/07/2024 Atherosclerosis 02/07/2024 Overview (03/20/2024): CT head, facial bones, cervical spine 01/28/24 [place] [place] 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 Primary hypertension 01/24/2024 Encounters Date Type Department Care Team Description 09/10/2024 9:46 AM EDT - 09/10/2024 11:59 PM EDT Hospital Encounter Radiology Department - [address] [phone] Encounter for screening mammogram for malignant neoplasm of breast Discharge Disposition: Home or Self Care 09/10/2024 9:46 AM EDT - 09/10/2024 11:59 PM EDT Hospital Encounter Bone Density - [address] [phone] Osteoporosis screening Discharge Disposition: Home or Self Care from [...] COMMENT: L knee - torn meniscus repair STEREOTACTIC CORE BIOPSY 05/29/2022 - 05/28/2023 Left neg Medical History Medical History Date Comments HTN [...] Stroke Father Other: Other Mother kidney disease Breast cancer Other mat aunt Heart attack Son Relation Name Status Comments Father Mother Other mat aunt Son Social History Tobacco Use Types Packs/Day Years Used Date Smoking Tobacco: Never Smokeless Tobacco: Never Tobacco Cessation:Counseling Given: Not Answered Alcohol Use Standard Drinks/Week Comments Never 0 (1 standard drink = 0.6 oz pur e alcohol) Comments Unknown Sex and Gender Information Value Date Recorded Sex Assigned at Not on file Legal Sex Female 1:48 PM EST Gender Identity Not on file Sexual Orientation Not on file Obstetrics History Para Term AB IAB SAB Ectopic Multiple Livin g Live Births 3 3 3 3 Date Outcome GA Total Labor Labor/2nd/3rd Weight Sex Type Anes PTL Mayra A1 A5 Name Clin Term Term Term Last Filed Vital Signs Vital Sign Reading [...] Care Team (Late st Contact Info) Description 09/30/2024 11:20 AM EDT Office Visit Gastroenterology - [address] [facility] [address] [place] [phone] Martin Dickinson PA [facility] Christopher [address] [place] [phone] 10/29/2024 10:00 AM EDT Appointment [facility] [address] [place] [address] 10/30/2024 11:00 AM EDT Appointment [facility] [address] [place] [phone] 10/31/2024 11:00 AM EDT Appointment [facility] [address] [place] [phone] 12/05/2024 8:00 AM EDT Office Visit Adult Medicine [address] [phone] Luis Vazquez MD [address] [place] [phone] Health Maintenance Due Date Last Done Comments Hepatitis A Vaccines (1 of 2 - Risk 2-dose series) 1975 Zoster Vaccines (1 of 2) 2006 Hepatitis B Vaccines (1 of 3 - Risk 3-dose series) 2016 RSV Immunization Adult Patients (1 - Risk 60-74 years 1-dose series) 2016 COVID-19 Vaccine (2023-2 5 season) 2024 04/17/2021, 08/19/2020, 07/22/2020 Colorectal Cancer Screening: Colonoscopy 03/05/2024 Depression Screening 03/05/2024 Falls Risk Assessment 03/05/2024 Medicare Annual Wellness Visit 03/05/2024 Social Influencers of Health Screening 03/05/2024 Hypertension/CHF/CAD Annual BMP Blood Test 01/23/2025 01/24/2024, 01/24/2024 Breast Cancer Screening 09/10/2026 09/10/2024 Cholesterol Screening (Lipid Panel) 01/23/2029 01/24/2024, 01/24/2024 DTaP,Tdap,and Td Vaccines (3 - Td or Tdap) 03/15/2034 03/15/2024, 11/26/2010 Osteoporosis Screening (Bone Density Screening) 09/10/2034 09/10/2024 Hepatitis C Screening Completed 01/24/2024 Influenza Vaccine Completed 02/07/2024, 04/17/2020, 03/27/2019 Pneumococcal Vaccine: 50+ Years Completed 03/15/2024 HIB Vaccines Aged Out [...] patient's age to complete this topic Meningococcal B Vaccine Aged Out No l onger eligible based on patient's age to complete this topic RSV Immunization Patients Under 20 months Aged Out No longer eligible b ased on patient's age to complete this topic Varicella Vaccines Aged Out No longer eligible based on patient's age to complete this topic Procedures Procedure Name Priority Date/Time Associated Diagnosis Comments BD BONE DENSITY DXA AXIAL SKELETON Routine 09/10/2024 11:04 AM EDT Osteoporosis screening MG MAMMO DIGITAL SCREENING W RANDELL BILAT Routine 09/10/2024 10:34 AM EDT Encounter for screening mammogram for malignant neoplasm of breast HEPATITIS C SCREENING Routine 01/24/2024 ANNUAL BMP BLOOD TEST Routine 01/24/2024 LIPID PANEL Routine 01/24/2024 from Last 3 Months or Most Recently Relevant to Health Maintenance Results * BD Bone Density DXA Axial Skeleton (09/10/2024 11:04 AM EDT) Anatomical Region Laterality Modality Wrist, Hip, L-spine Bone Densito metry 09/10/2024 11:2 7 AM EDT Impressions 09/10/2024 11:31 AM EDT Impression: This patient is considered to have osteopenia by WHO criteria. ??FRAX not reported because patient has history of prior hip or vertebral fracture. [facility] Department of Internal Medicine recommends using National Osteoporosis Foundation (NOF) guidelines in treatment decisions related to osteoporosis. NOF guidelines suggest considering treatment for postmenopausal women and men aged 50 or older presenting with the following: History of hip or vertebral fracture. T-score = -2.5 (DXA) at the femoral neck, total hip, or spine, after appropriate evaluation to exclude secondary causes. Low bone mass (T-score between -1.0 and -2.5 at the femoral neck or spine) AND a 10-year probability of a hip fracture = 3% OR a 10-year probability of a major osteoporosis-related fracture = 20% based on the [place]-adapted WHO algorithm Please note that all treatment decisions require clinical judgment and consideration of individual patient factors, including patient preferences, co-morbidities, previous drug use, risk factors not captured in the FRAX model (e.g., frailty, falls, vitamin D deficiency, increased bone turnover, interval significant decline in bone density) and possible under- or over-estimation of fracture risk by FRAX. Optional alternative screening schedule based on john Ordonez., [facility] June 16, 2011 for patients with osteopenia (based on hip BMD T-score) is as follows: * ??advanced osteopenia (T scores -2.00 to -2.49), BMD testing every year * ??moderate osteopenia (T scores -1.50 to -1.99), BMD testing every 5 years mild osteopenia or normal BMD (T scores -1.50 and higher), BMD testing every 15 years -------- FINAL REPORT -------- Dictated By: Emily Perdomo Dictated Date: 09/10/2024 11:27 ET Assigned Physician: Emily Perdomo Reviewed and Electronically Signed By: Emily Perdomo Signed Date: 09/10/2024 11:31 ET Workstation ID: [id number] Transcribed By: Self Edit Transcribed Date: 09/10/2024 11:27 ET Narrative 09/10/2024 11:31 AM EDT BONE DENSITY (DEXA) ? Lumbar Spine T-score is 0.9. ?? (SD relative to 20-29 y/o adult) Z-score is 0.9. ??(SD relative to age matched peers) This is considered normal by WHO criteria. RIGHT Hip T-score is -1.9. Z-score is -0.5. This is osteopenia by WHO criteria. Lateral view of the spine demonstrates vertebral heights to be maintained. Procedure Note Emily Perdomo MD - 09/10/2024 BONE DENSITY (DEXA) Lumbar Spine T-score is 0.9. (SD relative to 20-29 y/o adult) Z-score is 0.9. (SD relative to age matched peers) This is considered normal by WHO criteria. RIGHT Hip T-score is -1.9. Z-score is -0.5. This is osteopenia by WHO criteria. Lateral view of the spine demonstrates vertebral heights to bemaintained. IMPRESSION: Impression: This patient is considered to have osteopenia by WHO criteria. FRAX notreported because patient has history of prior hip or vertebral fracture. [facility] Department of Internal Medicine recommendsusing National Osteoporosis Foundation (NOF) guidelines in treatmentdecisions related to osteoporosis. NOF guidelines suggest consideringtreatment for postmenopausal women and men aged 50 or older presentingwith the following: History of hip or vertebral fracture. T-score = -2.5 (DXA) at the femoral neck, total hip, or spine, afterappropriate evaluation to exclude secondary causes. Low bone mass (T-score between -1.0 and -2.5 at the femoral neck or spine)AND a 10-year probability of a hip fracture = 3% OR a 10-year probabilityof a major osteoporosis-related fracture = 20% based on the [place]-adapted WHOalgorithm Please note that all treatment decisions require clinical judgment andconsideration of individual patient factors, including patientpreferences, co-morbidities, previous drug use, risk factors not capturedin the FRAX model (e.g., frailty, falls, vitamin D deficiency, increasedbone turnover, interval significant decline in bone density) and possibleunder- or over-estimation of fracture risk by FRAX. Optional alternative screening schedule based on john Ordonez., NEJJanuary 2011 for patients with osteopenia (based on hip BMD T-score)is as follows: * advanced osteopenia (T scores -2.00 to -2.49), BMD testing every year * moderate osteopenia (T scores -1.50 to -1.99), BMD testing every 5years mild osteopenia or normal BMD (T scores -1.50 and higher), BMD testingevery 15 years -------- FINAL REPORT -------- Dictated By: Emily Perdomo Dictated Date: 09/10/2024 11:27 ET Assigned Physician: Emily Perdomo Reviewed and Electronically Signed By: Emily Perdomo Signed Date: 09/10/2024 11:31 ET Workstation ID: [id number] Transcribed By: Self Edit Transcribed Date: 09/10/2024 11:27 ET Luis Vazquez MD IMG DXA PROCEDUR ES Final Result * MG Mammo Digital Screening w Randell bilat (09/10/2024 10:34 AM EDT) Anatomical Region Laterality Modality Breast Bilateral Mammography 09/10/2024 2:16 PM EDT Impressions 09/10/2024 2:23 PM EDT Benign. BI-RADS CATEGORY: 1 - NEGATIVE RECOMMENDATION: Screening bilateral mammogram is recommended in 1 year. Mammo Location: [facility], [address] [place] [address], [phone], . -------- FINAL REPORT -------- Dictated By: Emily Perdomo Dictated Date: 09/10/2024 14:16 ET Assigned Physician: Emily Perdomo Reviewed and Electronically Signed By: Emily Perdomo Signed Date: 09/10/2024 14:23 ET Workstation ID: [id number] Transcribed By: Self Edit Transcribed Date: 09/10/2024 14:16 ET Narrative 09/10/2024 2:23 PM EDT CLINICAL: 69 years old, Female, routine annual exam. COMPARISON: Mammograms dating back to 03/09/2021 with most recent of 07/12/2023. ?? TECHNIQUE: Bilateral MLO and CC views were obtained digitally with 3-D mammogram (digital breast tomosynthesis). Computer-aided detection was utilized in evaluation of this exam (CAD). FINDINGS: There is no evidence of suspicious mass or architectural distortion. ??No worrisome calcifications are evident. ??There has been no significant change from prior exam(s). ?? BREAST DENSITY: B - There are scattered areas of fibroglandular density. Procedure Note Emily Perdomo MD - 09/10/2024 CLINICAL: 69 years old, Female, routine annual exam. COMPARISON: Mammograms dating back to 03/09/2021 with most recent of07/12/2023. TECHNIQUE: Bilateral MLO and CC views were obtained digitally with 3-Dmammogram (digital breast tomosynthesis). Computer-aided detection wasutilized in evaluation of this exam (CAD). FINDINGS: There is no evidence of suspicious mass or architectural distortion. Noworrisome calcifications are evident. There has been no significantchange from prior exam(s). BREAST DENSITY: B - There are scattered areas of fibroglandular density. IMPRESSION: Benign. BI-RADS CATEGORY: 1 - NEGATIVE RECOMMENDATION: Screening bilateral mammogram is recommended in 1 year. Mammo Location: [facility], [address] [place] [address], [phone], . -------- FINAL REPORT -------- Dictated By: Emily Perdomo Dictated Date: 09/10/2024 14:16 ET Assigned Physician: Emily Perdomo Reviewed and Electronically Signed By: Emily Perdomo Signed Date: 09/10/2024 14:23 ET Workstation ID: [id number] Transcribed By: Self Edit Transcribed Date: 09/10/2024 14:16 ET Luis Vazquez MD [facility] BI PROCEDURE S Final Result * Annual BMP Blood Test (01/24/2024) Annual BMP Blood Test abstracted Historical Provider HEALTH MAINTENANCE Final Result * Hepatitis C Screening (01/24/2024) Hepatitis C Screening abstracted Historical Provider HEALTH MAINTENANCE Final Result * (ABNORMAL) Lipid panel (01/24/2024) LDL/HDL Ratio 4 0 - 4 Triglycerides 110 0 - 150 mg/dL Cholesterol 233(A) 0 - 200 mg/dL HDL 67 >=40 mg/dL LDL Cholesterol 144(A) 0 - 100 mg/dL Blood Venous blood specimen / Unknown Historical Provider LAB BLOOD ORDERABLES Brenna l Result from Last 3 Months or Most Recently Relevant to Health Maintenance Insurance [employer] Care Teams Legal Editor Relationship Specialty Start Date End Date Luis Vazquez MD [address] [place] [address] PCP - General 01/16/24
--- OUTSIDE RECORDS SUMMARY | 2024-09-24 12:13 | XMS_ITS | Data Portability ---
Author Organization [employer] [employer] Address [address] [place] [address] Care Team Providers Care Scorekeeper Name Role Phone HIM LINH OTHER Assessment Encounter Date Assessment Date Assessment LastModified by Organization Details LastModified Time 11/22/2023 11/22/2023 I provided real -time medical direction via phone for this encounter and was available for additional phone-based assistance as needed. I have reviewed and agree with the Assessment and Plan as documented by the Square Cutter. Patient given the opportunity to ask questions. Our service contacted for an assessment of: Diabetes mellitus As per above, patient with several episodes of hypoglycemia. Can not get in to see PCP however did go to the emergency department and was sent to the PCP. Per venture capitalist on the scene, vital signs are stable [...] Name and Address Organization Details Recorded Time 1950 prednison e medicatio n Not available Not [...] Address Organization Details Last Updated DateTime 4 60228.4 8 g 97.5 [degF] 16 /min 70 [...] SNOMED-CT Code Diagnosis ICD10 Code Diagnosis Note [id number] Cornelia Blanton MD Main - [facility] [address] [place] [phone] 11/22/2023 22:04:56 11/23/2023 09:12:52 Type 2 diabetes mellitus 73354167 E11.9 Health Concerns Section Related Observation LastModified by Organization Detai ls LastModified Time None Recorded Concern Status LastModified by Organization Details LastModified Time None Recorded Advance Directives Directive None Recorded Payers Encounter Date Sequence Insurance Name Policy Number Policy Orozco Covered Member ID Orozco Member ID Guarantor Name 11/22/2023 1 [facility] - DOS ON OR AFTER 2022 - DUAL ELIGIBLE - SNF OPTIONS AND ONE CARE (MEDICARE REPLACEMENT/AD VANTAGE - HMO) Dana Yost [id number] Dana Yost Notes Date Note Type Note [...] worsening symptoms. MBR can be reached at [phone]. ................. ................. ................. ................. ................. ................. ................. ................. ..... CRC Nurse Triage Notes (Amarjit Neal): Comments: Reviewed HPI ................. ................. ................. ................. ................. ................. ................. ................. ..... Square Cutter Note From Dioni Buchanan: Pt co low [...] Pt education on signs indicating the ER. Square Cutter Allergies: Prednisone ................. ................. ................. ................. ................. ................. ................. ................. ..... Disposition: Fulfilled Cornelia Blanton MD [address] [facility],[address], [place], [phone], [facility] 11/22/2023 22:18:34 OBGyn Episode No OBEpisode recorded.
--- OUTSIDE RECORDS SUMMARY | 2024-09-24 12:14 | XMS_ITS | Data Portability ---
Author Organization [place] - [facility], [facility] Address [address] [place] [phone] Care Team Providers Care Gate Attendant Name Role Phone BROOKS GAYLE Primary Care Provider Assessment No assessment recorded. Plan of Treatment Reminders Order Date Submit Date Provider Last Modified By Organization Details Last Modified Time Details Appointments None record ed. Lab None record ed. Referral None record ed. Procedures None record ed. Surgeries None record ed. Imaging None record ed. Medication Orders None record ed. Patient TargetsNo targets recorded. Patient InstructionsNo instructions recorded. Reason for Referral None Reported. Results Created Date Observation Date Name Description Value Unit Range Abnormal Flag Note LastModifiedBy Organization Detail LastModifiedTime 02/08/20 24 01/28/2024 CT, cervi yessy spine , w/o contr ast No observ ation record ed. [email or web address] Not Available 2023 15:19:13 Result Notes None recorded. Problems Name Problem SNOMED Code Status Onset Date Resolution Date Notes Provider Name and Address Organization Details Recorded Time Closed fracture of nasal bones [id number] Active 024 JANES JANG MD [address] [place] [address], [place], [phone] , [place] - [facility] 14:23:41 Problem Notes None recorded. Procedures Surgical History Date Name Laterality Status Provider Name and Address Organization Details Recorded Time cholecystectomy completed JANES JANG MD [address] [place] [address],[place] [address], [place], [phone], [place] - [facility] 02/08/2024 14:18:24 Imaging Results Imaging Date Name Status LastModified by Organiz ation Details LastModified Time 01/28/2024 CT, cervical spine, w/o contrast completed [email or web address] Information not available 02/08/2024 15:19:13 Procedure Notes None recorded. Medical Equipment None Reported. Allergies No known drug allergies Medications Name Sig Start Date Stop Date Status Note LastModified by Organization Details LastModified Time atorvastati n 20 mg tablet active Not Available Not Available Not Available cetirizine 10 mg tablet TAKE ONE TABLET BY MOUTH EVERY DAY NEEDED FOR ALLERGIOE S active Not Available Not Available No t Available atorvastati n 10 mg tablet TAKE ONE TABLET BY MOUTH EVERY DAY 02/07 completed Not Available Not Available Not Available FreeStyle Lancets 28 gauge TEST ONCE A DAY active Not Available Not Available No t Available bacitracin 500 unit/gram topical ointment APPLY TO AFFECTED AREA S) TWO TIMES A DAY active Not Available Not Available No t Available tramadol 50 mg tablet TAKE ONE TABLET BY MOUTH EVERY 8 HOURS NEEDED FOR PAIN 02/07 completed Not Available Not Available Not Available lisinopril 5 mg tablet TAKE ONE TABLET BY MOUTH EVERY DAY 02/07 completed Not Available Not Available Not Available lisinopril 2.5 mg tablet active Not Available Not Available Not Available amoxicillin 875 mg-potassiu m clavulanate 125 mg tablet TAKE ONE TABLET BY MOUTH TWICE A DAY FOR 7 DAYS 02/07 completed Not Available Not Available Not Available FreeStyle Lite Meter kit USE DIRECTED active Not Available Not Available No t Available FreeStyle Lite Strips TEST ONCE A DAY active Not Available Not Available No t Available Vitals Date Recorded Body height Body mass index (BMI) Body weight Provider Name and Address Organization Details Last Updated DateTime 02/08/2024 160.02 cm 34.5 kg/m2 59540.51 g Gabi Sparks [place] - [facility] 02/08/2024 14:06:01 Social History None recorded. Functional Status None recorded. Mental Status None recorded. Family History Nothing Reported. Medical History Condition Response Migraines Y Anxiety Y Hypertension Y Depression Y Asthma Y Gynecological HistoryNo gynecological history recorded. Obstetrics History GPAL:G 0 P 0 0 0 0 Past Encounters Encounter ID Performer Location Encounter Start Date Encounter Closed Date Diagnosis/Indication Diagnosis SNOMED-CT Code Diagnosis ICD10 Code Diagnosis Note [id number] JANES JANG MD [facility] on [address] [facility] [place]NDEZ [phone] 02/08/2024 13:15:59 02/08/2024 16:27:21 Closed fracture of nasal bones [id number] S02.2XXA 68-year-ol d female presents today for evaluation of a nasal bone fracture. She was seen in the emergency department at [place]. She also had some soft tissue injury which has since healed. She feels that her smell and breathing are actually better after her most recent injury; she did have a pre-existi ng nasal trauma.On exam, there is healing abrasion over the nasal dorsum. Dorsum is slightly deviated to the left in the midportion . She has a mild leftward septal deviation without any hematoma. There is a very subtle step-off at the dorsum.She is content with the appearance of the nose and giving no functional defect have not recommende d any further interventi on. I did substance abuse counselor her takes 4 to 6 weeks to heal fully. She may follow-up as needed. Health Concerns Section Related Observation LastModified by Organization Detai ls LastModified Time None Recorded Concern Status LastModified by Organization Details LastModified Time None Recorded Advance Directives Directive None Recorded Payers Encounter Date Sequence Insurance Name Policy Number Policy Orozco Covered Member ID Orozco Member ID Guarantor Name 02/08/2024 1 [facility] - DOS ON OR AFTER 2022 - MEDICARE ADVANTAGE [place] (MEDICARE REPLACEMENT/AD VANTAGE - PPO) Dana Yost [id number] Dana Yost Notes Date Note Type Note Provider Name and Address Organization Details Recorded Time 02/08/2024 text/html 68 yo F presents for assessment of nasal bone fracture 14 days ago after trip on a sidewalk curb. Actually feels that she can smell and breathe better as she did have a pre-existing nasal injury. Initially had bleeding and raccoon eyes which has since improved, but did not have any loss of consciousness or any vision changes. She does have a history of allergies on maría. JANES JANG MD [address] [place] [address], [phone], [facility] - [facility] 02/11/2024 11:34:21 OBGyn Episode No OBEpisode recorded.
== END 2024-09-24 11:23 | disposition home or self-care (01) ==
LOC: HO.ENCR 10:38
PROVIDERS: PCP Family Medicine; Visit Provider Physician Assistant Medical
DX: E16.2 Hypoglycemia, unspecified (principal); R73.03 Prediabetes

== ENCOUNTER → 2024-09-24 10:37 | Outpatient (BNVA) | payer OTHER, SELFPAY | PROVIDERS: PCP Family Medicine; Visit Provider Physician Assistant Medical | DX: E16.2 Hypoglycemia, unspecified (principal); R73.03 Prediabetes | CPT/HCPCS: 99212 ==

== ENCOUNTER 2025-01-06 08:28 | Outpatient (REF) | payer OTHER, SELFPAY ==
--- OUTSIDE RECORDS SUMMARY | 2025-01-06 08:46 | XMS_ITS | Clinical Summary ---
Author Organization [employer] Address [address] [place] [address] Care Team Providers Care Auto Emissions Technician Name Role Phone Unavailable Primary Care Provider [...] 1968 Hepatitis C Screening 1974 Mammogram 1996 Pneumococcal Vaccine: 50+ Years (1 of 1 - PCV) 2006 Zoster Vaccines (1 of 2) 2006 DTaP/Tdap/Td Vaccines (2 - T d or Tdap) 11/26/2020 11/26/2010 Dental Oral Exam 06/24/2023 12/21/2022 Dental Prophylaxis 06/24/2023 12/21/2022 COVID-19 Vaccine (4 - 2023-2 5 season) 2024 04/17/2021, 08/19/2020, 07/22/2020 Tobacco Screening 03/29/2024 03/29/2023 Influenza Vaccine (#1) 2025 , 03/27/2019 Dental X-Ray: Full Mouth 10/27/2025 10/26/2022 RSV [...] Most Recently Relevant to Health Maintenance Insurance [place] [address]
--- OUTSIDE RECORDS SUMMARY | 2025-01-06 08:46 | XMS_ITS | Clinical Summary ---
Author Organization [facility] [address] [facility] Address [address] [place] [address] Phone Care Team Providers Care Quilt Maker Name Role Phone Luis Vazquez MD Primary Care Pr ovider Allergies Active Allergy Reactions Criticality Noted Date Comments Azithromycin 01/24/2024 Doxycycline 01/24/2024 Nsaids (Non-Steroidal Anti-Inflammatory Drug) Hallucinations 05/31/2024 Prednisone 01/24/2024 Medications cholecalciferol (VITAMIN D-3) 50 mcg (2,000 unit) tabletIndications:O steopenia of right hip Take 1 tablet (2,000 Units total) by mouth 1 (one) time each day. 90 tablet 3 5 09/06/19 26 Active Dexcom G7 Sensor device 1 EA. 5 Active cetirizine (ZyrTEC) 10 mg tablet Take 1 tablet (10 mg total) by mouth 1 (one) time each day. 3 Active cyclobenzaprine (FLEXERIL) 5 mg tablet Take 1 tablet (5 mg total) by mouth 3 times daily as needed. Active FreeStyle Lancets 28 gauge lancets 1 each by Other route if needed. 4 Active lisinopriL (PRINIVIL,ZESTRIL) 2.5 mg tablet Take 1 tablet (2.5 mg total) by mouth 1 (one) time each day. 30 tablet 2 5 Active levETIRAcetam (KEPPRA) 250 mg tabletIndications:S eizure disorder ([facility] V24, [facility] V28) Take 1 tablet (250 mg total) by mouth 2 (two) times a day. 5 Active busPIRone (BUSPAR) 5 mg tabletIndications:G eneralized anxiety disorder Take 1 tablet (5 mg total) by mouth 2 (two) times a day. 180 each 5 03/05/20 25 Active pramipexole (MIRAPEX) 0.25 mg tabletIndications:R estless leg syndrome Take 1 tablet (0.25 mg total) by mouth at bedtime. 90 each 1 5 06/03/19 26 Active atorvastatin (LIPITOR) 20 mg tabletIndications:M ixed hyperlipidemia Take 1 tablet (20 mg total) by mouth at bedtime. 90 each 1 5 06/03/19 26 Active Active Problems Problem Noted Date Diagnosed Date Seizure disorder ([facility] V24, [facility] V28) 11/26 Assessment & Plan (12/05/2024 12:06 PM EDT): Continue Keppra 250 mg twice daily. Continue follow-up with neurology-Dr. Lundberg Mild depression 12/05/2024 Assessment & Plan (12/05/2024 12:06 PM EDT): No interest in medication management for now Tics of organic origin 09/30/2024 Osteopenia of right hip 09/10/2024 Assessment & Plan (12/05/2024 12:06 PM EDT): Continue daily vitamin D Hypoglycemia 06/08/2024 Overview (09/30/2024): Sx since childhood. LOC 2023, level 3, glc 40s by FS Fasting labs May 2024 Latest Reference Range & Units Most Recent 05/31/24 09:58 Glucose 70 - 100 mg/dL 100 05/31/24 09:58 100 Vit D, 25-Hydroxy 30 - 60 ng/mL 22 (L) 05/31/24 09:58 22 (L) Cortisol, Plasma 2.0 - 20.0 ug/dL 10.0 05/31/24 09:58 10.0 Beta-Hydroxybutyrate 0.00 - 0.40 mmol/L <0.20 05/31/24 09:58 <0.20 ESTIMATED AVERAGE GLUCOSE (INSTR. CALC) mg/dL 111 05/31/24 09:58 111 Hemoglobin A1C 4.8 - 5.9 % 5.5 05/31/24 09:58 5.5 Insulin Autoantibody <0.4 U/mL <0.4 05/31/24 09:58 <0.4 Insulin, Fasting uIU/mL 6.0 05/31/24 09:58 6.0 Proinsulin < OR = 18.8 pmol/L 11.4 05/31/24 09:58 11.4 GAD65 Antibody, Serum <5 IU/mL <5 05/31/24 09:58 <5 C-Peptide 0.80 - 3.85 ng/mL 3.23 05/31/24 09:58 3.23 (L): Data is abnormally low Lyme disease 06/08/2024 Vitamin D deficiency 06/08/2024 Assessment & Plan (12/05/2024 12:06 PM EDT): Continue daily vitamin D Orders: Vitamin D 25 hydroxy; Future Fibromyalgia 04/17/2024 Primary osteoarthritis involving multiple joints 04/17/2024 Generalized anxiety disorder 04/17/2024 Assessment & Plan (12/05/2024 12:06 PM EDT): Start BuSpar 5 mg twice daily. Orders: busPIRone (BUSPAR) 5 mg tablet; Take 1 tablet (5 mg total) by mouth 2 (two) times a day. Fatty liver 03/20/2024 Assessment & Plan (09/30/2024 12:07 PM EDT): Patient has been eating healthier and has lost 35 pounds over the past year Discussed fatty liver in depth Treatment is weight loss, healthy lifestyle, healthy diet, avoiding hepatotoxins Patient to have LFTs checked Orders: Ambulatory referral to Gastroenterology Hepatic function panel; Future Atrophic pancreas 03/20/2024 Restless leg syndrome 03/20/2024 Assessment & Plan (12/05/2024 12:06 PM EDT): Start pramipexole nightly. She will let me know if she develops any side effects from the medication. Orders: pramipexole (MIRAPEX) 0.25 mg tablet; Take 1 tablet (0.25 mg total) by mouth at bedtime. Obesity (BMI 30.0-34.9) 03/20/2024 Diverticulosis 03/20/2024 Assessment & Plan (09/30/2024 12:07 PM EDT): Discussed diverticular disease in depth. High-fiber diet Risk for diverticulitis and complications discussed Patient handout on diverticulosis/diverticulitis provided Orders: Ambulatory referral to Gastroenterology Marijuana use 03/20/2024 Closed fracture of nasal bones 02/08/2024 Hyperlipidemia 02/07/2024 Assessment & Plan (12/05/2024 12:06 PM EDT): Continue atorvastatin 20 mg nightly. Due for lipid panel which is ordered Orders: Lipid panel with reflex to direct LDL; Future atorvastatin (LIPITOR) 20 mg tablet; Take 1 tablet (20 mg total) by mouth at bedtime. Prediabetes 02/07/2024 Assessment & Plan (12/05/2024 12:06 PM EDT): Last A1c was 5.5 in May from care everywhere records. 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 Continue lisinopril 2.5 mg daily Edentulous maxilla 03/29/2023 Encounters Date Type Department Care Team Description 12/26/2024 Telephone Adult Medicine [address] [phone] Luis Vazquez MD Referral (Pt notified ) 12/05/2024 9:00 AM EDT Office Visit [address] [phone] Luis Vazquez MD Annual wellness visit (Primary Dx); Mixed hyperlipidemia; Prediabetes; Primary hypertension; Restless leg syndrome; Generalized anxiety disorder; Mild depression; Seizure disorder (CMS/HCC V24, CMS/HCC V28); Colon cancer screening; Osteopenia of right hip; Vitamin D deficiency 11/20/[address] [phone] Magda Chery RN 11/06/2024 1:15 PM EDT Office Visit [address] [phone] Leela Faustin PA Primary hypertension (Primary Dx); Hypoglycemia; Restless leg syndrome; Vitamin D deficiency; Other symptoms and signs concerning food and fluid intake; Fibromyalgia 10/31/2024 11:00 AM EDT - 10/31/2024 11:59 PM EDT Hospital Encounter [facility] Neurodiagnostic [address] [place] [phone] Discharge Disposition: Home or Self Care 10/30/2024 10:56 AM EDT - 10/30/2024 11:59 PM EDT Hospital Encounter [facility] [address] [place] [phone] Discharge Disposition: Home or Self Care 10/29/2024 10:00 AM EDT - 10/29/2024 11:59 PM EDT Hospital Encounter [facility] [address] [place] [phone] Discharge Disposition: Home or Self Care 10/07/[address] [phone] Leela Faustin PA from Last 3 Months Immunizations Name Administration Dates Next Due Influenza Quadravalent, MDCK , 0.5ml, with preservative (Flucelvax) 6mo and older 03/27/2019 Influenza trivalent, 0.5mL (Fluad) 65yo and olde r 02/07/2024 Influenza trivalent, 0.5mL, preservative free (Fluarix; FluLaval; Fluzone) ages 6mo and older (Afluria) 3 years and older 04/17/2020 Pneumococcal conjugate 20 va lent (Prevnar 20, PCV 20) 2mo and older 03/15/2024 Tdap Tetanus diptheria acell ular pertussis (Boostrix; [...] DX:Atheroscleros is; COMMENT: CT head/facial bones/Cspine 01/28/24 [facility] (seen at ER s/p mechanical fall) - [...] 3 3 Date Outcome GA Total Labor Labor//3rd Weight Sex Type Anes PTL Mayra A1 A5 Name Clin Term Term Term Last Filed Vital Signs Vital Sign Reading Time Taken Comments Blood Pressure 109/70 12/05/2024 8:56 AM EDT Pulse 69 12/05/2024 8:56 AM EDT Temperature 36.7 C (98.1 F) 12/05/2024 8:56 AM EDT Respiratory Rate 16 12/05/2024 8:56 AM EDT Oxygen Saturation 97% 11/06/2024 1:16 PM EDT Inhaled Oxygen Concentration - - Weight 77.1 kg (170 lb) 12/05/2024 8:56 AM EDT Height 160 cm (5' 3 ) 12/05/2024 8:56 AM EDT Body Mass Index 30.11 12/05/2024 8:56 AM EDT Plan of Treatment Upcoming Encounters Date Type Department Care Team (Late st Contact Info) Description 02/19/2025 1:30 PM EDT Appointment [facility] Endoscopy [address] [place] [phone] Atif Lopez MD [address] [phone] 03/07/2025 10:30 AM EDT Office Visit Adult Medicine [address] [phone] Leela Faustin PA [address] [place] [address] 09/15/2025 9:20 AM EDT Appointment Radiology Department - [address] [phone] Health Maintenance Due Date Last Done Comments Zoster Vaccines (1 of 2) 2006 Hepatitis B Vaccines (1 of 3 - Risk 3-dose series) 2016 RSV Immunization Adult Patients (1 - Risk 60-74 years 1-dose series) 2016 COVID-19 Vaccine (4 - 2023-2 5 season) 2024 04/17/2021, 08/19/2020, 07/22/2020 Colorectal Cancer Screening: Colonoscopy 03/05/2024 Influenza Vaccine (#1) 2025 , 04/17/2020, 03/27/2019 Hypertension/CHF/CAD Annual BMP Blood Test 11/06/2025 11/06/2024, 01/24/2024, 01/24/2024 Falls Risk Assessment 12/05/2025 12/05/2024 , 12/05/2024 Medicare Annual Wellness Visit 12/05/2025 12/05/2024 Social Influencers of Health Screening 12/05/2025 12/05/2024 Breast Cancer Screening 09/10/2026 09/10/2024 Cholesterol Screening (Lipid Panel) 12/23/2029 12/23/2024, 01/24/2024, 01/24/2024 DTaP,Tdap,and Td Vaccines (3 - Td or Tdap) 03/15/2034 03/15/2024, 11/26/2010 Osteoporosis Screening (Bone Density Screening) 09/10/2034 09/10/2024 Hepatitis C Screening Completed 01/24/2024 Pneumococcal Vaccine: 50+ Years Completed 03/15/2024 Depression Screening Completed 12/05/2024 HIB Vaccines Aged Out No longer eligi ble based on patient's age to complete this topic HPV Vaccines Aged Out No longer eligi ble based on patient's age to complete this topic Hepatitis A Vaccines Discontinued IPV Vaccines Aged Out No longer eligi [...] 20 months Aged Out No longer eligible based on patient's age to complete this topic Varicella Vaccines Aged Out No longer eligible based on patient's age to complete this topic Procedures Procedure Name Priority Date/Time Associated Diagnosis Comments HEMOGLOBIN A1C Routine 12/23/2024 12:23 PM EDT Prediabetes LIPID PANEL WITH REFLEX TO DIRECT LDL Routine 12/23/2024 12:23 PM EDT Mixed hyperlipidemia VITAMIN D 25 HYDROXY Routine 12/23/2024 12:23 PM EDT Vitamin D deficiency BILIRUBIN DUPLICATE PROCEDURE TO ORDER Routine 11/06/2024 2:00 PM EDT Fatty liver CBC WITH AUTO DIFFERENTIAL Routine 11/06/2024 2:00 PM EDT Primary hypertension Restless leg syndrome CBC AND DIFFERENTIAL Routine 11/06/2024 2:00 PM EDT Primary hypertension Restless leg syndrome COMPREHENSIVE METABOLIC PANEL Routine 11/06/2024 2:00 PM EDT Primary hypertension MAGNESIUM Routine 11/06/2024 2:00 PM EDT Primary hypertension IRON AND TIBC Routine 11/06/2024 2:00 PM EDT Primary hypertension Restless leg syndrome Other symptoms and signs concerning food and fluid intake FERRITIN Routine 11/06/2024 2:00 PM EDT Primary hypertension Restless leg syndrome Other symptoms and signs concerning food and fluid intake VITAMIN B12 Routine 11/06/2024 2:00 PM EDT Primary hypertension Restless leg syndrome VITAMIN D 25 HYDROXY Routine 11/06/2024 2:00 PM EDT Primary hypertension Vitamin D deficiency CONTINUOUS EEG Routine 10/31/2024 11:29 AM EDT Epilepsy, unspecified, not intractable, without status epilepticus (CMS/HCC V24, CMS/HCC V28) CONTINUOUS EEG Routine 10/30/2024 11:38 AM EDT Epilepsy, unspecified, not intractable, without status epilepticus (CMS/HCC V24, CMS/HCC V28) CONTINUOUS EEG Routine 10/29/2024 12:13 PM EDT Epilepsy, unspecified, not intractable, without status epilepticus (CMS/HCC V24, CMS/HCC V28) BD BONE DENSITY DXA AXIAL SKELETON Routine 09/10/2024 11:04 AM EDT Osteoporosis screening MG MAMMO DIGITAL SCREENING W RANDELL BILAT Routine 09/10/2024 10:34 AM EDT Encounter for screening mammogram for malignant neoplasm of breast HM HEPATITIS C SCREENING Routine 01/24/2024 from Last 3 Months or Most Recently Relevant to Health Maintenance Results * Lipid panel with reflex to direct LDL (12/23/2024 12:23 PM EDT) Cholesterol 143 0 - 200 mg/dL LAB CHEMISTRY METHOD 12/23/2024 4:57 PM EDT [facility] Triglycerides 96 0 - 150 mg/dL LAB CHEMISTRY METHOD 12/23/2024 4:57 PM EDT [facility] HDL 59 >=40 mg/dL LAB CHEMISTRY METHOD 12/23/2024 4:57 PM EDT [facility] LDL Calculated 65 0 - 100 mg/dL LAB CHEMISTRY METHOD 12/23/2024 4:57 PM EDT [facility] VLDL Cholesterol Nicola 19.2 mg/dL LAB CHEMISTRY METHOD 12/23/2024 4:57 PM EDT [facility] Non HDL Chol. (LDL+VLDL) 84 <145 mg/dL LAB CHEMISTRY METHOD 12/23/2024 4:57 PM EDT [facility] Chol/HDL Ratio 2.4 0.0 - 4.4 LAB CHEMISTRY METHOD 12/23/2024 4:57 PM EDT [facility] Blood Venous blood specimen / Unknown Venipuncture / Unknown 12/23/2024 12:23 PM EDT 12/23/2024 12:24 PM EDT Luis Vazquez MD LAB BLOOD ORDERA BLES Final Result [facility] [address] [place] [address], [place] [phone] * Vitamin D 25 hydroxy (12/23/2024 12:23 PM EDT) Only the most recent of2 resultswithin the time period is included. Pathologist [facility] Vit D, 25-Hydroxy 44.2 30.0 - 80.0 ng/mL LAB CHEMISTRY METHOD 12/23/2024 6:17 PM EDT [facility] Blood Venous blood specimen / Unknown Venipuncture / Unknown 12/23/2024 12:23 PM EDT 12/23/2024 12:24 PM EDT Luis Vazquez MD LAB BLOOD ORDERA BLES Final Result Performing Organization Address City/[facility]/ZIP Co de Phone Number [facility] [address] [place] [address], * Hemoglobin A1c (12/23/2024 12:23 PM EDT) [facility] Hemoglobin A1C 5.7 <6.5 % LAB CHEMISTRY METHOD 12/23/2024 7:04 PM EDT [facility] Mean Bld Glu Estim. 117 mg/dL LAB CHEMISTRY METHOD 12/23/2024 7:04 PM EDT [facility] Blood Venous blood specimen / Unknown Venipuncture / Unknown 12/23/2024 12:23 PM EDT 12/23/2024 12:24 PM EDT Luis Vazquez MD LAB BLOOD ORDERA BLES Final Result [facility] [address] [place] [address], [place] [phone] * Bilirubin duplicate procedure to order (11/06/2024 2:00 PM EDT) [facility] Total Bilirubin 0.5 0.0 - 1.4 mg/dL LAB CHEMISTRY METHOD 11/06/2024 5:44 PM EDT [facility] Bilirubin, Direct 0.2 0.0 - 0.3 mg/dL LAB CHEMISTRY METHOD 11/06/2024 5:44 PM EDT [facility] Bilirubin, Indirect 0.3 0.0 - 1.1 mg/dL LAB CHEMISTRY METHOD 11/06/2024 5:44 PM EDT [facility] Blood Venous blood specimen / Unknown Venipuncture / Unknown 11/06/2024 2:00 PM EDT 11/06/2024 2:00 PM EDT Martin ASHER LAB BLOOD ORDERABLES Final R esult [facility] [address] [place] [address], * CBC auto differential (11/06/2024 2:00 PM EDT) [facility] WBC 7.3 4.8 - 10.8 K/mcL LAB HEMETOLOGY METHOD 11/06/2024 5:29 PM EDT [facility] RBC 4.80 3.80 - 4.80 M/mcL LAB HEMETOLOGY METHOD 11/06/2024 5:29 PM EDT [facility] Hemoglobin 14.7 11.5 - 16.0 g/dL LAB HEMETOLOGY METHOD 11/06/2024 5:29 PM EDT [facility] Hematocrit 45.0 35.0 - 47.0 % LAB HEMETOLOGY METHOD 11/06/2024 5:29 PM EDT [facility] MCV 94.7 79.0 - 98.0 FL LAB HEMETOLOGY METHOD 11/06/2024 5:29 PM EDT [facility] MCH 30.9 27.0 - 32.0 pcg LAB HEMETOLOGY METHOD 11/06/2024 5:29 PM EDT [facility] MCHC 32.7 32.0 - 37.0 g/dL LAB HEMETOLOGY METHOD 11/06/2024 5:29 [facility] RDW 13.4 11.0 - 15.0 % LAB HEMETOLOGY METHOD 11/06/2024 5:29 PM [facility] Platelets 272 130 - 400 K/mcL LAB HEMETOLOGY METHOD 11/06/2024 5:29 PM [facility] MPV 10.4 7.0 - 11.0 FL LAB HEMETOLOGY METHOD 11/06/2024 5:29 PM [facility] NRBC 0.0 <1.0 % LAB HEMETOLOGY METHOD 11/06/2024 5:29 PM [facility] NRBC Absolute 0.00 <0.10 K/mcL LAB HEMETOLOGY METHOD 11/06/2024 5:29 PM [facility] Neutrophils Relative 58.8 % LAB HEMETOLOGY METHOD 11/06/2024 5:29 PM [facility] Lymphocytes Relative 32.2 % LAB HEMETOLOGY METHOD 11/06/2024 5:29 PM [facility] Monocytes Relative 7.3 % LAB HEMETOLOGY METHOD 11/06/2024 5:29 PM [facility] Eosinophils Relative 0.6 % LAB HEMETOLOGY METHOD 11/06/2024 5:29 PM [facility] Basophils Relative 0.8 % LAB HEMETOLOGY METHOD 11/06/2024 5:29 PM [facility] Immature Granulocytes Relative 0.3 % LAB HEMETOLOGY METHOD 11/06/2024 5:29 PM [facility] Neutrophils Absolute 4.28 1.50 - 7.00 K/mcL LAB HEMETOLOGY METHOD 11/06/2024 5:29 PM EDT [facility] Lymphocytes Absolute 2.34 1.00 - 5.00 K/[facility] LAB HEMETOLOGY METHOD 11/06/2024 5:29 PM EDT [facility] Monocytes Absolute 0.53 0.20 - 1.00 K/[facility] LAB HEMETOLOGY METHOD 11/06/2024 5:29 PM EDT [facility] Eosinophils Absolute 0.04 0.00 - 0.50 K/[facility] LAB HEMETOLOGY METHOD 11/06/2024 5:29 PM EDT [facility] Basophils Absolute 0.06 0.00 - 0.20 K/[facility] LAB HEMETOLOGY METHOD 11/06/2024 5:29 PM EDT [facility] Immature Granulocytes Absolute 0.02 0.00 - 0.03 K/[facility] LAB HEMETOLOGY METHOD 11/06/2024 5:29 PM EDT [facility] Blood Venous blood specimen / Unknown Venipuncture / Unknown 11/06/2024 2:00 PM EDT 11/06/2024 2:00 PM EDT Leela ASHER LAB BLOOD ORDERABLES Final Re sult [facility] [address] [place] [address], * Iron and TIBC (11/06/2024 2:00 PM EDT) Iron 103 40 - 150 mcg/dL LAB CHEMISTRY METHOD 11/06/2024 5:44 PM EDT [facility] TIBC 407 250 - 450 mcg/dL LAB CHEMISTRY METHOD 11/06/2024 5:44 PM EDT [facility] Iron Saturation 25 15 - 50 % LAB CHEMISTRY METHOD 11/06/2024 5:44 PM EDT [facility] Blood Venous blood specimen / Unknown Venipuncture / Unknown 11/06/2024 2:00 PM EDT 11/06/2024 2:00 PM EDT us Leela ASHER LAB BLOOD ORDERABLES Final Re sult Performing Organization Address [facility]/ZIP Co de Phone Number [facility] [address] [place] [address], [place] [phone] * Magnesium (11/06/2024 2:00 PM EDT) [facility] Magnesium 2.1 1.9 - 2.6 mg/dL LAB CHEMISTRY METHOD 11/06/2024 5:44 PM EDT [facility] Blood Venous blood specimen / Unknown Venipuncture / Unknown 11/06/2024 2:00 PM EDT 11/06/2024 2:00 PM EDT us Leela ASHER LAB BLOOD ORDERABLES Final Re sult Performing Organization Address [facility]/ZIP Co de Phone Number [facility] [address] [place] [address], [place] [phone] * Ferritin (11/06/2024 2:00 PM EDT) [facility] Ferritin 74 8 - 252 ng/mL LAB CHEMISTRY METHOD 11/06/2024 6:06 PM EDT [facility] Blood Venous blood specimen / Unknown Venipuncture / Unknown 11/06/2024 2:00 PM EDT 11/06/2024 2:00 PM EDT us Leela ASHER LAB BLOOD ORDERABLES Final Re sult [facility] [address] [place] [address], [place] [phone] * Vitamin B12 (11/06/2024 2:00 PM EDT) [facility] Vitamin B-12 512 250 - 900 pcg/mL LAB CHEMISTRY METHOD 11/06/2024 6:06 PM [facility] Blood Venous blood specimen / Unknown Venipuncture / Unknown 11/06/2024 2:00 PM EDT 11/06/2024 2:00 PM EDT Leela ASHER LAB BLOOD ORDERABLES Final Re sult [facility] [address] [place] [address], [place] [phone] * (ABNORMAL) Comprehensive metabolic panel (11/06/2024 2:00 PM EDT) [facility] Sodium 137 133 - 145 mmol/L LAB CHEMISTRY METHOD 11/06/2024 6:06 PM [facility] Potassium 3.9 3.5 - 5.5 mmol/L LAB CHEMISTRY METHOD 11/06/2024 6:06 PM [facility] Chloride 104 96 - 110 mmol/L LAB CHEMISTRY METHOD 11/06/2024 6:06 PM [facility] CO2 27 21 - 32 mmol/L LAB CHEMISTRY METHOD 11/06/2024 6:06 PM [facility] Anion Gap 6 3 - 11 LAB CHEMISTRY METHOD 11/06/2024 6:06 PM [facility] Glucose 99 70 - 100 mg/dL LAB CHEMISTRY METHOD 11/06/2024 6:06 PM [facility] BUN 12 5 - 25 mg/dL LAB CHEMISTRY METHOD 11/06/2024 6:06 PM [facility] Creatinine 0.62 0.50 - 1.10 mg/dL LAB CHEMISTRY METHOD 11/06/2024 6:06 PM [facility] eGFR 97 >=60 mL/min/1. 73m2 LAB CHEMISTRY METHOD 11/06/2024 6:06 PM EDT [facility] Comment:Calculation based on the Chronic Kidney Disease Epidemiology Collaboration (CKD-EPI) equation refit without adjustment for race. BUN/Creatinine Ratio 19.4 LAB CHEMISTRY METHOD 11/06/2024 6:06 PM [facility] Calcium 9.7 8.5 - 10.5 mg/dL LAB CHEMISTRY METHOD 11/06/2024 6:06 PM [facility] AST (SGOT) 20 10 - 42 unit/L LAB CHEMISTRY METHOD 11/06/2024 6:06 PM [facility] ALT (SGPT) 30 10 - 60 unit/L LAB CHEMISTRY METHOD 11/06/2024 6:06 PM [facility] Alkaline Phosphatase 130(H) 42 - 121 unit/L LAB CHEMISTRY METHOD 11/06/2024 6:06 PM [facility] Total Protein 7.7 6.0 - 8.0 g/dL LAB CHEMISTRY METHOD 11/06/2024 6:06 PM [facility] Albumin 3.9 3.2 - 5.0 g/dL LAB CHEMISTRY METHOD 11/06/2024 6:06 PM [facility] Total Bilirubin 0.5 0.0 - 1.4 mg/dL LAB CHEMISTRY METHOD 11/06/2024 6:06 PM [facility] Blood Venous blood specimen / Unknown Venipuncture / Unknown 11/06/2024 2:00 PM EDT 11/06/2024 2:00 PM EDT us Leela ASHER LAB BLOOD ORDERABLES Final Re sult [facility] [address] [place] [address], * Continuous EEG (10/31/2024 11:29 AM EDT) Narrative Regina Lundberg MD - 11/04/2024 3:36 PM EDT Table formatting from the original result was not included. Images from the original result were not included. [facility] [address] [place] [id number] Ambulatory Electroencephalogram Report Date of service: 10/31/24 Patient Name: Aroldo Rosales Date of : 1955 Age: 69 y.o. Gender: female Procedure Order: Continuous EEG Ordering Provider: Regina Lundberg MD Reason for Exam: Order Questions Answers Type of monitoring Unmonitored With video? No Diagnosis listed on Order: Epilepsy, unspecified, not intractable, without status epilepticus ([facility] V24, [facility] V28) Procedure Performed: 48-hour ambulatory EEG EEG Technical Description: This study was performed using the 10-20 [employer] Electrode System placement and single channel EKG electrode on Trex recorder. Settings included: low frequency filter of 1 Hz, high frequency filter of 70 Hz, sensitivity of 7 uV/mm, a display speed of 30 mm/sec, with a 60 Hz notched filter applied as appropriate. Modifications in these parameters were made as necessary for further waveform resolution. Video Recording: No Description: This is a 16 channel 48-hour ambulatory EEG. Patient kept a diary of each day and did not report any significant events. HDF EEG was separately reviewed and included wakefulness and sleep. Patient transition into different stages of sleep during both days. During wakefulness symmetric alpha posteriorly lower amplitude faster anteriorly was noted. During both days intermittently sometimes left and sometimes right temporal sharp waves were noted. Impression: Abnormal EEG suggestive of bitemporal irritability. us Regina Lundberg MD NEUROLOGY ORDERABLES Final Result * Continuous EEG (10/30/2024 11:38 AM EDT) Narrative Regina Lundberg MD - 12/31/2024 4:49 PM EDT Table formatting from the original result was not included. Images from the original result were not included. [facility] [address] [place] [address] Ambulatory Electroencephalogram Report Date of service: 10/30/24 Patient Name: Aroldo Rosales Date of : 1955 Age: 69 y.o. Gender: female Procedure Order: Continuous EEG Ordering Provider: Regina Lundberg MD Reason for Exam: Order Questions Answers Type of monitoring Unmonitored With video? No Diagnosis listed on Order: Epilepsy, unspecified, not intractable, without status epilepticus ([facility] V24, [facility] V28) This is a recurrent day study. Please see report with final results. us Regina Lundberg MD NEUROLOGY ORDERABLES Final Result * Continuous EEG (10/29/2024 12:13 PM EDT) Narrative Regina Lundberg MD - 11/04/2024 3:34 PM EDT Table formatting from the original result was not included. Images from the original result were not included. [facility] [address] [place] [address] Ambulatory Electroencephalogram Report Date of service: 10/29/24 Patient Name: Aroldo Rosales Date of : 1955 Age: 69 y.o. Gender: female Procedure Order: Continuous EEG Ordering Provider: Regina Lundberg MD Reason for Exam: Order Questions Answers Type of monitoring Unmonitored With video? No Diagnosis listed on Order: Epilepsy, unspecified, not intractable, without status epilepticus ([facility] V24, [facility] V28) This is a recurrent day study. Please see report with final results. Regina Lundberg MD NEUROLOGY ORDERABLES Final Result * BD Bone Density DXA Axial Skeleton (09/10/2024 11:04 AM EDT) Anatomical Region Laterality Modality Wrist, Hip, L-spine Bone Densito metry 09/10/2024 11:2 7 AM EDT Impressions 09/10/2024 11:31 AM EDT Impression: This patient is considered to have osteopenia by WHO criteria. FRAX not reported because patient has history of prior hip or vertebral fracture. [facility] Department of Internal Medicine recommends using [...] alternative screening schedule based on john Ordonez., [facility] June 16, 2011 for patients with osteopenia (based on hip BMD T-score) is as follows: * advanced osteopenia (T scores [...] Signed Date: 09/10/2024 11:31 ET Workstation ID: [id number] Transcribed By: Self Edit Transcribed Date: 09/10/2024 11:27 ET Narrative 09/10/2024 11:31 AM EDT BONE DENSITY (DEXA) Lumbar Spine T-score is [...] of prior hip or vertebral fracture. [facility] Department of Internal Medicine recommendsusing National [...] FRAX. Optional alternative screening schedule based on katya Ordonez al., NEJMJanuary 2011 for patients with osteopenia (based on [...] Signed Date: 09/10/2024 11:31 ET Workstation ID: [id number] Transcribed By: Self Edit Transcribed Date: 09/10/2024 11:27 ET Luis Vazquez MD IMG DXA PROCEDUR ES Final Result * MG Mammo Digital Screening w Randell bilat (09/10/2024 10:34 AM EDT) Anatomical Region Laterality Modality Breast Bilateral Mammography 09/10/2024 2:16 PM EDT Impressions 09/10/2024 2:23 PM EDT Benign. BI-RADS CATEGORY: 1 - NEGATIVE RECOMMENDATION: Screening bilateral mammogram is recommended in 1 year. Mammo Location: [facility], [address] [place] [address], [id number], . -------- FINAL REPORT -------- Dictated By: Emily Perdomo Dictated Date: 09/10/2024 14:16 ET Assigned Physician: Emily Perdomo Reviewed and Electronically Signed By: Emily Perdomo Signed Date: 09/10/2024 14:23 ET Workstation ID: [id number] Transcribed By: Self Edit Transcribed Date: 09/10/2024 14:16 ET Narrative 09/10/2024 2:23 PM EDT CLINICAL: 69 years old, Female, routine annual exam. COMPARISON: Mammograms dating back to 03/09/2021 with most recent of 07/12/2023. TECHNIQUE: Bilateral MLO and CC views were obtained digitally with 3-D mammogram (digital breast tomosynthesis). Computer-aided detection was utilized in evaluation of this exam (CAD). FINDINGS: There is no evidence of suspicious mass or architectural distortion. No worrisome calcifications are evident. There has been no significant change from prior exam(s). BREAST DENSITY: B - [...] is recommended in 1 year. Mammo Location: [facility], [address] [place] [address], [id number], . -------- FINAL REPORT -------- Dictated By: Emily Perdomo Dictated Date: 09/10/2024 14:16 ET Assigned Physician: Emily Perdomo Reviewed and Electronically Signed By: Emily Perdomo Signed Date: 09/10/2024 14:23 ET Workstation ID: [id number] Transcribed By: Self Edit Transcribed Date: 09/10/2024 14:16 ET Luis Vazquez MD [facility] BI PROCEDURE S Final Result * Hepatitis C Screening (01/24/2024) Hepatitis C Screening abstracted us Historical Provider HEALTH MAINTENANCE Final Result from Last 3 Months or Most Recently Relevant to Health Maintenance Insurance [employer] 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
[2025-01-06 09:09] LABS: Platelet Count 209 X10*3/uL (160-400)
[2025-01-06 09:18] LABS: Hemoglobin A1C 130.2207 umol/L; Total Hemoglobin (HGBA1C) 3631.4730 umol/L
[2025-01-06 09:38] LABS: Alanine Aminotransferase 24 U/L (0-31); Aspartate Amino Transferase 25 U/L (5-31); Cholesterol 142 mg/dL (<200); Estimated Glomerular Filt Rate > 60; HDL Cholesterol 51 mg/dL (>40); Triglycerides 86 mg/dL (<150)
== END 2025-01-06 08:29 | disposition home or self-care (01) ==
LOC: HO.LAB 08:28
PROVIDERS: PCP Internal Medicine; Visit Provider Physician Assistant Medical
DX: E16.2 Hypoglycemia, unspecified (principal); E78.5 Hyperlipidemia, unspecified
CPT/HCPCS: 36415; 80061; 82565; 83036; 84443; 84450; 84460; 85049

== ENCOUNTER 2025-01-07 10:43 | Outpatient (AMB) | payer OTHER, SELFPAY ==
[2025-01-07 10:45] VITALS: BP 132/76; PULSE 66; O2SAT 98; BMI 29.7
--- NOTE | 2025-01-07 10:45 | A.OFFVIS_ITS ---
Vital Signs 01/07/25 10:45 Height 5 ft 3 in Weight 167 lb 8.821 oz BMI 29.7 BP 132/76 Blood Pressure Location Rt brachial Position Sitting Pulse 66 Pulse Source Pulse Oximeter Pulse Oximetry (%) 98 Oxygen Delivery Method Room Air Intake Visit Reasons: Pre-DM Intake Note: Patient present today for Hypoglycemia follow up. Random Glucose: 134 mg/dL Phosphoric Acid Supervisor Required: No Accompanied by: Self / Same As Patient Allergies prednisone (PREDNISONE) Allergy (Intermediate, Verified 01/07/25 10:49) anxiety doxycycline (DOXYCYCLINE) Allergy (Unknown, Verified 01/07/25 10:49) NAUSEA & VOMITING, vomiting Medication List - Last Reconciled 01/07/25 by LAKESHIA Keyes acetaminophen 500 mg PO Q6H PRN atorvastatin 20 mg PO DAILY bacitracin 1 appl topical BID [bed rail As directed] blood sugar diagnostic (FreeStyle Lite Strips) use to check blood sugar five times daily for hypoglycemia blood-glucose meter (Blood Glucose Monitoring kit) As directed blood-glucose sensor (FreeStyle Angela 3 Plus Sensor device) Apply 1 new sensor every 15 days as directed to monitor blood glucose continuously. blood-glucose,liquor tester,cont (FreeStyle Angela 3 [place]) Use daily to monitor blood glucose levels continuously. cetirizine 10 mg PO DAILY PRN cholecalciferol (vitamin D3) 50 mcg PO DAILY glucagon 3 mg/actuation (Baqsimi) 3 mg intranasal ONCE glucose (Dex4 Glucose Quick Dissolve) 16 grams (4 x 4 gram) PO Q15M PRN lancets (FreeStyle Lancets) Use to check blood glucose 5 times daily for hypoglycemia. levetiracetam (Keppra) 250 mg PO BID lisinopril 2.5 mg PO DAILY naproxen (Naprosyn) 500 mg PO BID PRN pramipexole 2.5 mg PO BEDTIME tramadol 50 mg PO Q8H PRN HPI Comments Details: This is a 69-year-old female with a past medical history of obesity, hyperlipidemia, prediabetes, hypertension and chronic lower back pain presenting for a follow up appointment for hypoglycemia and prediabetes. She was recently diagnosed with a seizure disorder. Her neurologist is Dr. Lundberg. She is taking Keppra now. She is not driving. Reviewed CGM data for the past 14 days Average glucose 97 GMI 5.6% Time in range 97% 3% hypoglycemia 0% hypoglycemia Patient had appointment at [facility] on 05/31/24. She had follow up lab work and no further evaluation was required for hypoglycemia. As you recall she had an episode of loss of consciousness secondary to hypoglycemia with blood sugar in the 40s. Previously she was experiencing hypoglycemia without warning symptoms until her blood sugar was quite low. She met with the elementary educator and dietitian. She treats low blood sugar with OJ or something else sugary. This usually occurs if she goes more than 4 hours without eating. She has a prescription for glucose tablets and Baqsimi, but she has not use them. She is feeling well and very happy with her weight loss. She lost another 10 lb. Her goal is to get to 150lbs. Her hemoglobin A1c today is 5.4%. Fibrosis-for index is 1.66 based on the patient's labs today excluding advanced fibrosis. ROS: Constitutional: No unexplained weight loss, fever, chills, fatigue or night sweats. Eyes: No vision changes Respiratory: No shortness of breath Cardiovascular: No chest pain Gastrointestinal: No anorexia, nausea, vomiting or diarrhea. No abdominal pain today or blood in stool. Neurologic: See HPI Endocrine: No cold or heat intolerance. No polyuria or polydipsia. Physical exam: Constitutional: Alert, in no distress. Respiratory: Clear to auscultation. Cardiovascular: S1 S2 regular. No murmurs. Neurologic: No focal neurological deficits. Extremities: Warm and well perfused. No clubbing, cyanosis or edema. Psychiatric: Normal mood and affect [facility] Medical History (Updated 01/07/25 @ 11:28 by LAKESHIA Keyes) Seizure disorder Prediabetes Adrenal gland anomaly Hypoglycemia Breast calcification, left Obesity Post-menopausal Screening for breast cancer Screening for diabetes mellitus Acute sinusitis Hyperlipidemia Hypertension Surgical History History of surgery History of lateral meniscus repair of left knee History of tooth extraction History of hip surgery History of cholecystectomy Family History Father Cerebral aneurysm Mother Stroke Renal failure Maternal Grandmother Glaucoma Brother Diabetes Social History Housing: Apartment Alcohol intake: never Patient Tobacco Use Status: Former Tobacco user Tobacco use type: Cigarette e-Cigarette/Vaping Use: Never Used Second Hand Smoke Exposure: No Substance Use Type: Marijuana service: No Current occupational status: retired Cognitive needs: No Hearing needs: No Vision needs: No Physical Exam Vital Signs: Last Vital Signs Pulse 66 01/07/25 10:45 BP 132/76 01/07/25 10:45 Pulse Ox 98 01/07/25 10:45 Oxygen Delivery Method Room Air 01/07/25 10:45 BMI result Body Mass Index 29.7 Office Procedures Glucose Monitoring Details Details: See [facility] [address] - Glucose monitoring, continuous-physician I&R Procedure code (CPT) selection complete Results Reviewed Results Reviewed: Laboratory Last Values Glucose (Clinic) 131 mg/dL (60-115) H 01/07/25 10:50 Laboratory Tests 01/06/25 08:52 Plt Count 209 Creatinine 0.60 Estimated GFR > 60 Hemoglobin A1c % 5.4 AST 25 ALT 24 Triglycerides 86 Cholesterol 142 LDL Cholesterol, Calc 74 HDL Cholesterol 51 TSH 1.30 Assessment & Plan Assessment & Plan (1) Hypoglycemia: Code(s): E16.2 - Hypoglycemia, unspecified Category: Medical (2) Prediabetes: Code(s): R73.03 - Prediabetes Category: Medical Plan In summary this is a 69-year-old female with a past medical history of prediabetes, obesity and hypoglycemia presenting for follow up. She is doing well overall. She is following dietary guidelines. She was seen at [facility] for evaluation of hypoglycemia which is not felt to be pathologic. We discussed treatment of hypoglycemia again in detail. She has written instruction and glucose tablets and a prescription of Baqsimi. She is using a continuous glucose monitor which is medically necessary since she has a history of severe, problematic, asymptomatic hypoglycemia. We reviewed all of her lab work from today. She is pleased with the results. Her medication list has been updated. She will follow up with me in 6 months or sooner as needed. Orders: Orders AMB Glucose Monitoring Today LAKESHIA Keyes E11.9 - Type 2 diabetes mellitus without complications Medications: New buspirone 5 mg PO BID LAKESHIA Keyes Changed From lisinopril 5 mg PO DAILY 30 tabs 3RF To lisinopril 2.5 mg PO DAILY Jt Mancera MD Coding Level of Care Code Est Pt Level 4 (05979) Diagnoses Hypoglycemia E16.2 Prediabetes R73.03 CPT Codes Details - CPT: 46676 - Glucose monitoring, continuous-physician I&R ([id number])
[2025-01-07 10:57] LABS: Glucose, Whole Blood 131 mg/dL (60-115)
--- OUTSIDE RECORDS SUMMARY | 2025-01-07 11:50 | XMS_ITS | Clinical Summary ---
Author Organization [employer] Address [address] [place] [address] Care Team Providers Care Arts Administrator Or Manager Name Role Phone Unavailable Primary Care Provider [...] Most Recently Relevant to Health Maintenance [place] [address] [place] [address]
--- OUTSIDE RECORDS SUMMARY | 2025-01-07 11:50 | XMS_ITS | Clinical Summary ---
Author Organization [facility] [address] [facility] Address [address] [place] [address] Phone Care Team Providers Care Senior Design Engineering Specialist Name Role Phone Luis Vazquez MD Primary [...] levETIRAcetam (KEPPRA) 250 mg tabletIndications:S eizure disorder ([facility] V24, [facility] V28) Take 1 tablet (250 mg total) [...] Problem Noted Date Diagnosed Date Seizure disorder ([facility] V24, [facility] V28) 11/26 Assessment & Plan (12/05/2024 12:06 [...] CT head, facial bones, cervical spine 01/28/24 ([facility] s/p mechanical fall) 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 Continue lisinopril 2.5 mg daily Edentulous maxilla 03/29/2023 Encounters Date Type Department Care Team Description 12/26/2024 Telephone Adult Medicine [address] [phone] Luis Vazquez MD Referral (Pt notified ) 12/05/2024 9:00 AM EDT Office Visit [address] [phone] Luis Vazquez MD Annual wellness visit (Primary Dx); Mixed hyperlipidemia; Prediabetes; Primary hypertension; Restless leg syndrome; Generalized anxiety disorder; Mild depression; Seizure disorder (CMS/HCC V24, CMS/HCC V28); Colon cancer screening; Osteopenia of right hip; Vitamin D deficiency 11/20/[address] [phone] Magda Chery RN 11/06/2024 1:15 PM EDT Office Visit [address] [phone] Leela Faustin PA Primary hypertension (Primary Dx); Hypoglycemia; Restless leg syndrome; Vitamin D deficiency; Other symptoms and signs concerning food and fluid intake; Fibromyalgia 10/31/2024 11:00 AM EDT - 10/31/2024 11:59 PM EDT Hospital Encounter [facility] Neurodiagnostic [address] [place] [phone] Discharge Disposition: Home or Self Care 10/30/2024 10:56 AM EDT - 10/30/2024 11:59 PM EDT Hospital Encounter [facility] Neurodiagnostic [address] [place] [phone] Discharge Disposition: Home or Self Care 10/29/2024 10:00 AM EDT - 10/29/2024 11:59 PM EDT Hospital Encounter [facility] Neurodiagnostic [address] [place] [phone] Discharge Disposition: Home or Self Care 10/07/[address] [phone] Leela Faustin PA from Last 3 Months [...] DX:Atheroscleros is; COMMENT: CT head/facial bones/Cspine 01/28/24 [facility] (seen at ER s/p mechanical fall) - [...] Info) Description 02/19/2025 1:30 PM EDT Appointment [facility] Endoscopy [address] [place] [phone] Atif Lopez MD [address] [address] 03/07/2025 10:30 AM EDT Office Visit Adult Medicine [address] [phone] Leela Faustin PA [address] [place] [address] 09/15/2025 9:20 AM EDT Appointment Radiology Department - [address] [phone] Health Maintenance Due Date Last Done Comments [...] LAB CHEMISTRY METHOD 12/23/2024 4:57 PM EDT [facility] Triglycerides 96 0 - 150 mg/dL LAB CHEMISTRY METHOD 12/23/2024 4:57 PM EDT [facility] HDL 59 >=40 mg/dL LAB CHEMISTRY METHOD 12/23/2024 4:57 PM EDT [facility] LDL Calculated 65 0 - 100 mg/dL LAB CHEMISTRY METHOD 12/23/2024 4:57 PM EDT [facility] VLDL Cholesterol Nicola 19.2 mg/dL LAB CHEMISTRY METHOD 12/23/2024 4:57 PM EDT [facility] Non HDL Chol. (LDL+VLDL) 84 <145 mg/dL LAB CHEMISTRY METHOD 12/23/2024 4:57 PM EDT [facility] Chol/HDL Ratio 2.4 0.0 - 4.4 LAB CHEMISTRY METHOD 12/23/2024 4:57 PM EDT [facility] Blood Venous blood specimen / Unknown Venipuncture / Unknown 12/23/2024 12:23 PM EDT 12/23/2024 12:24 PM EDT Luis Vazquez MD LAB BLOOD ORDERA BLES Final Result [facility] [address] [place] [address], [place] [phone] * Vitamin D 25 hydroxy (12/23/2024 12:23 PM EDT) Only the most recent of2 resultswithin the time period is included. Pathologist [facility] Vit D, 25-Hydroxy 44.2 30.0 - 80.0 ng/mL LAB CHEMISTRY METHOD 12/23/2024 6:17 PM EDT [facility] Blood Venous blood specimen / Unknown Venipuncture / Unknown 12/23/2024 12:23 PM EDT 12/23/2024 12:24 PM EDT Luis Vazquez MD LAB BLOOD ORDERA BLES Final Result Performing Organization Address City/[facility]/ZIP Co de Phone Number [facility] [address] [place] [address], * Hemoglobin A1c (12/23/2024 12:23 PM EDT) [facility] Hemoglobin A1C 5.7 <6.5 % LAB CHEMISTRY METHOD 12/23/2024 7:04 PM EDT [facility] Mean Bld Glu Estim. 117 mg/dL LAB CHEMISTRY METHOD 12/23/2024 7:04 PM EDT [facility] Blood Venous blood specimen / Unknown Venipuncture / Unknown 12/23/2024 12:23 PM EDT 12/23/2024 12:24 PM EDT Luis Vazquez MD LAB BLOOD ORDERA BLES Final Result [facility] [address] [place] [address], [place] [phone] * Bilirubin duplicate procedure to order (11/06/2024 2:00 PM EDT) [facility] Total Bilirubin 0.5 0.0 - 1.4 mg/dL LAB CHEMISTRY METHOD 11/06/2024 5:44 PM EDT [facility] Bilirubin, Direct 0.2 0.0 - 0.3 mg/dL LAB CHEMISTRY METHOD 11/06/2024 5:44 PM EDT [facility] Bilirubin, Indirect 0.3 0.0 - 1.1 mg/dL LAB CHEMISTRY METHOD 11/06/2024 5:44 PM EDT [facility] Blood Venous blood specimen / Unknown Venipuncture / Unknown 11/06/2024 2:00 PM EDT 11/06/2024 2:00 PM EDT Martin ASHER LAB BLOOD ORDERABLES Final R esult [facility] [address] [place] [address], * CBC auto differential (11/06/2024 2:00 PM EDT) [facility] WBC 7.3 4.8 - 10.8 K/mcL LAB HEMETOLOGY METHOD 11/06/2024 5:29 PM EDT [facility] RBC 4.80 3.80 - 4.80 M/mcL LAB HEMETOLOGY METHOD 11/06/2024 5:29 PM EDT [facility] Hemoglobin 14.7 11.5 - 16.0 g/dL LAB HEMETOLOGY METHOD 11/06/2024 5:29 PM EDT [facility] Hematocrit 45.0 35.0 - 47.0 % LAB HEMETOLOGY METHOD 11/06/2024 5:29 PM EDT [facility] MCV 94.7 79.0 - 98.0 FL LAB HEMETOLOGY METHOD 11/06/2024 5:29 PM EDT [facility] MCH 30.9 27.0 - 32.0 pcg LAB HEMETOLOGY METHOD 11/06/2024 5:29 PM EDT [facility] MCHC 32.7 32.0 - 37.0 g/dL LAB HEMETOLOGY METHOD 11/06/2024 5:[facility] R[facility] 13.4 11.0 - 15.0 % LAB [facility]OLOGY METHOD [facility]/06[facility]2024 5:[facility] Platelets 272 130 - 400 K/mcL LAB [facility]EMETOLOGY METHOD 11/06/2024 5:[facility] MPV 10.4 7.0 - 11.0 FL LAB HEMETOLOGY METHOD 11/06/2024 5:29 PM [facility] NRBC 0.0 <1.0 % LAB HEMETOLOGY METHOD 11/06/2024 5:29 PM [facility] NRBC Absolute 0.00 <0.10 K/mcL LAB HEMETOLOGY METHOD 11/06/2024 5:29 PM [facility] Neutrophils Relative 58.8 % LAB HEMETOLOGY METHOD 11/06/2024 5:29 PM [facility] Lymphocytes Relative 32.2 % LAB HEMETOLOGY METHOD 11/06/2024 5:29 PM [facility] Monocytes Relative 7.3 % LAB HEMETOLOGY METHOD 11/06/2024 5:29 PM [facility] Eosinophils Relative 0.6 % LAB HEMETOLOGY METHOD 11/06/2024 5:29 PM [facility] Basophils Relative 0.8 % LAB HEMETOLOGY METHOD 11/06/2024 5:29 PM [facility] Immature Granulocytes Relative 0.3 % LAB HEMETOLOGY METHOD 11/06/2024 5:29 PM [facility] Neutrophils Absolute 4.28 1.50 - 7.00 K/mcL LAB HEMETOLOGY METHOD 11/06/2024 5:29 PM EDT [facility] Lymphocytes Absolute 2.34 1.00 - 5.00 K/[facility] LAB HEMETOLOGY METHOD 11/06/2024 5:29 PM EDT [facility] Monocytes Absolute 0.53 0.20 - 1.00 K/[facility] LAB HEMETOLOGY METHOD 11/06/2024 5:29 PM EDT [facility] Eosinophils Absolute 0.04 0.00 - 0.50 K/[facility] LAB HEMETOLOGY METHOD 11/06/2024 5:29 PM EDT [facility] Basophils Absolute 0.06 0.00 - 0.20 K/[facility] LAB HEMETOLOGY METHOD 11/06/2024 5:29 PM EDT [facility] Immature Granulocytes Absolute 0.02 0.00 - 0.03 K/[facility] LAB HEMETOLOGY METHOD 11/06/2024 5:29 PM EDT [facility] Blood Venous blood specimen / Unknown Venipuncture / Unknown 11/06/2024 2:00 PM EDT 11/06/2024 2:00 PM EDT Leela ASHER LAB BLOOD ORDERABLES Final Re sult [facility] [address] [place] [address], * Iron and TIBC (11/06/2024 2:00 PM EDT) Iron 103 40 - 150 mcg/dL LAB CHEMISTRY METHOD 11/06/2024 5:44 PM EDT [facility] TIBC 407 250 - 450 mcg/dL LAB CHEMISTRY METHOD 11/06/2024 5:44 PM EDT [facility] Iron Saturation 25 15 - 50 % LAB CHEMISTRY METHOD 11/06/2024 5:44 PM EDT [facility] Blood Venous blood specimen / Unknown Venipuncture / Unknown 11/06/2024 2:00 PM EDT 11/06/2024 2:00 PM EDT us Leela ASHER LAB BLOOD ORDERABLES Final Re sult Performing Organization Address [facility]/ZIP Co de Phone Number [facility] [address] [place] [address], [place] [phone] * Magnesium (11/06/2024 2:00 PM EDT) [facility] Magnesium 2.1 1.9 - 2.6 mg/dL LAB CHEMISTRY METHOD 11/06/2024 5:44 PM EDT [facility] Blood Venous blood specimen / Unknown Venipuncture / Unknown 11/06/2024 2:00 PM EDT 11/06/2024 2:00 PM EDT us Leela ASHER LAB BLOOD ORDERABLES Final Re sult Performing Organization Address [facility]/ZIP Co de Phone Number [facility] [address] [place] [address], [place] [phone] * Ferritin (11/06/2024 2:00 PM EDT) [facility] Ferritin 74 8 - 252 ng/mL LAB CHEMISTRY METHOD 11/06/2024 6:06 PM EDT [facility] Blood Venous blood specimen / Unknown Venipuncture / Unknown 11/06/2024 2:00 PM EDT 11/06/2024 2:00 PM EDT us Leela ASHER LAB BLOOD ORDERABLES Final Re sult [facility] [address] [place] [address], [place] [phone] * Vitamin B12 (11/06/2024 2:00 PM EDT) [facility] Vitamin B-12 512 250 - 900 pcg/mL LAB CHEMISTRY METHOD 11/06/2024 6:06 PM [facility] Blood Venous blood specimen / Unknown Venipuncture / Unknown 11/06/2024 2:00 PM EDT 11/06/2024 2:00 PM EDT Leela ASHER LAB BLOOD ORDERABLES Final Re sult [facility] [address] [place] [address], [place] [phone] * (ABNORMAL) Comprehensive metabolic panel (11/06/2024 2:00 PM EDT) [facility] Sodium 137 133 - 145 mmol/L LAB CHEMISTRY METHOD 11/06/2024 6:06 PM [facility] Potassium 3.9 3.5 - 5.5 mmol/L LAB CHEMISTRY METHOD 11/06/2024 6:06 PM [facility] Chloride 104 96 - 110 mmol/L LAB CHEMISTRY METHOD 11/06/2024 6:06 PM [facility] CO2 27 21 - 32 mmol/L LAB CHEMISTRY METHOD 11/06/2024 6:06 PM [facility] Anion Gap 6 3 - 11 LAB CHEMISTRY METHOD 11/06/2024 6:06 PM [facility] Glucose 99 70 - 100 mg/dL LAB CHEMISTRY METHOD 11/06/2024 6:06 PM [facility] BUN 12 5 - 25 mg/dL LAB CHEMISTRY METHOD 11/06/2024 6:06 PM [facility] Creatinine 0.62 0.50 - 1.10 mg/dL LAB CHEMISTRY METHOD 11/06/2024 6:06 PM [facility] eGFR 97 >=60 mL/min/1. 73m2 LAB CHEMISTRY METHOD 11/06/2024 6:06 PM EDT [facility] Comment:Calculation based on the Chronic Kidney Disease Epidemiology Collaboration (CKD-EPI) equation refit without adjustment for race. BUN/Creatinine Ratio 19.4 LAB CHEMISTRY METHOD 11/06/2024 6:06 PM [facility] Calcium 9.7 8.5 - 10.5 mg/dL LAB CHEMISTRY METHOD 11/06/2024 6:06 PM [facility] AST (SGOT) 20 10 - 42 unit/L LAB CHEMISTRY METHOD 11/06/2024 6:06 PM [facility] ALT (SGPT) 30 10 - 60 unit/L LAB CHEMISTRY METHOD 11/06/2024 6:06 PM [facility] Alkaline Phosphatase 130(H) 42 - 121 unit/L LAB CHEMISTRY METHOD 11/06/2024 6:06 PM [facility] Total Protein 7.7 6.0 - 8.0 g/dL LAB CHEMISTRY METHOD 11/06/2024 6:06 PM [facility] Albumin 3.9 3.2 - 5.0 g/dL LAB CHEMISTRY METHOD 11/06/2024 6:06 PM [facility] Total Bilirubin 0.5 0.0 - 1.4 mg/dL LAB CHEMISTRY METHOD 11/06/2024 6:06 PM [facility] Blood Venous blood specimen / Unknown Venipuncture / Unknown 11/06/2024 2:00 PM EDT 11/06/2024 2:00 PM EDT us Leela ASHER LAB BLOOD ORDERABLES Final Re sult [facility] [address] [place] [address], * Continuous EEG (10/31/2024 11:29 AM EDT) Narrative Regina Lundberg MD - 11/04/2024 3:36 PM EDT Table formatting from the original result was not included. Images from the original result were not included. [facility] [address] [place] [id number] Ambulatory Electroencephalogram Report Date of service: 10/31/24 Patient Name: Aroldo Rosales Date of : 1955 Age: 69 y.o. Gender: female Procedure Order: Continuous EEG Ordering Provider: Regina Lundberg MD Reason for Exam: Order Questions Answers Type of monitoring Unmonitored With video? No Diagnosis listed on Order: Epilepsy, unspecified, not intractable, without status epilepticus ([facility] V24, [facility] V28) Procedure Performed: 48-hour ambulatory EEG EEG [...] result were not included. [facility] [address] [place] [address] Ambulatory Electroencephalogram Report Date of service: 10/30/24 Patient Name: Aroldo Rsoales Date of : 1955 Age: 69 y.o. Gender: female Procedure Order: Continuous EEG Ordering Provider: Regina Lundberg MD Reason for Exam: Order Questions Answers Type of monitoring Unmonitored With video? No Diagnosis listed on Order: Epilepsy, unspecified, not intractable, without status epilepticus ([facility] V24, [facility] V28) This is a recurrent day study. Please see report with final results. us Regina Lundberg MD NEUROLOGY ORDERABLES Final Result * Continuous EEG (10/29/2024 12:13 PM EDT) Narrative Regina Lundberg MD - 11/04/2024 3:34 PM EDT Table formatting from the original result was not included. Images from the original result were not included. [facility] [address] [place] [address] Ambulatory Electroencephalogram Report Date of service: 10/29/24 Patient Name: Aroldo Rosales Date of : 1955 Age: 69 y.o. Gender: female Procedure Order: Continuous EEG Ordering Provider: Regina Lundberg MD Reason for Exam: Order Questions Answers Type of monitoring Unmonitored With video? No Diagnosis listed on Order: Epilepsy, unspecified, not intractable, without status epilepticus ([facility] V24, [facility] V28) This is a recurrent day study. [...] alternative screening schedule based on john Ordonez., [facility] June 16, 2011 for patients [...] Signed Date: 09/10/2024 11:31 ET Workstation ID: [id number] Transcribed By: Self Edit Transcribed Date: 09/10/2024 [...] Signed Date: 09/10/2024 11:31 ET Workstation ID: [id number] Transcribed By: Self Edit Transcribed Date: 09/10/2024 11:27 ET Luis Vazquez MD IMG DXA PROCEDUR ES Final Result * MG Mammo Digital Screening w Randell bilat (09/10/2024 10:34 AM EDT) Anatomical Region Laterality Modality Breast Bilateral Mammography 09/10/2024 2:16 PM EDT Impressions 09/10/2024 2:23 PM EDT Benign. BI-RADS CATEGORY: 1 - NEGATIVE RECOMMENDATION: Screening bilateral mammogram is recommended in 1 year. Mammo Location: [facility], [address] [place] [address], [id number], . -------- FINAL REPORT -------- Dictated By: Emily Perdomo Dictated Date: 09/10/2024 14:16 ET Assigned Physician: Emily Perdomo Reviewed and Electronically Signed By: Emily Perdomo Signed Date: 09/10/2024 14:23 ET Workstation ID: [id number] Transcribed By: Self Edit Transcribed Date: 09/10/2024 [...] is recommended in 1 year. Mammo Location: [facility], [address] [place] [address], [id number], . -------- FINAL REPORT -------- Dictated By: Emily Perdomo Dictated Date: 09/10/2024 14:16 ET Assigned Physician: Emily Perdomo Reviewed and Electronically Signed By: Emily Perdomo Signed Date: 09/10/2024 14:23 ET Workstation ID: [id number] Transcribed By: Self Edit Transcribed Date: 09/10/2024 14:16 ET Luis Vazquez MD [facility] BI PROCEDURE S Final Result * Hepatitis C Screening (01/24/2024) Hepatitis C Screening abstracted us Historical Provider HEALTH MAINTENANCE Final Result from Last 3 Months or Most Recently Relevant to Health Maintenance Insurance [employer] Care Teams Senior Design Engineering Specialist Relationship Specialty Start Date End Date Luis Vazquez MD [address] [place] [id number] PCP - General 01/16/24
== END 2025-01-07 11:26 | disposition home or self-care (01) ==
LOC: HO.ENCR 10:44
PROVIDERS: PCP Family Medicine; Visit Provider Physician Assistant Medical
DX: E16.2 Hypoglycemia, unspecified (principal); R73.03 Prediabetes

== ENCOUNTER → 2025-01-07 10:43 | Outpatient (BNVA) | payer OTHER, SELFPAY | PROVIDERS: PCP Family Medicine; Visit Provider Physician Assistant Medical | DX: E16.2 Hypoglycemia, unspecified (principal) | CPT/HCPCS: 82947; 99212 ==

== ENCOUNTER 2025-02-10 11:04 | Outpatient (AMB) | payer OTHER, SELFPAY ==
--- NOTE | 2025-02-10 11:18 | A.OFFVIS_ITS ---
Intake Visit Reasons: 3m follow up Allergies prednisone (PREDNISONE) Allergy (Intermediate, Verified 01/07/25 10:49) anxiety doxycycline (DOXYCYCLINE) Allergy (Unknown, Verified 01/07/25 10:49) NAUSEA & VOMITING, vomiting HPI Comments Details: 69 years old woman who was seen in [facility] emergency room in October of 2023 after she passed out in a car. Apparently she complained of having a sensation of doom and then she didn't know what happened. Her daughter said that she became unresponsive and EMS was called. Apparently her blood sugar at that time was in 40s and she was treated by EMS. In hospital, her sugar was normal. The next day, she had another episode and she did not know how long it lasted. She got better without checking sugar or taking it. She was not diabetic and was not taking any diabetic med. A routine EEG was ok. Amb EEG revealed bitemporal sharps. She is presenting with partial seizures. The episodes are characterized by sudden disruptions in her usual activities but do not involve generalized seizure types. There is a family history of seizures noted in her twin brother, who had similar experiences due to scar tissue. Currently, she is on a regimen of levetiracetam, with a dosage of 250 mg at 1:00 AM and 1:00 PM, although an increase in dosage has been planned as the current dose is believed to be inadequate. The patient is aware of the prior need to increase medication gradually and acknowledges that already there has been a noticeable improvement. Despite these episodes, there are no reports of grand mal seizures, no aura, or significant post-seizure symptoms. [facility] Medical History (Updated 02/10/25 @ 11:20 by Regina Lundberg MD) Seizure disorder Prediabetes Adrenal gland anomaly Hypoglycemia Breast calcification, left Obesity Post-menopausal Screening for breast cancer Screening for diabetes mellitus Acute sinusitis Hyperlipidemia Hypertension Surgical History History of surgery History of lateral meniscus repair of left knee History of tooth extraction History of hip surgery History of cholecystectomy Family History Father Cerebral aneurysm Mother Stroke Renal failure Maternal Grandmother Glaucoma Brother Diabetes Social History Housing: Apartment Alcohol intake: never Patient Tobacco Use Status: Former Tobacco user Tobacco use type: Cigarette e-Cigarette/Vaping Use: Never Used Second Hand Smoke Exposure: No Substance Use Type: Marijuana service: No Current occupational status: retired Cognitive needs: No Hearing needs: No Vision needs: No Review of Systems Const Details: - Neurologic: Reports partial seizures. Denies generalized tonic-clonic seizures. Physical Exam Neuro Other: Mental Status: Alert and oriented to person, place, and time. Normal attention. Normal spontaneous speech, fluency, and comprehension. No obvious issues with mood and memory. Affect is appropriate. Cranial Nerves: CN II: Visual saunders full to confrontation, visual acuity intact. CN III, IV, : Pupils equal, round, reactive to light and accommodation. Extraocular movements are normal. CN V: Facial sensation is normal. CN VII: Facial movements symmetrical. CN VIII: Hearing intact to bedside conversation is normal. CN IX, X: Palate elevates symmetrically. CN XI: Shoulder shrug and head turn symmetrical. CN XII: Tongue midline without atrophy or fasciculations. Extrapyramidal: Full facial expressions and blinking. No rigidity. Movements are appropriate with no tremor or abnormality. Speech: Normal; no dysarthria or tremor. Assessment & Plan Assessment & Plan (1) Seizure disorder: Comment: Amb EEG at [facility] in October 2024: Bitemporal sharps EEG at [facility] in Mar 2024: WNL CT brain WO at [facility] in October 2023: [place] Code(s): G40.909 - Epilepsy, unspecified, not intractable, without status epilepticus Category: Medical Plan Impression: Complex partial seizure disorder Rec: Increase dose of keppra to 500mg bid During our discussion, I explained to the patient that she has been experiencing partial seizures, not grand mal seizures. We talked about increasing her levetiracetam dosage from 250 mg once in the morning and evening to two tablets each in both intervals. I explained that while this may improve seizure control, she should be aware of potential side effects, such as dizziness. The patient was understanding of the adjustments, agreed to the dosage change, and her prescription will be sent to [facility]. We agreed to a follow-up visit in six months to evaluate her progress. Medications: Changed From levetiracetam (Keppra) 250 mg PO BID To levetiracetam (Keppra) 500 mg (2 x 250 mg) PO BID 360 tabs 1RF Coding Level of Care Code Est Pt Level 4 (87530) Diagnoses Seizure disorder G40.909
--- OUTSIDE RECORDS SUMMARY | 2025-02-10 14:46 | XMS_ITS | Clinical Summary ---
Author Organization [employer] Address [address] [facility] [address] [place] [address] Care Team Providers Care Bowling Alley Mechanic Name Role Phone Unavailable Primary Care Provider [...] Exam 06/24/2023 12/21/2022 Dental Prophylaxis 06/24/2023 12/21/2022 Tobacco Screening 03/29/2024 03/29/2023 COVID-19 Vaccine (4 - 2024-2 6 season) 2025 04/17/2021, 08/19/2020, 07/22/2020 Influenza Vaccine (#1) 2025 , 03/27/2019 Dental [...] Most Recently Relevant to Health Maintenance [place] [address] [place] [address]
--- OUTSIDE RECORDS SUMMARY | 2025-02-10 14:46 | XMS_ITS | Clinical Summary ---
Author Organization [facility] [address] [facility] Address [address] [place] [address] Phone Care Team Providers Care Supervisor Hand Workers Name Role Phone Luis Vazquez MD Primary Care Pr ovider Allergies Active Allergy Reactions Criticality Noted Date Comments Azithromycin 01/24/2024 Doxycycline 01/24/2024 Lisinopril Dry Mouth 01/16/2025 Cough/SOB Nsaids (Non-Steroidal Anti-Inflammatory Drug) Hallucinations 05/31/2024 Prednisone 01/24/2024 Medications cholecalciferol (VITAMIN D-3) 50 mcg (2,000 unit) tabletIndications: Osteopenia of right hip Take 1 tablet (2,000 Units total) by mouth 1 (one) time each day. 90 tablet 3 09/11/19 25 026 Active Dexcom G7 Sensor device 1 EA. 08/09/19 25 Active cetirizine (ZyrTEC) 10 mg tablet Take 1 tablet (10 mg total) by mouth 1 (one) time each day. 10/15/19 23 Active FreeStyle Lancets 28 gauge lancets 1 each by Other route if needed. 04/05/20 24 Active levETIRAcetam (KEPPRA) 250 mg tabletIndications: Seizure disorder (CMS/HCC V24, CMS/HCC V28) Take 1 tablet (250 mg total) by mouth 2 (two) times a day. 06/17/20 25 Active busPIRone (BUSPAR) 5 mg tabletIndications: Generalized anxiety disorder Take 1 tablet (5 mg total) by mouth 2 (two) times a day. 180 each 12/06/19 25 025 Active atorvastatin (LIPITOR) 20 mg tabletIndications: Mixed hyperlipidemia Take 1 tablet (20 mg total) by mouth at bedtime. 90 each 1 12/06/19 25 026 Active polyethylene glycol (Golytely) 236-22.74-6.74 -5.86 gram solution Take 4L by mouth once for one dose. May substitue any PEG. Starting at 2PM the day before your procedure drink 1 8oz glasses at your own pace until you complete half of the gallon. Finish 2nd half of the gallon at 8PM. 4000 mL 02/06/20 25 Active bisacodyL (DULCOLAX) 5 mg EC tablet Take 2 tablets by mouth right before beginning bowel prep. See instructions provided by the office 2 tablet 02/06/20 25 Active cyclobenzaprine (FLEXERIL) 5 mg tablet Take 1 tablet (5 mg total) by mouth 3 times daily as needed. 025 Discontin ued(Thera py completed ) lisinopriL (PRINIVIL,ZESTRIL) 2.5 mg tablet Take 1 tablet (2.5 mg total) by mouth 1 (one) time each day. 30 tablet 2 11/07/19 25 025 Discontin ued(Side effects) pramipexole (MIRAPEX) 0.25 mg tabletIndications: Restless leg syndrome Take 1 tablet (0.25 mg total) by mouth at bedtime. 90 each 1 12/06/19 25 025 Discontin ued(Thera py completed ) Active Problems Problem Noted Date Diagnosed Date Seizure disorder (CMS/HCC V24, CMS/HCC V28) 11/26 Assessment & Plan (12/05/2024 12:06 [...] Generalized anxiety disorder 04/17/2024 Assessment & Plan (01/16/2025 10:46 AM EDT): She will start BuSpar 5 mg twice daily Assessment & Plan (12/05/2024 12:06 PM EDT): [...] bones 02/08/2024 Hyperlipidemia 02/07/2024 Assessment & Plan (01/16/2025 10:46 AM EDT): Continue atorvastatin 20 mg Assessment & Plan (12/05/2024 12:06 PM EDT): [...] CT head, facial bones, cervical spine 01/28/24 ([facility] [place] [place], ER visit s/p mechanical fall) 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 She will remain off lisinopril indefinitely. Will not starting new blood pressure medication today given her blood pressure is controlled today and has been controlled at home over the past few days. She will continue home blood pressure monitoring and return in 2 weeks for blood pressure check She will return sooner if her blood pressure levels are elevated Assessment & Plan (12/05/2024 12:06 PM EDT): Well-controlled. Continue lisinopril 2.5 mg daily Edentulous maxilla 03/29/2023 Encounters Date Type Department Care Team Description 01/16/2025 10:00 AM EDT Office Visit Adult Medicine [address] [phone] Luis Vazquez MD Primary hypertension (Primary Dx); Shortness of breath; Generalized anxiety disorder; Mixed hyperlipidemia 01/14/2025 Telephone Adult Medicine [address] [phone] Luis Vazquez MD 01/14/2025 Telephone Adult Medicine [address] [phone] Luis Vazquez MD 12/26/2024 Telephone Adult Medicine [address] [phone] Luis Vazquez MD 12/05/2024 9:00 AM EDT Office Visit Adult [address] [phone] Luis Vazquez MD Annual wellness visit (Primary Dx); Mixed hyperlipidemia; Prediabetes; Primary hypertension; Restless leg syndrome; Generalized anxiety disorder; Mild depression; Seizure disorder (CMS/HCC V24, CMS/HCC V28); Colon cancer screening; Osteopenia of right hip; Vitamin D deficiency 11/20/2024 Telephone Adult Medicine [address] [phone] Magda Chery RN from Last 3 Months Immunizations Name Administration [...] DX:Atheroscleros is; COMMENT: CT head/facial bones/Cspine 01/28/24 [facility] (seen at ER s/p mechanical fall) - [...] Sign Reading Time Taken Comments Blood Pressure 120/78 01/16/2025 10:00 AM EDT Pulse 62 01/16/2025 10:00 AM EDT Temperature 36.8 C (98.2 F) 01/16/2025 10:00 AM EDT Respiratory Rate 16 01/16/2025 10:00 AM EDT Oxygen Saturation 97% 01/16/2025 10:00 AM EDT Inhaled Oxygen Concentration - - Weight 76.2 kg (168 lb) 01/16/2025 10:00 AM EDT Height 160 cm (5' 3 ) 01/16/2025 10:00 AM EDT Body Mass Index 29.76 01/16/2025 10:00 AM EDT Plan of Treatment Upcoming Encounters Date Type Department Care Team (Late st Contact Info) Description 02/19/2025 1:30 PM EDT Appointment [facility] Endoscopy [address] [place] [phone] Atif Lopez MD [address] [facility] [address] [place] [id number] 03/07/2025 10:30 AM EDT Office Visit Adult Medicine [facility] - [address] [phone] Leela Faustin PA [address] [place] [phone] 09/15/2025 9:20 AM EDT Appointment Radiology Department - [address] [phone] Health Maintenance Due Date Last Done Comments Zoster Vaccines (1 of 2) 2006 Hepatitis B Vaccines (1 of 3 - Risk 3-dose series) 2016 RSV Immunization Adult Patients (1 - Risk 60-74 years 1-dose series) 2016 Colorectal Cancer Screening: Colonoscopy 03/05/2024 COVID-19 Vaccine (4 - 2024-2 6 season) 2025 04/17/2021, 08/19/2020, 07/22/2020 Influenza Vaccine (#1) 2025 , 04/17/2020, 03/27/2019 [...] 12/23/2024 12:23 PM EDT Vitamin D deficiency COMPREHENSIVE METABOLIC PANEL Routine 11/06/2024 2:00 PM EDT Primary hypertension BD BONE DENSITY DXA AXIAL SKELETON Routine [...] LAB CHEMISTRY METHOD 12/23/2024 4:57 PM EDT [facility] Triglycerides 96 0 - 150 mg/dL LAB CHEMISTRY METHOD 12/23/2024 4:57 PM EDT [facility] HDL 59 >=40 mg/dL LAB CHEMISTRY METHOD 12/23/2024 4:57 PM EDT [facility] LDL Calculated 65 0 - 100 mg/dL LAB CHEMISTRY METHOD 12/23/2024 4:57 PM EDT [facility] VLDL Cholesterol Nicola 19.2 mg/dL LAB CHEMISTRY METHOD 12/23/2024 4:57 PM EDT [facility] Non HDL Chol. (LDL+VLDL) 84 <145 mg/dL LAB CHEMISTRY METHOD 12/23/2024 4:57 PM EDT [facility] Chol/HDL Ratio 2.4 0.0 - 4.4 LAB CHEMISTRY METHOD 12/23/2024 4:57 PM EDT [facility] Blood Venous blood specimen / Unknown Venipuncture / Unknown 12/23/2024 12:23 PM EDT 12/23/2024 12:24 PM EDT Luis Vazquez MD LAB BLOOD ORDERA BLES Final Result [facility] [address] [place] [address], [place] [phone] * Vitamin D 25 hydroxy (12/23/2024 12:23 PM EDT) Vit D, 25-Hydroxy 44.2 30.0 - 80.0 ng/mL LAB CHEMISTRY METHOD 12/23/2024 6:17 PM EDT [facility] Blood Venous blood specimen / Unknown Venipuncture / Unknown 12/23/2024 12:23 PM EDT 12/23/2024 12:24 PM EDT Luis Vazquez MD LAB BLOOD ORDERA BLES Final Result [facility] [address] [place] [address], [place] [phone] * Hemoglobin A1c (12/23/2024 12:23 PM EDT) [facility] Hemoglobin A1C 5.7 <6.5 % LAB CHEMISTRY METHOD 12/23/2024 7:04 PM EDT [facility] Mean Bld Glu Estim. 117 mg/dL LAB CHEMISTRY METHOD 12/23/2024 7:04 PM T [facility] Blood Venous blood specimen / Unknown Venipuncture / Unknown 12/23/2024 12:23 PM EDT 12/23/2024 12:24 PM EDT Luis Vazquez MD LAB BLOOD ORDERA BLES Final Result [facility] [address] [place] [address], * (ABNORMAL) Comprehensive metabolic panel (11/06/2024 2:00 PM EDT) [facility] Sodium 137 133 - 145 mmol/L LAB CHEMISTRY METHOD 11/06/2024 6:06 PM [facility] Potassium 3.9 3.5 - 5.5 mmol/L LAB CHEMISTRY METHOD 11/06/2024 6:06 PM [facility] Chloride 104 96 - 110 mmol/L LAB CHEMISTRY METHOD 11/06/2024 6:06 PM [facility] CO2 27 21 - 32 mmol/L LAB CHEMISTRY METHOD 11/06/2024 6:06 PM [facility] Anion Gap 6 3 - 11 LAB CHEMISTRY METHOD 11/06/2024 6:06 PM [facility] Glucose 99 70 - 100 mg/dL LAB CHEMISTRY METHOD 11/06/2024 6:06 PM [facility] BUN 12 5 - 25 mg/dL LAB CHEMISTRY METHOD 11/06/2024 6:06 PM [facility] Creatinine 0.62 0.50 - 1.10 mg/dL LAB CHEMISTRY METHOD 11/06/2024 6:06 PM [facility] eGFR 97 >=60 mL/min/1. 73m2 LAB CHEMISTRY METHOD 11/06/2024 6:06 PM [facility] Comment:Calculation based on the Chronic Kidney Disease Epidemiology Collaboration (CKD-EPI) equation refit without adjustment for race. BUN/Creatinine Ratio 19.4 LAB CHEMISTRY METHOD 11/06/2024 6:06 PM [facility] Calcium 9.7 8.5 - 10.5 mg/dL LAB CHEMISTRY METHOD 11/06/2024 6:06 PM [facility] AST (SGOT) 20 10 - 42 unit/L LAB CHEMISTRY METHOD 11/06/2024 6:06 PM [facility] ALT (SGPT) 30 10 - 60 unit/L LAB CHEMISTRY METHOD 11/06/2024 6:06 PM [facility] Alkaline Phosphatase 130(H) 42 - 121 unit/L LAB CHEMISTRY METHOD 11/06/2024 6:06 PM [facility] Total Protein 7.7 6.0 - 8.0 g/dL LAB CHEMISTRY METHOD 11/06/2024 6:06 PM [facility] Albumin 3.9 3.2 - 5.0 g/dL LAB CHEMISTRY METHOD 11/06/2024 6:06 PM [facility] Total Bilirubin 0.5 0.0 - 1.4 mg/dL LAB CHEMISTRY METHOD 11/06/2024 6:06 PM [facility] Blood Venous blood specimen / Unknown Venipuncture / Unknown 11/06/2024 2:00 PM EDT 11/06/2024 2:00 PM EDT us Leela ASHER LAB BLOOD ORDERABLES Final Re sult [facility] [address] [place] [address], * BD Bone Density DXA Axial Skeleton (09/10/2024 11:04 AM EDT) Anatomical Region Laterality Modality Wrist, Hip, L-spine Bone Densito metry 09/10/2024 11:2 7 AM EDT Impressions 09/10/2024 11:31 AM EDT Impression: This patient is considered to have osteopenia by WHO criteria. FRAX not reported because patient has history of prior hip or vertebral fracture. [facility] Department of Internal Medicine recommends using [...] alternative screening schedule based on john Ordonez., [facility] June 16, 2011 for patients [...] Signed Date: 09/10/2024 11:31 ET Workstation ID: [id number] Transcribed By: Self Edit Transcribed Date: 09/10/2024 [...] of prior hip or vertebral fracture. [facility] Department of Internal Medicine recommendsusing National [...] screening schedule based on katya Ordonez al., [facility] for patients with osteopenia (based on [...] Signed Date: 09/10/2024 11:31 ET Workstation ID: [id number] Transcribed By: Self Edit Transcribed Date: 09/10/2024 11:27 ET Luis Vazquez MD IMG DXA PROCEDUR ES Final Result * [facility] Mammo Digital Screening w Randell bilat (09/10/2024 10:34 AM EDT) Anatomical Region Laterality Modality Breast Bilateral Mammography 09/10/2024 2:16 PM EDT Impressions 09/10/2024 2:23 PM EDT Benign. BI-RADS CATEGORY: 1 - NEGATIVE RECOMMENDATION: Screening bilateral mammogram is recommended in 1 year. Mammo Location: [facility], [address] [place] [address], [id number], . -------- FINAL REPORT -------- Dictated By: Emily Perdomo Dictated Date: 09/10/2024 14:16 ET Assigned Physician: Emily Perdomo Reviewed and Electronically Signed By: Emily Perdomo Signed Date: 09/10/2024 14:23 ET Workstation ID: [id number] Transcribed By: Self Edit Transcribed Date: 09/10/2024 [...] areas of fibroglandular density. Procedure Note Emily Pedromo MD - 09/10/2024 CLINICAL: 69 years old, [...] is recommended in 1 year. Mammo Location: [facility], [address] [place] [address], [id number], . -------- FINAL REPORT -------- Dictated By: Emily Perdomo Dictated Date: 09/10/2024 14:16 ET Assigned Physician: Emily Perdomo Reviewed and Electronically Signed By: Emily Perdomo Signed Date: 09/10/2024 14:23 ET Workstation ID: [id number] Transcribed By: Self Edit Transcribed Date: 09/10/2024 14:16 ET us Luis Vazquez MD IMG BI PROCEDURE S Final Result * Hepatitis C Screening (01/24/2024) Hepatitis C Screening abstracted us Historical Provider HEALTH MAINTENANCE Final Result from Last 3 Months or Most Recently Relevant to Health Maintenance Insurance [employer] Care Teams Supervisor Hand Workers Relationship Specialty Start Date End Date Luis Vazquez MD [address] [place] [phone] PCP - General 01/16/24
== END 2025-02-10 11:24 | disposition home or self-care (01) ==
LOC: HO.HSM 11:05
PROVIDERS: PCP Family Medicine; Referring Provider Internal Medicine; Visit Provider Psychiatry & Neurology Neurology
DX: G40.909 Epilepsy, unspecified, not intractable, without status epilepticus (principal)
CPT/HCPCS: 99214

== ENCOUNTER → 2025-02-10 11:04 | Outpatient (BNVA) | payer OTHER, SELFPAY | PROVIDERS: PCP Family Medicine; Referring Provider Internal Medicine; Visit Provider Psychiatry & Neurology Neurology | DX: G40.909 Epilepsy, unspecified, not intractable, without status epilepticus (principal) | CPT/HCPCS: 99212 ==